=== PATIENT | male | born 1960 ===

== ENCOUNTER 2016-12-25 18:07 | Inpatient (IN) ==
[2016-12-25] MEDS ORDERED: ALBUTEROL/IPRATROPIUM 3 ML NEB RESP TX STA (18:26)
[2016-12-25] MEDS ORDERED: FUROSEMIDE 40 MG/4 ML VIAL IV STA (18:26)
[2016-12-25] MEDS ORDERED: PHENYLEPHRINE DRIP 40 MG/250 ML PREMIX IV ONE (18:30)
--- NOTE | 2016-12-25 18:31 | EKG Report ---
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
[2016-12-25 18:38] LABS: Basophils # 0.1 10*3/uL (0.0-0.2); Basophils % 0.2 % (0.0-0.8); Hematocrit 40.9 VOL% (42.0-52.0); Hemoglobin 13.4 GM/DL (14.0-18.0); Immature Granulocytes % 2.1 %; Immature Granulocytes Absolute 0.43 #; Lymphocytes # 0.9 10*3/uL (1.4-4.0); Lymphocytes % 4.2 % (21.2-54.2); Mean Corpuscular HGB Conc 32.8 GM/DL (32-36); Mean Corpuscular Hemoglobin 31 PG (27-34); Mean Corpuscular Volume 93.6 FL (87-102); Neutrophils # 18.2 10*3/uL (1.4-7.4); Neutrophils % 88.5 % (38.7-73.9); Platelet Count 128 T/CUMM (130-400); Red Blood Count 4.37 MC/CUMM (3.8-5.5); Red Cell Distribution Width 13.3 % (9.3-17.3); White Blood Count 20.6 T/CUMM (4-12)
--- NOTE | 2016-12-25 18:41 | Emergency Department Note ---
Steven Castano Brittany, am scribing for, and in the presence of, Adeel Mix MD 18:39. Dominguez Castano Charles R, MD, personally performed the services described in this documentation, ascribed by Sandra Harris in my presence, and it is both accurate and complete [id number] . Arrival - Arrival Chief Complaint: Weakness Stated Complaint: Weakness; hypotension ED Nursing Triage Note: Brought in by EMS c/o generalized weakness and hypotension-onset this morning. EMS reports patient's BP was 42/26 upon their arrival at the clinic. Denies pain or SOB. Currently on Dopamine infusion started en route. Mode of Arrival: Stretcher Limitations: No Limitations Source: Patient Time Seen by Provider: 12/25/16 18:20 - History of Present Illness HPI Narrative: This is a 56 y/o [place] male, who presents to the ED by EMS for further evaluation of generalized weakness and hypotension which started earlier this morning. Per EMS, pt's states pt was not acting himself either. Pt denies any CP or SOB. Pt was started on a Dopamine infusion en route. Pt's BP was 42/ 26 upon arrival at [facility]. Pt's denies a fever. Pt has no other complaints/ pain in the ED at this time. Pt has a PMHx of seizures and cellulitis. Pt denies a surgical Hx. Pt denies a family medical Hx. Pt denies the use of tobacco products and street drugs, but drinks alcohol on occasional. Onset (ago): hour(s) (Started this morning) Consistency: constant Severity: moderate Allergies/Adverse Reactions: Allergies Allergy/AdvReac Type Severity Reaction Status Date / Time No Known Allergies Allergy Verified 12/25/16 18:16 Review of System - Review of System 12 point system: reviewed and no additional remarkable complaints except as stated - Review of System Constitutional: Present: weakness (Generailzed ). Absent: fever Cardiovascular: Absent: chest pain, dyspnea on exertion Endocrine: Present: other (Hypotension) Medical,Surgical,& Family Hx - Medical History Neurology: History of: Seizures Other: History of: Skin Problems (cellulitis) - Social History Smoking Status: Never smoker Frequency of Alcohol Use: Occasionally Type of Drug Use: None Exam Vital Signs: Vital Signs Temperature 97.6 F 12/25/16 18:12 Pulse Rate 90 12/25/16 18:55 Respiratory Rate 20 12/25/16 18:55 Blood Pressure 93/44 12/25/16 18:47 O2 Sat by Pulse Oximetry 100 12/25/16 18:55 - General General appearance: alert, in no apparent distress, other (Bloating to the entire body) - Head Head exam: Present: atraumatic, normocephalic, normal inspection - Eye Eye exam: Present: normal appearance, PERRL, EOMI. Absent: nystagmus, miosis - ENT ENT exam: Present: normal exam, normal oropharynx, TM's normal bilaterally - Neck Neck exam: Present: normal inspection, full ROM, trachea midline. Absent: tenderness, meningismus, lymphadenopathy, thyromegaly - Chest Chest inspection: Present: normal inspection, symmetric chest wall rise. Absent : tenderness, rash, abscess - Respiratory Respiratory exam: Present: rales - Cardiovascular Cardiovascular exam: Present: normal rhythm, tachycardia, murmur (4 out of 6 systolic injection murmur) - Abdominal Exam Abdominal exam: Present: soft, normal bowel sounds. Absent: distention, tenderness, guarding, rebound, rigidity - Rectal Exam Rectal exam: Present: deferred - Extremities Exam Extremities exam: Present: normal inspection, full ROM, normal capillary refill. Absent: tenderness, pedal edema, joint swelling, calf tenderness - Back Exam Back exam: Present: normal inspection, full ROM. Absent: tenderness, muscle spasm, rashes - Neurological Exam Neurological exam: Present: alert, oriented X3, CN II-XII intact. Absent: motor sensory deficit - Psychiatric Psychiatric exam: Present: normal affect, normal mood. Absent: depressed, agitated, anxious, manic - Skin Skin exam: Present: warm, dry, intact, normal color. Absent: rash, cyanosis, diaphoresis ( ), erythema, pallor, mottled Course - Consultations Consultation #1: Hospitalist will admit patient Time: 19:24 Consultation #2: Dr. Sepulveda will come see patient emergency room Time: 19:24 Results - Labs CBC & BMP: 12/25/16 18:18 12/25/16 18:18 Lab Results: I have reviewed the patients labs Critical Care Time Critical Care Time: Yes Total Critical Care Time: 90 Disposition Clinical Impression: Hypotension, Leukocytosis, Thrombocytopenia, Cardiomegaly, Exertional dyspnea, Confusion, Metabolic acidosis, Subtherapeutic serum dilantin level, History of seizures, Hypomagnesemia, Acute renal failure, Anasarca associated with disorder of kidney, Cellulitis of right lower extremity Case discussed with: patient, patient's family Disposition: Still a Patient Condition: Critical Time of Disposition: 19:41
[2016-12-25] MEDS ORDERED: cefTRIAXone 1,000 MG in SODIUM CHLORIDE 0.9% 100 ML IV STA (18:47)
[2016-12-25 18:48] LABS: INR 1.2; PT Patient Result 12.7 SECS
[2016-12-25] MEDS: PHENYLEPHRINE DRIP 40 MG/250 ML PREMIX IV SCH ×2 (18:51→22:54)
[2016-12-25 18:53] LABS: ABG Base Excess -12.7 MMOL/L (-2.5-2.5); ABG HCO3 14.7 MMOL/L (20-26); ABG Oxygen Saturation 95.9 % (95-100); ABG PCO2 39.6 MM HG (35-48); ABG PO2 95.8 MM HG (80-95); ABG TCO2 13.8 MMOL/L (23-27)
[2016-12-25 18:56] LABS: Ammonia 44 UMOL/L (11-32)
[2016-12-25 18:58] LABS: Apearance,Urine CLOUDY (Clear); Bacteria,Urine Occasional /HPF (Few); Bilirubin,Urine Negative (Negative); Blood, Urine Moderate mg/dL (Negative); Glucose,Urine (UA) Negative (Negative); Ketones,Urine Negative (Negative); Mucus,Urine Occasional /LPF (Occasional); Nitrite,Urine Negative (Negative); Protein,Urine 30 MG/DL; RBC,Urine 6 /HPF (0-4); Squamous Epithelial Cell,Urine Occasional /HPF (0-10); Urine Color Yellow (Yellow); Urine Specific Gravity 1.009 (1.001-1.035); Urine Urobilinogen < 2.0 EU/DL (0.2-1.0); WBC,Urine 2 /HPF (0-6)
--- NOTE | 2016-12-25 19:00 | XRay Report ---
Portable chest. Indication: Altered mental status. Comparison: September 04, 2014. The heart is enlarged. There is uncoiling of the thoracic aorta. There is calcific plaque present within the right knob. The pulmonary vasculature is normal. There is elevation of the right hemidiaphragm. No consolidation, pneumothorax, or pleural effusion. Degenerative changes are noted within the spinal column. Impression: Cardiomegaly. Chronic elevation the right hemidiaphragm. PROCEDURE INTERPRETED AT [facility] DEPARTMENT OF RADIOLOGY Final Report Signed by: Dr. Manisha Reynolds
[2016-12-25 19:02] LABS: ABG PH 7.192 (7.35-7.45)
[2016-12-25] MEDS ORDERED: SODIUM BICARBONATE 50 MEQ/50 ML VIAL IV STA (19:03)
[2016-12-25 19:04] LABS: Barbiturates Screen,Urine Negative (Negative); Benzodiazepines Screen,Urine Negative (Negative); Cannabinoid Screen,Urine Negative (Negative); Opiate Screen,Urine Negative (Negative); Phencyclidine Screen,Urine Negative (Negative)
[2016-12-25 19:06] LABS: Band Neutrophils 19 % (0-10); Lymphocytes 3 % (20-55); Metamyelocytes 1 %; Myelocytes 2 %; Platelet Estimate Adequate; Segmented Neutrophils 69 % (50-85); Total Cells Counted 100
[2016-12-25 19:08] LABS: Alanine Aminotransferase 36 U/L (16-61); Albumin 3.3 G/DL (3.4-5.0); Alkaline Phosphatase 90 U/L (45-117); Aspartate Amino Transferase 78 U/L (0-37); Blood Urea Nitrogen 29 MG/DL (7-18); Calcium 8.3 MG/DL (8.5-10.1); Glucose 133 MG/DL (74-106); Magnesium 1.3 MG/DL (1.8-2.4); Osmolality,Calculated 282.7 MOS/KG (273-304); Potassium 3.7 MMOL/L (3.5-5.1); Sodium 138 MMOL/L (136-145)
[2016-12-25] MEDS ORDERED: SODIUM BICARBONATE 50 MEQ/50 ML SYRINGE IV ONE (19:08)
[2016-12-25] MEDS ORDERED: PHENYTOIN INJ 1,000 MG in SODIUM CHLORIDE 0.9% 100 ML IV STA (19:11)
[2016-12-25] MEDS ORDERED: cefTRIAXone 1,000 MG VIAL ONE (19:12)
[2016-12-25] MEDS ORDERED: MAGNESIUM SULF RIDER 2 GM in PREMIX 1 EACH IV STA (19:12)
[2016-12-25] MEDS ORDERED: SODIUM CHLORIDE 0.9% 100 ML IV ONE (19:12)
[2016-12-25 19:24] LABS: Prolactin 11.8 NG/ML
--- NOTE | 2016-12-25 19:29 | CT Report ---
CT of the head without contrast. Indication: Mental status changes. Comparison: August 27, 2014. There is calcific plaque present within the intracranial internal carotid arteries, and some vertebral calcification as well. There is encephalomalacia involving the left posterior frontal lobe, and ex vacuo dilatation of the left lateral ventricle. There are areas of low density along the medial frontal lobes bilaterally, left greater than right, consistent with ischemic change, likely from the IRCARDO distribution. Right basal ganglial lacunar infarct cannot be excluded. There is no mass effect or midline shift. There is no evidence of acute hemorrhage. The calvarium is intact. The included paranasal sinuses and the mastoid air cells are clear. Impression: 1. Stable area of encephalomalacia involving the left frontal lobe. This may be related to remote infarct, previous trauma, or previous hemorrhage. 2. Scattered areas of low density in both A1 distributions, likely related to previous ischemia. Suspected remote lacunar infarct in the right basal ganglia. No definite acute process seen. The CT exam was performed using one or more of the following dose reduction techniques: Automated exposure control, adjustment of the mA and/or kV according to patient size, or use of iterative reconstruction technique. PROCEDURE INTERPRETED AT [facility] DEPARTMENT OF RADIOLOGY Final Report Signed by: Dr. Manisha Reynolds
[2016-12-25] MEDS ORDERED: PIPERACILLIN/TAZOBACTAM 2,250 MG in SODIUM CHLORIDE 0.9% 100 ML IV STA (19:39)
[2016-12-25] MEDS ORDERED: LACTATED RINGERS 500 ML IV ONE (19:40)
[2016-12-25 19:44] LABS: Sedimentation Rate-Westergren 38 MM/HR (0-20)
[2016-12-25] MEDS ORDERED: MAGNESIUM SULF RIDER 50 ML IV ONE (19:48)
--- NOTE | 2016-12-25 19:59 | Hospitalist History & Physical ---
Assessment and Plan (1) Septic shock Status: Acute Assessment and plan: Right lower extremity cellulitis, lactic acid is pending hypotensive on Artur- Synephrine, 500 mL IV bolus given we will give another 2 L normal saline. Patient morbidly obese with a large heart uncomfortable giving 30 mL's per kilo , admitted to the ICU, will need central line, will give zosyn and daptomycin Current Visit: Yes (2) Cirrhosis Status: Acute Assessment and plan: Patient is an alcoholic, platelet count is 128, hemoglobin 13.4, ammonia elevated at 44 Current Visit: Yes (3) ANDRIA (obstructive sleep apnea) Status: Acute Assessment and plan: Unofficially diagnosed Dr. Campuzano to see tomorrow Current Visit: Yes (4) Elevated troponin Status: Acute Assessment and plan: serial troponins and EKG, denies chest pain, stat echo at bedside, Dr Sepulveda is coming to see in ER Current Visit: Yes (5) History of seizures Status: Acute Assessment and plan: dilantin load in Er, dilantin 100 mg IV tid, dilantin level in am Current Visit: Yes (6) Hypomagnesemia Status: Acute Assessment and plan: replacing 4 grams in ER, repeat mg in am Current Visit: Yes (7) Acute renal failure Status: Acute Assessment and plan: us renal and hydration, may be atn due to hypotension, serial bmp Current Visit: Yes (8) Cellulitis of right lower extremity Status: Acute Assessment and plan: daptomycin and zosyn. Current Visit: Yes History of Present Illness Chief complaint: fatigue History of present illness: Mr. Rolon is a 56 y/o [place] male, who presents to the ED by EMS for further evaluation of generalized weakness and hypotension which started earlier this morning. Per EMS, pt's states pt was confused and was severely fatigued. Pt denies any CP or SOB even though he has a troponin of [address] depression in lateral leads. Pt was started on a Dopamine infusion en route as his BP was 42/ 26 upon arrival at [facility]. Pt's denies a fever and he reports no neck stiffness. Patient has chronic lymphedema and severe swelling and erythema of his RLE. Patient is in septic shock. I asked Dr. Sepulveda to see him in the ER. Patient has history of stroke and seizures and is on dilantin at home. He drinks daily approx 3 beers a day. Allergies Allergy/AdvReac Type Severity Reaction Status Date / Time No Known Allergies Allergy Verified 12/25/16 18:16 Medical,Surgical,& Family Hx - Medical History Cardio: No history of: Hypertension Neurology: History of: Cerebrovascular Accident, Seizures Endocrine: No history of: Diabetes Mellitus (NIDDM) Respiratory: History of: Obstructive Sleep Apnea No history of: COPD Other: History of: Skin Problems (cellulitis) - Surgical History Abdominal Surgeries: Surgical HX of: Hernia Repair - Family History Family History: Reports;: Family Diabetes - Social History Smoking Status: Never smoker Frequency of Alcohol Use: Frequently (daily) Type of Drug Use: None Marital Status: Functional capacity: uses cane/walker - Constitutional Constitutional: Present: chills. Absent: fatigue, fever(s), frequent falls, headache(s) - EENT Eyes: Absent: blurry vision, diplopia Ears: Absent: decreased hearing, ear discharge Nose, mouth and throat: Absent: headache(s), sore throat - Cardiovascular Cardiovascular: Present: edema. Absent: chest pain at rest, dyspnea, dyspnea on exertion - Respiratory Respiratory: Present: snoring. Absent: dyspnea, dyspnea on exertion - Gastrointestinal Gastrointestinal: Absent: abdominal pain, constipation, diarrhea, nausea, vomiting - Genitourinary Genitourinary: Absent: difficulty urinating, dysuria - Neurological Neurological: Present: confusion, dizziness. Absent: headache(s), syncope - Psychiatric Psychiatric: Present: depression. Absent: anxiety - Endocrine Endocrine: Present: cold intolerance, fatigue - Hematologic/Lymphatic Hematologic/Lymphatic: Absent: easy bleeding, easy bruising Exam - Constitutional Vitals: Period Temp Pulse Resp BP Sys/Frazier Pulse Ox Last 24 Hr 97.6 F-97.6 F 83-123 16-20 59-118/29-48 94-100 General appearance: severe distress, morbidly obese - Head Head exam: Present: normal inspection, normocephalic - Eye Eye exam: Present: EOMI. Absent: scleral icterus Pupils: Present: GAYLE, normal accommodation - ENT ENT exam: Present: normal exam, normal external ear exam - Neck Neck exam: Present: thyromegaly. Absent: lymphadenopathy - Respiratory Respiratory exam: Present: decreased breath sounds, rhonchi. Absent: wheezes - Cardiovascular Cardiovascular exam: Present: systolic murmur, tachycardia - GI/Abdominal GI/Abdominal exam: Present: normal bowel sounds, soft, other (morbid obesity ). Absent: tenderness - Extremities Exam Extremities exam: Present: edema (right lower extremity) - Neurological Exam Neurological exam: Present: altered, motor sensory deficit (cannot cooperate with full neuro exam. ), reflexes normal - Psychiatric Psychiatric exam: Present: depressed, flat affect - Skin Skin exam: Present: erythema, other (weeping ) Results - Labs CBC & BMP: 12/25/16 18:18 12/25/16 18:18 Lab Results: I have reviewed the past 24 hour labs Labs: mg 1.3, ammonia 44, troponin greater than 6 - EKG EKG shows: sinus rhythm (Sinus tachycardia with ST depression in the lateral leads) - Diagnostic Findings Procedure: Chest x-ray: report reviewed by me (Large heart with chronic elevation of the right hemidiaphragm), CT: report reviewed by me (Head CT shows remote infarct in the right basal ganglia scattered areas of low density in the A1 distribution likely represent previous ischemia and areas of encephalomalacia in the left frontal lobe)
--- NOTE | 2016-12-25 20:22 | Ultrasound Report ---
Bilateral lower extremity venous Doppler with correia scale, Spectral Doppler and color-flow analysis performed and interpreted. Indication: Swelling. Scanning over both common femoral veins, superficial femoral veins, greater saphenous veins and popliteal veins demonstrates normal compressibility, color flow, and augmentation. Impression: No evidence of DVT seen in either lower extremity.. PROCEDURE INTERPRETED AT [facility] DEPARTMENT OF RADIOLOGY Final Report Signed by: Dr. Manisha Reynolds
[2016-12-25] MEDS ORDERED: ONDANSETRON 4 MG/2 ML VIAL IV PRN (21:02)
[2016-12-25] MEDS ORDERED: ALBUTEROL 2.5 MG/3 ML NEB RESP TX PRN (21:02)
[2016-12-25] MEDS ORDERED: MAGNESIUM SULF RIDER 2 GM in PREMIX 1 EACH IV ONE (21:02)
--- NOTE | 2016-12-25 21:28 | Cardiology Consult Note ---
Assessment and Plan (1) Cardiomegaly Status: Acute Assessment and plan: Chronicity unknown. Dr. Mix checked for any significant effusion, he did not see large pericardial effusion. We will obtain echocardiogram in the morning. On physical exam he does not appear to be in heart failure. Current Visit: Yes (2) Cellulitis of right lower extremity Status: Acute Assessment and plan: Hospitalist service is treating this. Current Visit: Yes (3) Confusion Status: Acute Current Visit: Yes (4) Elevated troponin Status: Acute Assessment and plan: Given his clinical presentation, this appears to be secondary to his hypotension and acidemia. It does not appear to be an acute coronary syndrome per se. We will evaluate him with echocardiogram tomorrow. We will treat him with an aspirin. Current Visit: Yes (5) Hypotension Status: Acute Assessment and plan: He may have possible sepsis. There may be an element of volume depletion ( urine seems concentrated) disease. Hospitalist services treating. I do not believe this is cardiogenic shock because he is not in heart failure. Lungs are clear on chest x-ray and exam, there is no jugular venous distention. Current Visit: Yes (6) Metabolic acidosis Status: Acute Current Visit: Yes (7) ANDRIA (obstructive sleep apnea) Status: Chronic Current Visit: Yes (8) Thrombocytopenia Status: Acute Current Visit: Yes History of Present Illness - Data of Consult Patient: new to practice Consult date: 12/25/16 Requesting Physician: Rima Buckley - Consult Narrative Reason for consult: cardiomegaly History of present illness: The patient is evaluated emergently in the ICU at the request of Dr. Buckley Mr. Rolon is a 56 year old male without a prior cardiac history, who was admitted to the hospital with hypertension. History is obtained from the patient and the patient's . He has no prior cardiac history. He has not been experiencing any recent cardiac symptoms other than right lower extremity edema related to a wound that he has been treated for. He has not been expressing any chest pain, shortness of breath, orthopnea, palpitations. The patient's reports that he was in his usual state of health until approximately one this morning he began experiencing chills and subjective fevers. She went to work, and he continued to feel unwell throughout the day. When he picked her up from work at 230, he did not look well, and wasn't acting normally. He acknowledges that he was seeing white, not seeing normally. He felt generally weak and tired. She took him to the local clinic where he was found to be hypertensive, and eventually he was transferred to her ICU. He has been hypotensive and acidemic. Currently he is without acute complaints. Other than that described above, he denies any other recent illnesses. He has no other acute complaints. CC: Phil Marley MD - Home Medications and Allergies Home Medications: Home Medications Medication Instructions Recorded Confirmed Type Donepezil [Aricept] 5 mg PO BEDTIME 12/25/16 12/25/16 History Ergocalciferol (Vitamin D2) 50,000 unit PO Q7D 12/25/16 12/25/16 History [Vitamin D2] Phenytoin ER Cap [Dilantin Cap] 200 mg PO TID 12/25/16 12/25/16 History Zinc Oxide [Zinc Oxide 40% Oint] 1 applic TOP TID 12/25/16 12/25/16 History Allergies/Adverse Reactions: Allergies Allergy/AdvReac Type Severity Reaction Status Date / Time No Known Allergies Allergy Verified 12/25/16 18:16 12 point system: reviewed and no additional remarkable complaints except as stated Medical,Surgical,& Family Hx - Medical History Cardio: No history of: Hypertension Neurology: History of: Cerebrovascular Accident, Seizures Endocrine: No history of: Diabetes Mellitus (NIDDM) Respiratory: History of: Obstructive Sleep Apnea No history of: COPD Other: History of: Skin Problems (cellulitis) - Surgical History Abdominal Surgeries: Surgical HX of: Hernia Repair - Family History Family History: Reports;: Family Diabetes - Social History Smoking Status: Never smoker Frequency of Alcohol Use: Occasionally (the patient tells me infrequently) Type of Drug Use: None Marital Status: Lives With:: Spouse Functional capacity: independent ambulation Physical Examination Vital Signs Temp Pulse Resp BP Pulse Ox 97.6 F 121 H 20 118/48 94 L 12/25/16 18:12 12/25/16 18:12 12/25/16 18:12 12/25/16 18:12 12/25/16 18:12 Other: General appearance: normal weight, no acute distress - Head Head exam: Present: normal inspection, normocephalic, atraumatic. Absent: hematoma, laceration - Eye Eye exam: Present: EOMI. Absent: conjunctival injection, nystagmus, periorbital swelling, scleral icterus, laceration to eyelids Pupils: Present: PERRL. Absent: constricted, dilated, fixed, irregular, unequal - ENT ENT exam: Present: normal exam, normal external ear exam - Neck Neck exam: Present: normal inspection. Absent: lymphadenopathy, meningismus, tenderness, thyromegaly - Respiratory Respiratory exam: Present: clear to auscultation bilaterally. Absent: accessory muscle use, chest wall tenderness - Cardiovascular Cardiovascular exam: Present: regular rate and rhythm. Absent: carotid bruit, gallop, JVD, rubs - GI/Abdominal GI/Abdominal exam: Present: normal bowel sounds, soft. Absent: distended, firm , guarding, hernia, mass, tenderness, rebound. - Extremities Exam Extremities exam: Present: The right lower extremity has 2+ edema. Bilateral posterior tibialis pulses are readily palpable. Absent: calf tenderness - Back Exam Back exam: Unable to examine due to patient on his back and hypotensive. - Neurological Exam Neurological exam: Present: alert, oriented X3, grossly intact without resting or intention tremor - Psychiatric Psychiatric exam: Present: normal affect, normal mood - Skin Skin exam: Present: normal color, warm, dry, intact. Absent: cyanosis, diaphoretic, rash, urticaria Result/EKG - Labs CBC & BMP: 12/25/16 18:18 12/25/16 18:18 Lab Results: I have reviewed the past 24 hour labs - Diagnostic Findings Procedure: Chest x-ray: report reviewed by me - EKG EKG results: interpreted by me, sinus rhythm (lateral ST depression)
[2016-12-25] MEDS ORDERED: SODIUM CHLORIDE 0.9% 2,000 ML IV ONE (21:30)
[2016-12-25] MEDS ORDERED: FAMOTIDINE 20 MG/2 ML VIAL IV SCH (22:00)
[2016-12-25 22:09] LABS: Free T4 (Free Thyroxine) 0.98 NG/DL (0.76-1.46); Thyroid Stimulating Hormone 1.79 uIU/ml (0.358-3.74)
[2016-12-25 22:10] LABS: Troponin I Only 3.14 NG/ML (0.00-0.045)
[2016-12-25] MEDS: LACTULOSE 20 GM/30 ML UDCUP PO SCH (22:13)
[2016-12-25] MEDS: NOREPINEPHRINE 8 MG in SODIUM CHLORIDE 0.9% 242 ML IV SCH (22:49)
[2016-12-25 22:58] LABS: Apearance,Urine CLOUDY (Clear); Bacteria,Urine Occasional /HPF (Few); Bilirubin,Urine Negative (Negative); Blood, Urine Large mg/dL (Negative); Glucose,Urine (UA) Negative (Negative); Ketones,Urine 5 mg/dL (Negative); Mucus,Urine Occasional /LPF (Occasional); Nitrite,Urine Negative (Negative); Protein,Urine 100 MG/DL; RBC,Urine 195 /HPF (0-4); Squamous Epithelial Cell,Urine Occasional /HPF (0-10); Urine Color Amber (Yellow); Urine Specific Gravity 1.015 (1.001-1.035); WBC,Urine 24 /HPF (0-6)
[2016-12-26] MEDS: SODIUM CHLORIDE 0.9% 1,000 ML IV SCH ×4 (00:03→16:05)
--- NOTE | 2016-12-26 01:36 | EKG Report ---
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
[2016-12-26] MEDS: PIPERACILLIN/TAZOBACTAM 3,375 MG in SODIUM CHLORIDE 0.9% 100 ML IV SCH ×3 (02:13→18:09)
[2016-12-26] MEDS: NOREPINEPHRINE 8 MG in SODIUM CHLORIDE 0.9% 242 ML IV SCH ×4 (02:50→14:11)
[2016-12-26 03:48] LABS: ABG Base Excess -10.2 MMOL/L (-2.5-2.5); ABG HCO3 16.4 MMOL/L (20-26); ABG Oxygen Saturation 96.2 % (95-100); ABG PCO2 48.6 MM HG (35-48); ABG PO2 92.4 MM HG (80-95); ABG TCO2 16.9 MMOL/L (23-27); Allen Test Positive
[2016-12-26 03:57] LABS: ABG PH 7.184 (7.35-7.45)
[2016-12-26] MEDS ORDERED: SODIUM BICARBONATE 50 MEQ/50 ML SYRINGE IV ONE (04:13)
[2016-12-26 05:14] LABS: Basophils % 0.1 % (0.0-0.8); Hematocrit 33.8 VOL% (42.0-52.0); Hemoglobin 11.2 GM/DL (14.0-18.0); Immature Granulocytes % 6.5 %; Immature Granulocytes Absolute 1.52 #; Lymphocytes # 0.5 10*3/uL (1.4-4.0); Mean Corpuscular HGB Conc 33.1 GM/DL (32-36); Mean Corpuscular Hemoglobin 31 PG (27-34); Mean Corpuscular Volume 93.6 FL (87-102); Monocytes # 1.4 10*3/uL (0.11-0.8); Monocytes % 6.1 % (1.7-12.7); Neutrophils # 19.9 10*3/uL (1.4-7.4); Neutrophils % 85.3 % (38.7-73.9); Platelet Count 106 T/CUMM (130-400); Red Blood Count 3.61 MC/CUMM (3.8-5.5); Red Cell Distribution Width 13.8 % (9.3-17.3); White Blood Count 23.3 T/CUMM (4-12)
[2016-12-26 05:42] LABS: Band Neutrophils 15 % (0-10); Hypochromasia Slight; Lymphocytes 1 % (20-55); Metamyelocytes 9 %; Microcytosis 1+; Myelocytes 1 %; Segmented Neutrophils 70 % (50-85); Total Cells Counted 100
[2016-12-26 05:43] LABS: Platelet Estimate Decreased
[2016-12-26 05:46] LABS: Albumin 2.7 G/DL (3.4-5.0); Bilirubin,Total 3.6 MG/DL (0.2-1.0); Calcium 7.3 MG/DL (8.5-10.1); Osmolality,Calculated 295.7 MOS/KG (273-304); Potassium 4.1 MMOL/L (3.5-5.1); Risk Ratio 1.83; Total Protein 6.5 G/DL (6.4-8.3)
[2016-12-26] MEDS: PHENYTOIN 100 MG/2 ML VIAL IV SCH ×3 (06:05→22:02)
--- NOTE | 2016-12-26 08:09 | Hospitalist Progress Note ---
Assessment and Plan (1) Septic shock Status: Acute Assessment and plan: Patient seems to have septic shock with source not clear. Although cellulitis lower leg is suspected but it seems more like a venous stasis. This area on left upper thigh as mentioned in exam I'm not sure if there is underlying abscess to need to consult surgery. Patient is on antibiotics was continued at [facility] will be ordered for tomorrow as patient is on daptomycin Current Visit: Yes (2) Acute renal failure Status: Acute Assessment and plan: Probably prerenal as patient was hypotensive. It is improving. We'll continue to monitor. Cardiology plan to do echocardiogram will start IV fluids cautiously Current Visit: Yes (3) Metabolic acidosis Status: Acute Assessment and plan: Has resolved Current Visit: Yes (4) Cellulitis of right lower extremity Status: Acute Assessment and plan: Cultures were obtained on admission pending. I am not sure if there is a cellulitis and lower legs but does mention about the area on left thigh. Surgery will be consulted Current Visit: Yes (5) Elevated troponin Status: Acute Assessment and plan: Seen by cardiology and the think patient has secondary Type II NSTEMI. Troponin level is down today cardiology following Current Visit: Yes (6) History of seizures Status: Acute Assessment and plan: On Dilantin. No seizures overnight reported Current Visit: Yes Hospitalist: Subjective Interval history: Mr. Rolon is a 56 year old male with history of diabetes mellitus or obstructive sleep apnea CVA and seizure disorder presented yesterday ER with generalized weakness and hypotension. He was confused and fatigued. He was noted to have elevated troponin and EKG changes. He had no chest pain or shortness of breath. He had some subjective fever and chills. There was no fever noted in emergency department or overnight here in the ICU. He received dopamine infusion on the way to the hospital but now on phenylephrine infusion. He had it echocardiogram done by the ER physician and no pericardial effusion noted. Cardiology has seen the patient and the patient has elevated troponin due to hypotension and sepsis. Patient had pulled IV so blood pressure didn't go this morning. IV has been restarted and patient is back on phenylephrine infusion Exam - Constitutional Vitals: Period Temp Pulse Resp BP Sys/Frazier Pulse Ox Last 24 Hr 96.7 F-98.9 F 76-107 12-34 51-143/27-75 96-100 General appearance: morbidly obese - Head Head exam: Present: normocephalic - Respiratory Respiratory exam: Present: clear to auscultation bilaterally. Absent: rales, rhonchi - Cardiovascular Cardiovascular exam: Present: regular rate and rhythm. Absent: tachycardia - GI/Abdominal GI/Abdominal exam: Present: normal bowel sounds, soft. Absent: tenderness - Extremities Exam Extremities exam: Present: edema (bilateral lower extremities edema with some venous stasis. There is a area of 4 swelling and redness right upper medial thigh but there is no induration noted and nontender) - Neurological Exam Neurological exam: Present: alert, oriented X3 Results - Labs CBC & BMP: 12/26/16 04:43 12/26/16 04:43 Lab Results: I have reviewed the past 24 hour labs
--- NOTE | 2016-12-26 08:59 | EKG Report ---
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
--- NOTE | 2016-12-26 09:10 | General Surgery Consult Note ---
Assessment and Plan (1) Cellulitis of right lower extremity Status: Acute Assessment and plan: This patient has cellulitis of his right lower extremity with swelling and there is no DVT on duplex ultrasound done in the ER. I do not feel any area that needs any surgical attention either on his right leg or his left inner thigh. There is no perirectal abscess. There is no indication for surgical intervention. Continue antibiotics and treatment for cellulitis. Call back with further questions. I will sign off for now. Current Visit: Yes History of Present Illness Chief complaint: Redness on left thigh History of present illness: Mr. Rolon is a 56 year old male who is transferred to [facility] from [facility] with hypotension and presumed septic shock. He was admitted to the ICU pictures and is being treated empirically for sepsis without any source identified by the medical team. The abdominal doctor for this. The patient's history is not useful because of his mental status. He has been admitted in the past with cellulitis of his legs and sepsis. He is very acidotic and his white blood cell count is 23,000. He is on levophed. Home Medications Medication Instructions Recorded Confirmed Type Donepezil [Aricept] 5 mg PO BEDTIME 12/25/16 12/25/16 History Ergocalciferol (Vitamin D2) 50,000 unit PO Q7D 12/25/16 12/25/16 History [Vitamin D2] Phenytoin ER Cap [Dilantin Cap] 200 mg PO TID 12/25/16 12/25/16 History Zinc Oxide [Zinc Oxide 40% Oint] 1 applic TOP TID 12/25/16 12/25/16 History Allergies Allergy/AdvReac Type Severity Reaction Status Date / Time No Known Allergies Allergy Verified 12/25/16 18:16 Medical,Surgical,& Family Hx - Medical History Cardio: No history of: Hypertension Neurology: History of: Cerebrovascular Accident, Seizures Endocrine: No history of: Diabetes Mellitus (NIDDM) Respiratory: History of: Obstructive Sleep Apnea No history of: COPD Other: History of: Skin Problems (cellulitis) - Surgical History Abdominal Surgeries: Surgical HX of: Hernia Repair - Family History Family History: Reports;: Family Diabetes - Social History Smoking Status: Never smoker Frequency of Alcohol Use: Occasionally (the patient tells me infrequently) Type of Drug Use: None - Constitutional Constitutional: Present: as per HPI - EENT Nose, mouth and throat: Present: as per HPI - Cardiovascular Cardiovascular: Present: as per HPI - Respiratory Respiratory: Present: as per HPI - Gastrointestinal Gastrointestinal: Present: as per HPI - Genitourinary Genitourinary: Present: as per HPI - Musculoskeletal Musculoskeletal: Present: as per HPI - Neurological Neurological: Present: as per HPI - Endocrine Endocrine: Present: as per HPI Hematologic/Lymphatic: Present: as per HPI Exam - Constitutional Vitals: Period Temp Pulse Resp BP Sys/Frazier Pulse Ox Last 24 Hr 96.7 F-98.9 F 76-107 12-34 51-143/27-75 96-100 General appearance: mild distress, morbidly obese - Head Head exam: Present: normal inspection, normocephalic - Eye Eye exam: Present: EOMI Pupils: Present: GAYLE - ENT ENT exam: Present: normal exam Mouth exam: Present: normal external inspection, normal voice - Neck Neck exam: Present: normal inspection, trachea midline - Respiratory Respiratory exam: Present: clear to auscultation bilaterally. Absent: accessory muscle use, chest wall tenderness - Cardiovascular Cardiovascular exam: Present: RRR. Absent: systolic murmur, tachycardia - GI/Abdominal GI/Abdominal exam: Present: normal bowel sounds, soft. Absent: distended, tenderness, rebound - Extremities Exam Extremities exam: Present: other (There is fairly severe cellulitis of the right leg which is edematous but there is no focal area of fluctuance or induration. There is no crepitus. There is an area in the left inner thigh that has some erythema insistent with cellulitis but there is no induration or fluctuance here either. A rectal exam was performed and there is no perirectal abscess.) - Back Exam Back exam: Present: normal inspection - Neurological Exam Neurological exam: Present: alert, oriented X3 Speech: Present: normal - Skin Skin exam: Present: normal color, warm Results - Labs CBC & BMP: 12/26/16 04:43 12/26/16 04:43
--- NOTE | 2016-12-26 09:16 | Ultrasound Report ---
US renal Bilateral Indication: Hydronephrosis. RENAL ULTRASOUND: Grayscale and color Doppler imaging the kidneys performed. Right kidney measures 111 x 56 x 61 mm. Left kidney measures 118 x 67 x 64 mm. No hydronephrosis, mass, cyst or calcification identified on either side. Color Doppler flow at both renal rick documented. Impression: Negative ultrasound the kidneys. PROCEDURE INTERPRETED AT [facility] DEPARTMENT OF RADIOLOGY Final Report Signed by: David Luevano M.D.
[2016-12-26] MEDS: ASPIRIN EC 325 MG TABLET PO SCH (10:00)
[2016-12-26] MEDS: LACTULOSE 20 GM/30 ML UDCUP PO SCH ×2 (10:00→16:04)
[2016-12-26] MEDS: FAMOTIDINE 20 MG/2 ML VIAL IV SCH ×2 (10:01→22:01)
[2016-12-26] MEDS ORDERED: HEPARIN LOCK FLUSH 500 UNIT/5 ML SYRINGE IV ONE (13:32)
[2016-12-26] MEDS: LORazepam 2 MG/1 ML VIAL IV PRN (14:47)
--- NOTE | 2016-12-26 14:56 | Post Interventional Procedure ---
Pre-op diagnosis: sepsis from unknown source Post-op diagnosis: same Procedure: Central venous catheter placement Contrast: none Flouroscopy: none Radiologist: Ron Desir Anesthesia: local Specimens: none sent Estimated blood loss: minimal (3 mL) Complications: none Condition: stable Description/Findings: right IJ central line placed and ready for use Assessment and Plan - Time spent with patient Time spent with patient: Less than 30 minutes
--- NOTE | 2016-12-26 15:00 | Ultrasound Report ---
US guide vascular access, IR cvc insert nt >5 Central Line placement using ultrasound guidance Ultrasound of the right neck Clinical Information: 56-year-old male with leukocytosis and limited venous access. Central line is requested for stable short term intravenous access. Physician[s]: Dr. Desir Procedure: The patient was advised of the benefits, risks, and alternatives of the procedure and informed consent was obtained. A time out was performed with verification of the patient's name, MRN, site of procedure, and type of procedure to be performed. The patient was positioned in the supine position on the angiographic table. The site was prepped and draped in the usual sterile fashion. Local anesthesia only was used for the procedure. The neck and anterior chest wall were anesthetized with lidocaine. The right internal jugular vein was accessed using a microintroducer needle via a lateral approach with ultrasound guidance. Ultrasound image capture of vascular access was obtained for the patient's permanent record. A 0.018" cope wire was advanced into the superior vena cava, the needle was removed and a microintroducer sheath was placed. An Amplatz wire was then passed into the inferior vena cava. An incision was made at the puncture site using a scalpel. The tract was serially dilated over the wire. A 7 [place]ian triple lumen 20 cm Arrow central venous catheter was placed with its tip at the cavoatrial junction. Catheter tip position was confirmed with postprocedural chest radiograph. The ports aspirate and flush freely. The catheter was sutured in place using 3-0 silk and covered with a sterile dressing. The patient tolerated the procedure well and was returned to the PRU in stable condition. EBL: < 5 mL. Complications: None. Total Fluoroscopy Time: 0 minutes. Total number of images obtained during the study: 1 Conclusion: Successful placement of a triple lumen central venous catheter via the right internal jugular vein. The catheter is ready for immediate use. PROCEDURE INTERPRETED AT [facility] DEPARTMENT OF RADIOLOGY Final Report Signed by: Ron Desir
--- NOTE | 2016-12-26 15:01 | XRay Report ---
Exam: XR chest post procedure Indication: Central line placement Comparison study: 12/25/2016 Findings: Critics silhouette is mildly enlarged, similar prior. Low lung volumes with basilar opacities likely representing atelectasis appear similar to prior. Small bilateral pleural effusions are also suggested. There is no pneumothorax. Right-sided central venous catheter is noted in place with the tip terminating near the cavoatrial junction. Impression: No pneumothorax following right IJ central venous catheter placement. No other significant change. PROCEDURE INTERPRETED AT [facility] DEPARTMENT OF RADIOLOGY Final Report Signed by: Ron Desir
[2016-12-26] MEDS: THIAMINE INJ 100 MG, FOLIC ACID INJ 1 MG, MULTIVITAMIN INJ 10 ML in SODIUM CHLORIDE 0.9... IV SCH (16:05)
--- NOTE | 2016-12-26 16:11 | Sleep Medicine Consult ---
Assessment and Plan (1) ANDRIA (obstructive sleep apnea) Status: Chronic Assessment and plan: It is certainly likely that this patient has underlying obstructive sleep apnea but I cannot confirm previous evaluation or diagnosis. He denies previous evaluation but I do not know how reliable his history is. He is too unstable at this point to do HST evaluation. If he develops respiratory insufficiency, related to his current illness, I would defer to pulmonary for management of acute respiratory failure. We will evaluate him for sleep apnea when stable medically. Current Visit: Yes History of Present Illness Chief complaint: Sleep apnea History of present illness: Mr. Rolon is a 56 year old male this patient was admitted with septic shock from cellulitis with severe metabolic acidosis and abnormal cardiac isoenzymes. He was noted to have cardiomegaly. He does have a history of snoring and daytime fatigue and sleepiness. He does awaken from sleep short of breath but denies ever having prior sleep evaluation. Currently he is in restraints and on pressor support. He is receiving supplemental oxygen and his normal O2 sats. ABGs today show mild CO2 retention with persistent significant metabolic acidosis. Home Medications Medication Instructions Recorded Confirmed Type Donepezil [Aricept] 5 mg PO BEDTIME 12/25/16 12/25/16 History Ergocalciferol (Vitamin D2) 50,000 unit PO Q7D 12/25/16 12/25/16 History [Vitamin D2] Phenytoin ER Cap [Dilantin Cap] 200 mg PO TID 12/25/16 12/25/16 History Zinc Oxide [Zinc Oxide 40% Oint] 1 applic TOP TID 12/25/16 12/25/16 History Allergies Allergy/AdvReac Type Severity Reaction Status Date / Time No Known Allergies Allergy Verified 12/25/16 18:16 Review of systems: Notable for sleepiness but difficult to obtain further history based on his current condition. Exam (Pulmonay) H&P - Constitutional Vitals: Period Temp Pulse Resp BP Sys/Frazier Pulse Ox Last 24 Hr 96.7 F-98.9 F 76-107 12-34 51-143/27-81 96-100 Exam: He is chronically ill-appearing. Pupils equal round reactive to light and accommodation. Extraocular movements intact. Oropharynx with a class III Mallampati exam. Neck is supple without adenopathy or thyromegaly. No supraclavicular adenopathy is noted. Chest with symmetrical breath sounds without focal wheeze, rhonchi, or rales. Cardiac exam reveals a regular rhythm without murmur or gallop. Abdomen soft nontender without palpable hepatosplenomegaly or mass. Extremities with chronic venous insufficiency changes and some evidence of cellulitis involving his right leg up to the thigh. He does have trace pitting edema. Neurologically, he seems somewhat confused but does answer most questions appropriately. Medical,Surgical,& Family Hx - Medical History Cardio: No history of: Hypertension Neurology: History of: Cerebrovascular Accident, Seizures Endocrine: No history of: Diabetes Mellitus (NIDDM) Respiratory: History of: Obstructive Sleep Apnea No history of: COPD Other: History of: Skin Problems (cellulitis) - Surgical History Abdominal Surgeries: Surgical HX of: Hernia Repair - Family History Family History: Reports;: Family Diabetes - Social History Smoking Status: Never smoker Frequency of Alcohol Use: Frequently Type of Drug Use: None Results - Labs CBC & BMP: 12/26/16 04:43 12/26/16 04:43 Lab Results: I have reviewed the past 24 hour labs
--- NOTE | 2016-12-26 17:13 | Cardiology Progress Note ---
Gabe Castano Vanessa, RN, am scribing for, and in the presence of, Chrissy Sepulveda MD 17:13. Assessment and Plan - Time spent with patient Time spent with patient: Greater than 30 minutes (1) Cardiomegaly Status: Acute Assessment and plan: Chronicity of this is unknown. Echocardiogram to be obtained this morning and we will review. Current Visit: Yes (2) Cellulitis of right lower extremity Status: Acute Assessment and plan: Defer primary management to hospital medicine. Current Visit: Yes (3) Confusion Status: Acute Current Visit: Yes (4) Elevated troponin Status: Acute Assessment and plan: Serial troponin checks have revealed downward trending troponin level. Troponin this morning 2.55. No S/S for ACS at this time. Current Visit: Yes (5) Hypotension Status: Acute Assessment and plan: This is improved from BP on admission. Current SBP is 84-120 mmHg. Vasopressors have been weaned and discontinued as tolerated. Currently receiving IV Levophed 20 mcg/min and IV hydration. Hypertension most likely related to possible sepsis. Current Visit: Yes (6) Metabolic acidosis Status: Acute Current Visit: Yes (7) Thrombocytopenia Status: Acute Current Visit: Yes (8) ANDRIA (obstructive sleep apnea) Status: Chronic Current Visit: Yes Cardiology - PN: Subj Interval history: Patient under close observation in ICU this morning. He is calm and not agitated. He is oriented to person and place, and requires reorientation to time. Denies pain, shortness of breath, or other complaint at this time. Has had some slight confusion overnight and has pulled out peripheral IVs. IV access being reinitiated at this time to resume vasopressor, Levophed. Current blood pressure is 84/37 with a MAP of 52. Sinus tachycardia per monitor with pulse rate no greater than 110. No overt ectopy or dysrhythmia seen. White blood cells with increased to 23,300 today, H&H 11.2 and 33.8. Thrombocytopenia noted, slightly worsened today. Sodium is 145, potassium 4.1, magnesium improved to 2.2. Creatinine with improvement to 1.9 from 3.3 on admission. Troponin levels have consecutively trended down. ABGs noted. Exam (Progress Note) - Constitutional Vitals: Period Temp Pulse Resp BP Sys/Frazier Pulse Ox Last 24 Hr 96.7 F-98.9 F 76-107 12-34 51-143/27-75 96-100 Exam: General appearance: Overweight, no acute distress - Head Head exam: Present: normal inspection, normocephalic, atraumatic. Absent: hematoma, laceration - Eye Eye exam: Present: EOMI. Absent: conjunctival injection, nystagmus, periorbital swelling, scleral icterus, laceration to eyelids Pupils: Present: PERRL. Absent: constricted, dilated, fixed, irregular, unequal - ENT ENT exam: Present: normal exam, normal external ear exam - Neck Neck exam: Present: normal inspection. Absent: lymphadenopathy, meningismus, tenderness, thyromegaly - Respiratory Respiratory exam: Present: clear to auscultation bilaterally. Absent: accessory muscle use, chest wall tenderness - Cardiovascular Cardiovascular exam: Present: regular rate and rhythm, tachycardia. Absent: carotid bruit, gallop, JVD, rubs - GI/Abdominal GI/Abdominal exam: Present: normal bowel sounds, soft, obese. Absent: distended , firm, guarding, hernia, mass, tenderness, rebound. - Extremities Exam Extremities exam: Present: The right lower extremity has 2+ edema. Bilateral posterior tibialis pulses are readily palpable. Absent: calf tenderness - Back Exam Back exam: Unable to examine due to patient on his back and hypotensive. - Neurological Exam Neurological exam: Present: alert, oriented X2, grossly intact without resting or intention tremor, slightly confused - Psychiatric Psychiatric exam: Present: normal affect, normal mood. Absent: Agitation - Skin Skin exam: Present: normal color, warm, dry, intact. Absent: cyanosis, diaphoretic, rash, urticaria Result/EKG - Labs CBC & BMP: 12/26/16 04:43 12/26/16 04:43 Lab Results: I have reviewed the past 24 hour labs Labs: Laboratory Results - last 24 hr 12/25/16 12/25/16 12/25/16 21:29 21:29 21:29 WBC RBC Hgb Hct MCV MCH MCHC RDW Plt Count MPV Neut % (Auto) Lymph % (Auto) Rankin % (Auto) Eos % (Auto) Baso % (Auto) Neut # (Auto) Lymph # (Auto) Rankin # (Auto) Eos # (Auto) Baso # (Auto) Total Counted Immature Gran % Nucleated RBC % Immature Gran # Segmented Neutrophils Band Neutrophils Lymphocytes Monocytes Metamyelocytes Myelocytes Nucleated RBCs # Platelet Estimate Hypochromasia Microcytosis ABG pH ABG pCO2 ABG pO2 ABG HCO3 ABG Total CO2 ABG O2 Saturation ABG Base Excess FiO2 Sodium Potassium Chloride Carbon Dioxide Anion Gap BUN Creatinine GFR Calculation BUN/Creatinine Ratio Glucose Hemoglobin A1c 5.8 Calculated Osmolality Lactic Acid 7.0 H Calcium Magnesium Total Bilirubin AST ALT Alkaline Phosphatase Ammonia 35 H Troponin I 3.140 H D Total Protein Albumin Globulin Albumin/Globulin Ratio Triglycerides Cholesterol LDL Cholesterol VLDL Cholesterol HDL Cholesterol Heart Disease Risk Ratio Free T4 0.98 TSH 3rd Generation 1.790 Random Cortisol 14.6 Urine Color Urine Appearance Urine pH Ur Specific [place] Urine Protein Urine Glucose (UA) Urine Ketones Urine Blood Urine Nitrate Urine Bilirubin Urine Urobilinogen Urine Leukocytes Urine RBC Urine WBC Ur Squamous Epith Cells Urine Bacteria Urine Mucus Ur Culture Indicated? Phenytoin 12/25/16 12/25/16 12/26/16 22:48 23:37 00:56 WBC RBC Hgb Hct MCV MCH MCHC RDW Plt Count MPV Neut % (Auto) Lymph % (Auto) Rankin % (Auto) Eos % (Auto) Baso % (Auto) Neut # (Auto) Lymph # (Auto) Rankin # (Auto) Eos # (Auto) Baso # (Auto) Total Counted Immature Gran % Nucleated RBC % Immature Gran # Segmented Neutrophils Band Neutrophils Lymphocytes Monocytes Metamyelocytes Myelocytes Nucleated RBCs # Platelet Estimate Hypochromasia Microcytosis ABG pH ABG pCO2 ABG pO2 ABG HCO3 ABG Total CO2 ABG O2 Saturation ABG Base Excess FiO2 Sodium Potassium Chloride Carbon Dioxide Anion Gap BUN Creatinine GFR Calculation BUN/Creatinine Ratio Glucose Hemoglobin A1c Calculated Osmolality Lactic Acid 5.4 H Calcium Magnesium Total Bilirubin AST ALT Alkaline Phosphatase Ammonia Troponin I 2.550 H Total Protein Albumin Globulin Albumin/Globulin Ratio Triglycerides Cholesterol LDL Cholesterol VLDL Cholesterol HDL Cholesterol Heart Disease Risk Ratio Free T4 TSH 3rd Generation Random Cortisol Urine Color Rani Urine Appearance Cloudy Urine pH 5.0 Ur Specific [place] 1.015 Urine Protein 100 Urine Glucose (UA) Negative Urine Ketones 5 Urine Blood Large Urine Nitrate Negative Urine Bilirubin Negative Urine Urobilinogen 2.0 H Urine Leukocytes Small H Urine RBC 195 Urine WBC 24 Ur Squamous Epith Cells Occasional Urine Bacteria Occasional Urine Mucus Occasional Ur Culture Indicated? Ordered separately Phenytoin 12/26/16 12/26/16 12/26/16 03:06 04:43 04:43 WBC 23.3 H RBC 3.61 L Hgb 11.2 L D Hct 33.8 L MCV 93.6 MCH 31 MCHC 33.1 RDW 13.8 Plt Count 106 L MPV 10.0 Neut % (Auto) 85.3 H Lymph % (Auto) 2.0 L Rankin % (Auto) 6.1 Eos % (Auto) 0.0 Baso % (Auto) 0.1 Neut # (Auto) 19.9 H Lymph # (Auto) 0.5 L Rankin # (Auto) 1.4 H Eos # (Auto) 0.0 Baso # (Auto) 0.0 Total Counted 100 Immature Gran % 6.5 Nucleated RBC % 0.0 Immature Gran # 1.52 Segmented Neutrophils 70 Band Neutrophils 15 H Lymphocytes 1 L Monocytes 4 Metamyelocytes 9 Myelocytes 1 Nucleated RBCs # 0.00 Platelet Estimate Decreased Hypochromasia Slight Microcytosis 1+ ABG pH 7.184 L* ABG pCO2 48.6 H ABG pO2 92.4 ABG HCO3 16.4 L ABG Total CO2 16.9 L ABG O2 Saturation 96.2 ABG Base Excess -10.2 L FiO2 28.00 Sodium 145 Potassium 4.1 Chloride 109 H Carbon Dioxide 24 Anion Gap 16.1 H BUN 34 H Creatinine 1.90 H GFR Calculation 50 BUN/Creatinine Ratio 17.00 Glucose 106 Hemoglobin A1c Calculated Osmolality 295.7 Lactic Acid Calcium 7.3 L Magnesium Total Bilirubin 3.60 H AST 117 H ALT 50 Alkaline Phosphatase 68 Ammonia Troponin I Total Protein 6.5 Albumin 2.7 L Globulin 3.8 H Albumin/Globulin Ratio 0.7 L Triglycerides 170 H Cholesterol 110 LDL Cholesterol 31.0 VLDL Cholesterol 34.0 HDL Cholesterol 60 Heart Disease Risk Ratio 1.83 Free T4 TSH 3rd Generation Random Cortisol Urine Color Urine Appearance Urine pH Ur Specific [place] Urine Protein Urine Glucose (UA) Urine Ketones Urine Blood Urine Nitrate Urine Bilirubin Urine Urobilinogen Urine Leukocytes Urine RBC Urine WBC Ur Squamous Epith Cells Urine Bacteria Urine Mucus Ur Culture Indicated? Phenytoin 12/26/16 12/26/16 12/26/16 04:43 04:43 04:43 WBC RBC Hgb Hct MCV MCH MCHC RDW Plt Count MPV Neut % (Auto) Lymph % (Auto) Rankin % (Auto) Eos % (Auto) Baso % (Auto) Neut # (Auto) Lymph # (Auto) Rankin # (Auto) Eos # (Auto) Baso # (Auto) Total Counted Immature Gran % Nucleated RBC % Immature Gran # Segmented Neutrophils Band Neutrophils Lymphocytes Monocytes Metamyelocytes Myelocytes Nucleated RBCs # Platelet Estimate Hypochromasia Microcytosis ABG pH ABG pCO2 ABG pO2 ABG HCO3 ABG Total CO2 ABG O2 Saturation ABG Base Excess FiO2 Sodium Potassium Chloride Carbon Dioxide Anion Gap BUN Creatinine GFR Calculation BUN/Creatinine Ratio Glucose Hemoglobin A1c Calculated Osmolality Lactic Acid Calcium Magnesium 2.2 Total Bilirubin AST ALT Alkaline Phosphatase Ammonia 70 H Troponin I Total Protein Albumin Globulin Albumin/Globulin Ratio Triglycerides Cholesterol LDL Cholesterol VLDL Cholesterol HDL Cholesterol Heart Disease Risk Ratio Free T4 TSH 3rd Generation Random Cortisol Urine Color Urine Appearance Urine pH Ur Specific [place] Urine Protein Urine Glucose (UA) Urine Ketones Urine Blood Urine Nitrate Urine Bilirubin Urine Urobilinogen Urine Leukocytes Urine RBC Urine WBC Ur Squamous Epith Cells Urine Bacteria Urine Mucus Ur Culture Indicated? Phenytoin 5.6 L - Diagnostic Findings Procedure: Chest x-ray: image reviewed by me, report reviewed by me - EKG EKG results: interpreted by me, no acute changes EKG shows: tachycardia (Pulse rate 90-110 bpm) Derick Castano Jennifer, MD, personally performed the services described in this documentation, ascribed by Arianne Bernal RN in my presence, and it is both accurate and complete [id number] .
[2016-12-26] MEDS: PHENYLEPHRINE DRIP 40 MG/250 ML PREMIX IV SCH (18:04)
[2016-12-26 19:56] LABS: ABG Base Excess -6.3 MMOL/L (-2.5-2.5); ABG HCO3 19.2 MMOL/L (20-26); ABG PCO2 50.4 MM HG (35-48); ABG PH 7.236 (7.35-7.45); ABG PO2 75.9 MM HG (80-95); ABG TCO2 19.7 MMOL/L (23-27); Allen Test Positive
[2016-12-27] MEDS: NOREPINEPHRINE 8 MG in SODIUM CHLORIDE 0.9% 242 ML IV SCH ×2 (00:22→09:51)
[2016-12-27] MEDS: SODIUM CHLORIDE 0.9% 1,000 ML IV SCH (00:34)
[2016-12-27] MEDS: PIPERACILLIN/TAZOBACTAM 3,375 MG in SODIUM CHLORIDE 0.9% 100 ML IV SCH ×3 (01:50→17:50)
[2016-12-27] MEDS: LACTULOSE 20 GM/30 ML UDCUP PO SCH (02:15)
[2016-12-27] MEDS: LACTULOSE 20 GM/30 ML UDCUP PER TUBE SCH ×3 (02:50→18:44)
[2016-12-27] MEDS ORDERED: LACTULOSE 160 GM/240 ML BOTTLE RECTAL SCH (03:00)
[2016-12-27 03:29] LABS: ABG Base Excess -6.2 MMOL/L (-2.5-2.5); ABG HCO3 19.3 MMOL/L (20-26); ABG Oxygen Saturation 95.6 % (95-100); ABG PCO2 58.7 MM HG (35-48); ABG PO2 85.8 MM HG (80-95); ABG TCO2 21.1 MMOL/L (23-27); Allen Test Positive
[2016-12-27 03:31] LABS: ABG PH 7.195 (7.35-7.45)
[2016-12-27 04:19] LABS: Basophils # 0.1 10*3/uL (0.0-0.2); Basophils % 0.3 % (0.0-0.8); Eosinophils % 0.1 % (0.00-10.9); Hematocrit 32.8 VOL% (42.0-52.0); Hemoglobin 10.5 GM/DL (14.0-18.0); Immature Granulocytes % 3.3 %; Immature Granulocytes Absolute 0.76 #; Lymphocytes # 0.8 10*3/uL (1.4-4.0); Lymphocytes % 3.4 % (21.2-54.2); Mean Corpuscular Hemoglobin 31 PG (27-34); Monocytes # 2.1 10*3/uL (0.11-0.8); Monocytes % 9.2 % (1.7-12.7); Neutrophils # 19.5 10*3/uL (1.4-7.4); Neutrophils % 83.7 % (38.7-73.9); Platelet Count 84 T/CUMM (130-400); Red Blood Count 3.38 MC/CUMM (3.8-5.5); Red Cell Distribution Width 14.6 % (9.3-17.3); White Blood Count 23.3 T/CUMM (4-12)
[2016-12-27 04:45] LABS: Band Neutrophils 30 % (0-10); Lymphocytes 2 % (20-55); Metamyelocytes 1 %; Segmented Neutrophils 64 % (50-85); Total Cells Counted 100
[2016-12-27 04:47] LABS: Platelet Estimate Decreased
[2016-12-27 05:11] LABS: Albumin 2.7 G/DL (3.4-5.0); Bilirubin,Total 5.1 MG/DL (0.2-1.0); Calcium 7.6 MG/DL (8.5-10.1); Osmolality,Calculated 296.7 MOS/KG (273-304); Potassium 4.2 MMOL/L (3.5-5.1); Total Protein 6.7 G/DL (6.4-8.3)
[2016-12-27 05:26] LABS: Lactic Acid 2.1 MMOL/L (0.4-2.0)
[2016-12-27] MEDS: PHENYTOIN 100 MG/2 ML VIAL IV SCH ×3 (06:35→21:32)
[2016-12-27 07:02] LABS: Calcium 7.7 MG/DL (8.5-10.1); Osmolality,Calculated 298.6 MOS/KG (273-304); Potassium 4.2 MMOL/L (3.5-5.1)
--- NOTE | 2016-12-27 07:40 | Hospitalist Progress Note ---
Assessment and Plan (1) Respiratory failure Status: Acute Assessment and plan: Patient noted to have respiratory failure with CO2 retention. There is some underlying metabolic acidosis to but patient is on normal saline this could have been contributing along with the underlying sepsis with a mild lactic acidosis but there is no anion gap on BiPAP possible underlying sleep apnea noticed some cramps on the basis on auscultation. I ordered a chest x-ray. He has cardiomegaly followed by the cardiology. Echocardiogram was planned by the cardiology I do not see the results yet. Patient will be followed by the cardiology. I will give dose of Lasix and cut on the fluid to include some bicarbonate Current Visit: Yes (2) Septic shock Status: Acute Assessment and plan: Stable still had a white count very high. Seen by surgery and feel there is no abscess likely source is cellulitis. Blood pressure is better than yesterday but still requiring pressors will be weaning down if possible Current Visit: Yes (3) Acute renal failure Status: Acute Assessment and plan: Probably prerenal as patient was hypotensive. Continue to improve Current Visit: Yes (4) Metabolic acidosis Status: Acute Assessment and plan: Noted some metabolic acidosis along with a respiratory acidosis. Will provide IV bicarb Current Visit: Yes (5) Cellulitis of right lower extremity Status: Acute Assessment and plan: On daptomycin and Zosyn CPKs little elevated but there was no baseline I will order repeat for tomorrow Current Visit: Yes (6) Elevated troponin Status: Acute Assessment and plan: Seen by cardiology and the think patient has secondary Type II NSTEMI. Current Visit: Yes (7) History of seizures Status: Acute Assessment and plan: On Dilantin. No seizures overnight reported Current Visit: Yes Hospitalist: Subjective Interval history: Mr. Rolon is a 56 year old male with history of diabetes mellitus,r obstructive sleep apnea CVA and seizure disorder presented yesterday ER with generalized weakness and hypotension. He was confused and fatigued. He was noted to have elevated troponin and EKG changes. He had no chest pain or shortness of breath. He had some subjective fever and chills. There was no fever noted in emergency department or overnight here in the ICU. He received dopamine infusion on the way to the hospital but now on phenylephrine infusion. He had it echocardiogram done by the ER physician and no pericardial effusion noted. Cardiology has seen the patient and the patient has elevated troponin due to hypotension and sepsis. Patient remained on pressors at present on Levophed 40 mics. Last night he was reported to be confused and altered ABG showed CO2 retention Dr. Campuzano seen the patient and started in BiPAP. Patient on BiPAP still not able to awake this morning on only moan on tactile stimulation. Afebrile urine output improved patient on maintenance IV fluid at 125 cc an hour. Exam - Constitutional Vitals: Period Temp Pulse Resp BP Sys/Frazier Pulse Ox Last 24 Hr 97.6 F-98.3 F 85-108 16-30 91-143/42-89 90-100 General appearance: morbidly obese, other (On BiPAP moan on tactile stimulation) - Respiratory Respiratory exam: Present: rales (Equal air entry bilaterally with rales at the bases). Absent: rhonchi - Cardiovascular Cardiovascular exam: Present: regular rate and rhythm. Absent: tachycardia - GI/Abdominal GI/Abdominal exam: Present: normal bowel sounds, soft. Absent: tenderness - Extremities Exam Extremities exam: Present: other (Redness bilateral lower extremities up to thigh does not seem to be very warm) Results - Labs CBC & BMP: 12/27/16 04:00 12/27/16 04:00 Lab Results: I have reviewed the past 24 hour labs
[2016-12-27] MEDS ORDERED: FUROSEMIDE 40 MG/4 ML VIAL IV ONE (08:00)
--- NOTE | 2016-12-27 08:21 | XRay Report ---
XR chest 1V portable Indication: Respiratory failure Comparison: Chest x-ray dated December 26, 2016 Technique: Single frontal view of the chest Findings: Continued cardiomegaly. Mildly increased bilateral perihilar opacification may reflect mildly increased pulmonary edema. Small bilateral pleural fluid suggested. Osseous and surrounding soft tissue structures appear grossly unchanged. IMPRESSION: As above. PROCEDURE INTERPRETED AT [facility]PARTMENT OF RADIOLOG[facility] Final Report Signed by: Dr Hector Dale
--- NOTE | 2016-12-27 08:25 | Pulmonology Consult Note ---
Assessment and Plan (1) History of seizures Status: Acute Assessment and plan: The patient has had a CVA and history of seizures and is on Dilantin. Current Visit: Yes (2) Acute renal failure Status: Acute Assessment and plan: Patient came in with some renal insufficiency but his creatinine is down to 1.2 now Current Visit: Yes (3) Cellulitis of right lower extremity Status: Acute Assessment and plan: Patient has edema and cellulitis of his legs Current Visit: Yes (4) Septic shock Status: Acute Assessment and plan: Patient originally presented with hypotension and some component of shock. He still has a significant acidosis. Current Visit: Yes (5) Cirrhosis Status: Acute Assessment and plan: The patient is getting more jaundiced and possibly has some hepatic encephalopathy. Current Visit: Yes (6) ANDRIA (obstructive sleep apnea) Status: Chronic Assessment and plan: The patient is on BiPAP now. Current Visit: Yes (7) Respiratory failure Status: Acute Assessment and plan: The patient's PCO2 is 58 and possibly could be a little overloaded. It is unclear if he has significant lung disease. He will continue with BiPAP for now. Current Visit: Yes History of Present Illness Chief complaint: Shortness of breath History of present illness: Mr. Rolon is a 56 year old male that came in several days ago with generalized weakness and hypotension and was felt to be septic. The patient has cellulitis of his right lower leg. He has been on pressors and antibiotics and fluids. This morning he apparently developed more shortness of breath and had to be placed on BiPAP. He has not been very responsive. He is felt to possibly have cirrhosis. He has had a history of having a CVA and seizures in the past. He apparently is not a diabetic and has not had renal insufficiency. He is jaundiced and has an elevated ammonia level. He is reasonably comfortable on BiPAP at present. Home Medications Medication Instructions Recorded Confirmed Type Donepezil [Aricept] 5 mg PO BEDTIME 12/25/16 12/25/16 History Ergocalciferol (Vitamin D2) 50,000 unit PO Q7D 12/25/16 12/25/16 History [Vitamin D2] Phenytoin ER Cap [Dilantin Cap] 200 mg PO TID 12/25/16 12/25/16 History Zinc Oxide [Zinc Oxide 40% Oint] 1 applic TOP TID 12/25/16 12/25/16 History Allergies Allergy/AdvReac Type Severity Reaction Status Date / Time No Known Allergies Allergy Verified 12/25/16 18:16 ROS unobtainable: due to mental status (He is not alert enough to give any history at present) Exam (Pulmonay) H&P - Constitutional Vitals: Period Temp Pulse Resp BP Sys/Frazier Pulse Ox Last 24 Hr 97.6 F-98.3 F 85-108 16-30 91-143/42-89 90-100 General appearance: mild distress, over weight, other (He is relatively comfortable on BiPAP) - Head Head exam: Present: normal inspection, normocephalic - Eye Eye exam: Present: EOMI, scleral icterus Pupils: Present: GAYLE - ENT ENT exam: Present: normal exam - Neck Neck exam: Present: normal inspection. Absent: lymphadenopathy, thyromegaly - Respiratory Respiratory exam: Present: decreased breath sounds, rales, rhonchi - Cardiovascular Cardiovascular exam: Present: regular rate and rhythm. Absent: gallop, systolic murmur - GI/Abdominal GI/Abdominal exam: Present: distended, hypoactive bowel sounds, soft. Absent: organomegaly, tenderness - Extremities Exam Extremities exam: Present: edema (There is brawny edema of the lower extremities ). Absent: calf tenderness - Neurological Exam Neurological exam: Present: altered (He is not responding very well at present) - Skin Skin exam: Present: warm, dry Medical,Surgical,& Family Hx - Medical History Cardio: No history of: Hypertension Neurology: History of: Cerebrovascular Accident, Seizures Endocrine: No history of: Diabetes Mellitus (NIDDM) Respiratory: History of: Obstructive Sleep Apnea No history of: COPD Other: History of: Skin Problems (cellulitis) - Surgical History Abdominal Surgeries: Surgical HX of: Hernia Repair - Family History Family History: Reports;: Family Diabetes - Social History Smoking Status: Never smoker Frequency of Alcohol Use: Frequently Type of Drug Use: None Results - Labs CBC & BMP: 12/27/16 04:00 12/27/16 04:00 - Diagnostic Findings Procedure: Chest x-ray: image reviewed by me, report reviewed by me (Chest x- ray shows cardiomegaly with possibly slight overload.)
[2016-12-27] MEDS: SODIUM BICARB INJ 100 MEQ in DEXTROSE 5% 1,000 ML IV SCH ×2 (08:34→23:11)
--- NOTE | 2016-12-27 08:35 | General Surgery Progress Note ---
Assessment and Plan (1) Cellulitis of right lower extremity Status: Acute Assessment and plan: The surgical team will see the patient as needed from here. Please call back with questions per Current Visit: Yes Subjective Patient reports: Present: afebrile. Absent: blood in stool Narrative: The patient is developing respiratory failure. Otherwise he is about the same. He is more acidotic and his WBC is about the same. Exam - Constitutional Vitals: Period Temp Pulse Resp BP Sys/Frazier Pulse Ox Last 24 Hr 97.6 F-98.3 F 85-108 16-30 91-143/42-89 90-100 General appearance: no acute distress, morbidly obese - Head Head exam: Present: normal inspection, normocephalic - Eye Eye exam: Present: EOMI Pupils: Present: GAYLE - ENT ENT exam: Present: normal exam Mouth exam: Present: normal external inspection - Neck Neck exam: Present: normal inspection, trachea midline - Respiratory Respiratory exam: Present: clear to auscultation bilaterally - GI/Abdominal GI/Abdominal exam: Present: normal bowel sounds. Absent: distended, tenderness - Extremities Exam Extremities exam: Present: other (Cellulitis is improved but still present on the right lower extremity. Left medial thigh redness is improved.) - Back Exam Back exam: Present: normal inspection - Neurological Exam Neurological exam: Present: alert, oriented X3 Speech: Present: normal - Skin Skin exam: Present: normal color, warm Results - Labs CBC & BMP: 12/27/16 04:00 12/27/16 04:00
[2016-12-27 09:08] LABS: Allen Test Positive; Pt O2 Delivery Device BIPAP
[2016-12-27 09:09] LABS: ABG Base Excess -6.4 MMOL/L (-2.5-2.5); ABG HCO3 19.2 MMOL/L (20-26); ABG Oxygen Saturation 97.7 % (95-100); ABG PCO2 62.7 MM HG (35-48); ABG TCO2 21.5 MMOL/L (23-27)
[2016-12-27 09:14] LABS: ABG PH 7.176 (7.35-7.45)
[2016-12-27] MEDS: FAMOTIDINE 20 MG/2 ML VIAL IV SCH ×2 (09:36→21:33)
[2016-12-27] MEDS: ASPIRIN EC 325 MG TABLET PO SCH (09:45)
--- NOTE | 2016-12-27 09:57 | ECHO Report ---
Micheal Rolon Exam Date: 12/26/2016 09:23 Referring Physician: Technologist: Chioma Wu Age: 56 Ht (in): 67 Wt (lb): 254 Gender: M Exam Location: [facility] Echo Indications: cardiomegaly, confusion RLE, elevated troponin, hypotension, ANDRIA, metabolic acidosis, thrombo cytopnia BP: 84 / 37 HR: 100 Rhythm: Tachycardia Technical Quality: Fair IMPRESSIONS Normal LV systolic function, ejection fraction 60-65%. Grade 1/4 diastolic dysfunction. Mild mitral regurgitation. Mild to moderate tricuspid regurgitation. Moderate to severe concentric left ventricular hypertrophy. Mild left atrial enlargement. MEASUREMENTS (Male / Female) Normal Values 2D ECHO LV Diastolic Diameter PLAX 4.9 cm 4.2 - 5.9 / 3.9 - 5.3 cm LV Systolic Diameter PLAX 2.1 cm LV Fractional Shortening PLAX 57.3 % IVS Diastolic Thickness 2.1 cm 0.6 - 1.0 / 0.6 - 0.9 cm LVPW Diastolic Thickness 1.5 cm 0.6 - 1.0 / 0.6 - 0.9 cm RV Internal Dim ED PLAX 2.7 cm Aortic Root Diameter 3.0 cm LA Systolic Diameter LX 4.8 cm 3.0 - 4.0 / 2.7 - 3.8 cm DOPPLER TR Peak Velocity 228.0 cm/s TR Peak Gradient 20.8 mmHg FINDINGS Left Ventricle Normal left ventricular cavity size. Moderate concentric left ventricular hypertrophy with diastolic dysfunction. Left ventricular ejection fraction is estimated at 60-65 %. Right Ventricle Normal right ventricular size. Right Atrium Normal right atrial size. Left Atrium Mildly enlarged. Mitral Valve Mild mitral valve sclerosis. Trace mitral valve regurgitation. Aortic Valve Mild aortic valve sclerosis without stenosis or regurgitation. Tricuspid Valve Morphologically normal tricuspid valve. [id number]-ct-ortvmzar tricuspid valve regurgitation. Tricuspid regurgitation velocities suggest a PAP of 20.8 mmHg + RAP. Pulmonic Valve Morphologically normal pulmonic valve. Pericardium No pericardial effusion. Aorta Normal size aortic root and proximal ascending aorta. Chrissy Sepulveda MD (Electronically Signed) Final Date: 27 December 2016 09:57
[2016-12-27] MEDS: ALBUTEROL/IPRATROPIUM 3 ML NEB RESP TX SCH ×2 (12:07→18:59)
--- NOTE | 2016-12-27 13:39 | Cardiology Progress Note ---
Gabe Castano Vanessa, RN, am scribing for, and in the presence of, Chrissy Sepulveda MD 13:37. Assessment and Plan - Time spent with patient Time spent with patient: Greater than 30 minutes (1) Cardiomegaly Problem details: Moderate to severe LVH, normal EF Status: Chronic Current Visit: Yes (2) Cellulitis of right lower extremity Status: Acute Assessment and plan: Defer primary management to hospital medicine. Current Visit: Yes (3) Confusion Status: Acute Current Visit: Yes (4) Elevated troponin Status: Acute Assessment and plan: Serial troponin checks have revealed downward trending troponin level. This occurred in the setting of his hypotension and profound acidemia and is likely secondary to these causes. He does not appear to be having an acute coronary syndrome. Systolic function is preserved. Current Visit: Yes (5) Hypotension Status: Acute Assessment and plan: Continues to improve since admission. SBP is 110-135 mmHg. Vasopressors have been weaned and discontinued as tolerated. Currently receiving IV Levophed 12 mcg/min and IV hydration. Hypotension most likely related to possible sepsis. Current Visit: Yes (6) Metabolic acidosis Status: Acute Assessment and plan: Defer to hospitalist management. Current Visit: Yes (7) Thrombocytopenia Status: Acute Current Visit: Yes (8) ANDRIA (obstructive sleep apnea) Status: Chronic Current Visit: Yes Cardiology - PN: Subj Interval history: Patient remains in ICU this morning under guarded observation. Overnight, BP has improved and vasopressors are being weaned as tolerated. SBP is 110-135. Levophed IV at 12 mcg/min. Increasing confusion and worsening of metabolic acidosis per ABG's yesterday evening. Patient was evaluated by Dr. Campuzano, and patient was placed on BiPap. This morning, he is somewhat less alert and does not offer as much verbal response. He does not seem to be in acute distress. Cellulitis of RLE evaluated by general surgery yesterday and no need for surgical intervention at this time. WBC remains at 23,000. Platelet count decreased to 84,000. Sodium is 146, potassium 4.2. Creatinine is improved from 1.9 to 1.2 today. Bilirubin today is 4.1. Ammonia improved from 70 to 48 today. Remains in sinus rhythm, tachycardia improved, HR is in 80's today. Exam (Progress Note) - Constitutional Vitals: Period Temp Pulse Resp BP Sys/Frazier Pulse Ox Last 24 Hr 97.6 F-98.3 F 85-108 16-30 91-143/42-89 90-100 Exam: General appearance: Overweight, on BIPAP, unresponsive - Head Head exam: Present: normal inspection, normocephalic, atraumatic. Absent: hematoma, laceration - Eye Eye exam: Absent: conjunctival injection, nystagmus, periorbital swelling, scleral icterus, laceration to eyelids Pupils: Present: PERRL. Absent: constricted, dilated, fixed, irregular, unequal - ENT ENT exam: Present: normal exam, normal external ear exam - Neck Neck exam: Present: normal inspection. Absent: lymphadenopathy, meningismus, tenderness, thyromegaly - Respiratory Respiratory exam: Present: clear to auscultation bilaterally. Absent: accessory muscle use, chest wall tenderness. Other (BiPap in use today) - Cardiovascular Cardiovascular exam: Present: regular rate and rhythm. Absent: carotid bruit, gallop, JVD, rubs - GI/Abdominal GI/Abdominal exam: Present: normal bowel sounds, soft, obese. Absent: distended , firm, guarding, hernia, mass, tenderness, rebound. - Extremities Exam Extremities exam: Present: The right lower extremity has 1+ edema. Bilateral posterior tibialis pulses are readily palpable. Absent: calf tenderness - Back Exam Back exam: Unable to examine due to patient on his back and unresponsive. - Neurological Exam Neurological exam: Present: unresponsive except to deep pain stimuli - Psychiatric Psychiatric exam: Unable to assess due to being unresponsive - Skin Skin exam: Present: normal color, warm, dry, intact. Absent: cyanosis, diaphoretic, rash, urticaria Result/EKG - Labs CBC & BMP: 12/27/16 04:00 12/27/16 04:00 Lab Results: I have reviewed the past 24 hour labs Labs: Laboratory Results - last 24 hr 12/26/16 12/27/16 12/27/16 19:40 03:03 04:00 WBC 23.3 H RBC 3.38 L Hgb 10.5 L Hct 32.8 L MCV 97.0 MCH 31 MCHC 32.0 RDW 14.6 Plt Count 84 L D MPV 10.0 Neut % (Auto) 83.7 H Lymph % (Auto) 3.4 L Winn % (Auto) 9.2 Eos % (Auto) 0.1 Baso % (Auto) 0.3 Neut # (Auto) 19.5 H Lymph # (Auto) 0.8 L Winn # (Auto) 2.1 H Eos # (Auto) 0.0 Baso # (Auto) 0.1 Total Counted 100 Immature Gran % 3.3 Nucleated RBC % 0.0 Immature Gran # 0.76 Segmented Neutrophils 64 Band Neutrophils 30 H Lymphocytes 2 L Monocytes 3 Metamyelocytes 1 Nucleated RBCs # 0.00 Platelet Estimate Decreased Morphology Comment ABG pH 7.236 L 7.195 L* ABG pCO2 50.4 H 58.7 H ABG pO2 75.9 L 85.8 ABG HCO3 19.2 L 19.3 L ABG Total CO2 19.7 L 21.1 L ABG O2 Saturation 95.0 95.6 ABG Base Excess -6.3 L -6.2 L FiO2 28.00 28.00 Sodium Potassium Chloride Carbon Dioxide Anion Gap BUN Creatinine GFR Calculation BUN/Creatinine Ratio Glucose Calculated Osmolality Lactic Acid Calcium Total Bilirubin AST ALT Alkaline Phosphatase Ammonia Total Creatine Kinase Total Protein Albumin Globulin Albumin/Globulin Ratio 12/27/16 12/27/16 12/27/16 04:00 04:00 05:00 WBC RBC Hgb Hct MCV MCH MCHC RDW Plt Count MPV Neut % (Auto) Lymph % (Auto) Winn % (Auto) Eos % (Auto) Baso % (Auto) Neut # (Auto) Lymph # (Auto) Winn # (Auto) Eos # (Auto) Baso # (Auto) Total Counted Immature Gran % Nucleated RBC % Immature Gran # Segmented Neutrophils Band Neutrophils Lymphocytes Monocytes Metamyelocytes Nucleated RBCs # Platelet Estimate Morphology Comment ABG pH ABG pCO2 ABG pO2 ABG HCO3 ABG Total CO2 ABG O2 Saturation ABG Base Excess FiO2 Sodium 145 146 H Potassium 4.2 4.2 Chloride 114 H 115 H Carbon Dioxide 24 23 Anion Gap 11.2 12.2 BUN 35 H 35 H Creatinine 1.20 1.20 GFR Calculation 88 88 BUN/Creatinine Ratio 29.00 H 29.00 H Glucose 109 H 108 H Calculated Osmolality 296.7 298.6 Lactic Acid 2.1 H Calcium 7.6 L 7.7 L Total Bilirubin 5.10 H AST 84 H ALT 42 Alkaline Phosphatase 89 Ammonia 48 H Total Creatine Kinase 375 H Total Protein 6.7 Albumin 2.7 L Globulin 4.0 H Albumin/Globulin Ratio 0.6 L - Diagnostic Findings Procedure: Chest x-ray: image reviewed by me, report reviewed by me - EKG EKG results: interpreted by me, no acute changes EKG shows: sinus rhythm (Tachycardia improved today, pulse rate is in the 80s currently.) I, Chrissy Sepulveda MD, personally performed the services described in this documentation, ascribed by Arianne Bernal RN in my presence, and it is both accurate and complete 339 .
--- NOTE | 2016-12-27 15:09 | Ultrasound Report ---
Exam: US liver Date:12/27/2016 1:44 PM Indication: Elevated total bilirubin elevated liver function test Comparison: Previous renal sonogram 12/26/2016 Findings: Liver: 18 cm. No focal abnormalities present. The hepatic and portal veins are unremarkable. Gallbladder: Normal size shape and configuration CBD: 4.3 mm Pancreas: Poorly visualized Kidneys Right kidney: 11.8 x 5.7 x 5.8 cm. No hydronephrosis perinephric fluid collections or focal mass Ascites: None Impression: 1. No focal abnormalities clearly delineated within the right upper quadrant. Ultrasound images were stored and captured PROCEDURE INTERPRETED AT [facility] DEPARTMENT OF RADIOLOGY Final Report Signed by: Dr. Caden Shell
[2016-12-27] MEDS: THIAMINE INJ 100 MG, FOLIC ACID INJ 1 MG, MULTIVITAMIN INJ 10 ML in SODIUM CHLORIDE 0.9... IV SCH (15:50)
[2016-12-27] MEDS: PHENYLEPHRINE DRIP 40 MG/250 ML PREMIX IV SCH (19:10)
[2016-12-27] MEDS: LORazepam 2 MG/1 ML VIAL IV PRN (19:16)
[2016-12-28] MEDS: LORazepam 2 MG/1 ML VIAL IV PRN (00:26)
[2016-12-28] MEDS: ALBUTEROL/IPRATROPIUM 3 ML NEB RESP TX SCH ×4 (00:41→19:12)
[2016-12-28 02:32] LABS: ABG Base Excess 1.1 MMOL/L (-2.5-2.5); ABG Oxygen Saturation 90.8 % (95-100); ABG PH 7.234 (7.35-7.45); ABG PO2 63.8 MM HG (80-95); ABG TCO2 32.3 MMOL/L (23-27); Allen Test Positive; Pt O2 Delivery Device BIPAP
[2016-12-28 02:34] LABS: ABG PCO2 72.7 MM HG (35-48)
[2016-12-28] MEDS: PIPERACILLIN/TAZOBACTAM 3,375 MG in SODIUM CHLORIDE 0.9% 100 ML IV SCH ×3 (03:07→17:57)
[2016-12-28] MEDS: LACTULOSE 20 GM/30 ML UDCUP PER TUBE SCH ×3 (03:08→18:34)
[2016-12-28 03:40] LABS: Basophils # 0.1 10*3/uL (0.0-0.2); Basophils % 0.3 % (0.0-0.8); Eosinophils # 0.1 10*3/uL (0.0-0.87); Eosinophils % 0.3 % (0.00-10.9); Hematocrit 33.1 VOL% (42.0-52.0); Hemoglobin 10.4 GM/DL (14.0-18.0); Immature Granulocytes % 0.5 %; Immature Granulocytes Absolute 0.11 #; Lymphocytes # 0.8 10*3/uL (1.4-4.0); Lymphocytes % 3.9 % (21.2-54.2); Mean Corpuscular HGB Conc 31.4 GM/DL (32-36); Mean Corpuscular Hemoglobin 31 PG (27-34); Mean Corpuscular Volume 97.9 FL (87-102); Mean Platelet Volume 10.1 FL (9.6-12.0); Monocytes # 1.5 10*3/uL (0.11-0.8); Monocytes % 7.3 % (1.7-12.7); Neutrophils # 18.1 10*3/uL (1.4-7.4); Neutrophils % 87.7 % (38.7-73.9); Platelet Count 74 T/CUMM (130-400); Red Blood Count 3.38 MC/CUMM (3.8-5.5); White Blood Count 20.6 T/CUMM (4-12)
[2016-12-28 03:47] LABS: Calcium 8.1 MG/DL (8.5-10.1); Magnesium 2.4 MG/DL (1.8-2.4); Osmolality,Calculated 298.6 MOS/KG (273-304); Potassium 3.4 MMOL/L (3.5-5.1)
[2016-12-28 04:02] LABS: Albumin 2.7 G/DL (3.4-5.0); Bilirubin,Total 4.3 MG/DL (0.2-1.0); Osmolality,Calculated 298.6 MOS/KG (273-304); Potassium 3.4 MMOL/L (3.5-5.1); Total Protein 7.6 G/DL (6.4-8.3)
[2016-12-28 04:26] LABS: Anisocytosis 1+; Band Neutrophils 25 % (0-10); Lymphocytes 2 % (20-55); Myelocytes 4 %; Segmented Neutrophils 69 % (50-85); Total Cells Counted 100
[2016-12-28 04:27] LABS: Platelet Estimate Decreased
[2016-12-28] MEDS: PHENYTOIN 100 MG/2 ML VIAL IV SCH ×3 (04:54→21:17)
--- NOTE | 2016-12-28 06:12 | Cardiology Progress Note ---
Assessment and Plan (1) Cardiomegaly Problem details: Moderate to severe LVH, normal EF Status: Chronic Assessment and plan: Current Visit: Yes (2) Cellulitis of right lower extremity Status: Acute Assessment and plan: Defer primary management to hospital medicine. Current Visit: Yes (3) Confusion Status: Acute Assessment and plan: Defer management of this to the primary service. Current Visit: Yes (4) Elevated troponin Status: Acute Assessment and plan: Serial troponin checks have revealed downward trending troponin level. This occurred in the setting of his hypotension and profound acidemia and is likely secondary to these causes. He does not appear to be having an acute coronary syndrome. Systolic function is preserved. Current Visit: Yes (5) Hypotension Status: Acute Assessment and plan: Continues to improve since admission. SBP is 110-135 mmHg. Vasopressors have been weaned and discontinued as tolerated. Currently receiving IV Levophed 12 mcg/min and IV hydration. Hypotension most likely related to possible sepsis. Current Visit: Yes (6) Metabolic acidosis Status: Acute Assessment and plan: Defer to hospitalist management. Current Visit: Yes (7) Thrombocytopenia Status: Acute Current Visit: Yes (8) ANDRIA (obstructive sleep apnea) Status: Chronic Current Visit: Yes Cardiology - PN: Subj Interval history: Overall evening was uneventful. He continues to have compromised mental status. He has been on BiPAP. Hemodynamics of normalized and he is off of pressors. He is less acidemic. However clinically, his neurologic status has not improved. Exam (Progress Note) - Constitutional Vitals: Period Temp Pulse Resp BP Sys/Frazier Pulse Ox Last 24 Hr 97.0 F-98.8 F 25-95 13-39 103-150/49-97 90-100 Exam: General appearance: Overweight, on BIPAP, unresponsive - Head Head exam: Present: normal inspection, normocephalic, atraumatic. Absent: hematoma, laceration - Eye Eye exam: Absent: conjunctival injection, nystagmus, periorbital swelling, scleral icterus, laceration to eyelids Pupils: Present: PERRL. Absent: constricted, dilated, fixed, irregular, unequal - ENT ENT exam: Present: normal exam, normal external ear exam - Neck Neck exam: Present: normal inspection. Absent: lymphadenopathy, meningismus, tenderness, thyromegaly - Respiratory Respiratory exam: Present: clear to auscultation bilaterally. Absent: accessory muscle use, chest wall tenderness. Other (BiPap in use today) - Cardiovascular Cardiovascular exam: Present: regular rate and rhythm. Absent: carotid bruit, gallop, JVD, rubs - GI/Abdominal GI/Abdominal exam: Present: normal bowel sounds, soft, obese. Absent: distended , firm, guarding, hernia, mass, tenderness, rebound. - Extremities Exam Extremities exam: Present: The right lower extremity has trace edema. Bilateral posterior tibialis pulses are readily palpable. Absent: calf tenderness - Back Exam Back exam: Unable to examine due to patient on his back and unresponsive. - Neurological Exam Neurological exam: Present: unresponsive except to deep pain stimuli - Psychiatric Psychiatric exam: Unable to assess due to being unresponsive - Skin Skin exam: Present: normal color, warm, dry, intact. Absent: cyanosis, diaphoretic, rash, urticaria Result/EKG - Labs CBC & BMP: 12/28/16 03:26 12/28/16 03:26 Lab Results: I have reviewed the past 24 hour labs Labs: Laboratory Results - last 24 hr 12/27/16 12/27/16 12/28/16 04:00 08:55 02:24 WBC RBC Hgb Hct MCV MCH MCHC RDW Plt Count MPV Neut % (Auto) Lymph % (Auto) Coffee % (Auto) Eos % (Auto) Baso % (Auto) Neut # (Auto) Lymph # (Auto) Coffee # (Auto) Eos # (Auto) Baso # (Auto) Total Counted Immature Gran % Nucleated RBC % Immature Gran # Segmented Neutrophils Band Neutrophils Lymphocytes Myelocytes Nucleated RBCs # Platelet Estimate Anisocytosis ABG pH 7.176 L* 7.234 L ABG pCO2 62.7 H 72.7 H* ABG pO2 109.0 H 63.8 L ABG HCO3 19.2 L 30.0 H ABG Total CO2 21.5 L 32.3 H ABG O2 Saturation 97.7 90.8 L ABG Base Excess -6.4 L 1.1 FiO2 32.00 32.00 Sodium 146 H Potassium 4.2 Chloride 115 H Carbon Dioxide 23 Anion Gap 12.2 BUN 35 H Creatinine 1.20 GFR Calculation 88 BUN/Creatinine Ratio 29.00 H Glucose 108 H Calculated Osmolality 298.6 Calcium 7.7 L Magnesium Total Bilirubin AST ALT Alkaline Phosphatase Total Creatine Kinase 375 H Total Protein Albumin Globulin Albumin/Globulin Ratio 12/28/16 12/28/16 12/28/16 03:26 03:26 03:26 WBC 20.6 H RBC 3.38 L Hgb 10.4 L Hct 33.1 L MCV 97.9 MCH 31 MCHC 31.4 L RDW 15.0 Plt Count 74 L MPV 10.1 Neut % (Auto) 87.7 H Lymph % (Auto) 3.9 L Coffee % (Auto) 7.3 Eos % (Auto) 0.3 Baso % (Auto) 0.3 Neut # (Auto) 18.1 H Lymph # (Auto) 0.8 L Coffee # (Auto) 1.5 H Eos # (Auto) 0.1 Baso # (Auto) 0.1 Total Counted 100 Immature Gran % 0.5 Nucleated RBC % 0.0 Immature Gran # 0.11 Segmented Neutrophils 69 Band Neutrophils 25 H Lymphocytes 2 L Myelocytes 4 Nucleated RBCs # 0.00 Platelet Estimate Decreased Anisocytosis 1+ ABG pH ABG pCO2 ABG pO2 ABG HCO3 ABG Total CO2 ABG O2 Saturation ABG Base Excess FiO2 Sodium 146 H Potassium 3.4 L Chloride 113 H Carbon Dioxide 30 Anion Gap 6.4 BUN 28 H Creatinine 1.00 GFR Calculation 110 BUN/Creatinine Ratio 28.00 H Glucose 145 H Calculated Osmolality 298.6 Calcium 8.0 L Magnesium Total Bilirubin 4.30 H AST 76 H ALT 41 Alkaline Phosphatase 114 Total Creatine Kinase 461 H D Total Protein 7.6 Albumin 2.7 L Globulin 4.9 H Albumin/Globulin Ratio 0.5 L 12/28/16 03:26 WBC RBC Hgb Hct MCV MCH MCHC RDW Plt Count MPV Neut % (Auto) Lymph % (Auto) Coffee % (Auto) Eos % (Auto) Baso % (Auto) Neut # (Auto) Lymph # (Auto) Coffee # (Auto) Eos # (Auto) Baso # (Auto) Total Counted Immature Gran % Nucleated RBC % Immature Gran # Segmented Neutrophils Band Neutrophils Lymphocytes Myelocytes Nucleated RBCs # Platelet Estimate Anisocytosis ABG pH ABG pCO2 ABG pO2 ABG HCO3 ABG Total CO2 ABG O2 Saturation ABG Base Excess FiO2 Sodium 146 H Potassium 3.4 L Chloride 113 H Carbon Dioxide 30 Anion Gap 6.4 BUN 28 H Creatinine 1.00 GFR Calculation 110 BUN/Creatinine Ratio 28.00 H Glucose 145 H Calculated Osmolality 298.6 Calcium 8.1 L Magnesium 2.4 Total Bilirubin AST ALT Alkaline Phosphatase Total Creatine Kinase Total Protein Albumin Globulin Albumin/Globulin Ratio
[2016-12-28] MEDS ORDERED: MIDAZOLAM 10 MG/2 ML VIAL ONE (06:19)
--- NOTE | 2016-12-28 06:38 | Hospitalist Progress Note ---
Assessment and Plan - Time spent with patient Time spent with patient: Less than 30 minutes (1) Septic shock Status: Acute Assessment and plan: Patient was admitted with septic shock secondary to right lower extremity cellulitis. He is improved clinically from the infectious standpoint as his vasopressors have been weaned and is currently being maintained on maintenance IV fluids and IV antibiotics. We will continue current course of treatment. Current Visit: Yes (2) Cellulitis of right lower extremity Status: Acute Assessment and plan: Cultures have been negative thus far. We will continue current IV antibiotic therapy. Current Visit: Yes (3) Respiratory failure Status: Acute Assessment and plan: Patient has acute hypercapnic respiratory failure and is currently being intubated by Dr. Ravi Lanza. Will defer vent management to the pulmonary service. Current Visit: Yes (4) Acute renal failure Status: Acute Assessment and plan: Renal function continues to improve the creatinine of 1.0 today. Attempt avoid any further nephrotoxic insults or agents. Current Visit: Yes (5) History of seizures Status: Chronic Assessment and plan: No seizure activity detected. Continue current management. Current Visit: Yes Hospitalist: Subjective Interval history: Patient is 56-year-old male who was admitted with sepsis secondary to right lower extremity cellulitis. His pressures have been weaned off and he has been improving hemodynamically however his mental status continues to decrease. He is also had CO 2 retention secondary to respiratory failure and is currently being intubated by Dr. Ravi Lanza. Exam - Constitutional Vitals: Period Temp Pulse Resp BP Sys/Frazier Pulse Ox Last 24 Hr 97.0 F-98.8 F 25-95 13-39 103-150/49-97 90-100 General appearance: other (Currently sedated in no acute distress being intubated) - Head Head exam: Present: normocephalic, atraumatic - Eye Eye exam: Present: EOMI Pupils: Present: GAYLE - Respiratory Respiratory exam: Present: rales - Cardiovascular Cardiovascular exam: Present: regular rate and rhythm - GI/Abdominal GI/Abdominal exam: Present: normal bowel sounds, soft. Absent: tenderness, rebound - Extremities Exam Extremities exam: Present: edema, other (Bilateral lower extremity erythema with minimal, no fluctuance detected). Absent: calf tenderness - Neurological Exam Neurological exam: Present: other (Currently sedated being intubated and moving all extremities) Results - Labs CBC & BMP: 12/28/16 03:26 12/28/16 03:26 Lab Results: I have reviewed the past 24 hour labs
[2016-12-28] MEDS ORDERED: ETOMIDATE 20 MG/10 ML VIAL IV ONE ×2 (06:54→07:07)
[2016-12-28] MEDS ORDERED: PROPOFOL 1,000 MG/100 ML BOTTLE IV ONE (06:55)
[2016-12-28] MEDS ORDERED: MIDAZOLAM 2 MG/2 ML VIAL IV ONE (07:06)
--- NOTE | 2016-12-28 07:07 | Event Note ---
I was called from the emergency room to room 108 in ICU for emergent airway management. Patient required intubation to secure airway. After placing the patient in proper positioning a fiberoptic videoscope was used to place a 7.5 mm ET tube. Patient had positive color change on CO2 indicator. His regular physician was at the bedside and will review his postintubation chest x-ray. Patient was premedicated with 20 mg of etomidate.
--- NOTE | 2016-12-28 07:12 | Pulmonology Progress Note ---
Pulmonary - PN: Subj Interval history: Patient is a 56-year-old that came in with septic shock and hypotension. He is felt to have a component of cirrhosis. He has cellulitis of his leg. He has a past history of having a CVA and seizures. He has been poorly responsive and having worsening respiratory insufficiency and CO2 retention. He has been on BiPAP all night and still not responding very well. He will be electively intubated because of his obtundation. His PO2 this morning was 63 with a PCO2 of 72. His blood cultures are still negative. Exam (Progress Note) - Constitutional Vitals: Period Temp Pulse Resp BP Sys/Frazier Pulse Ox Last 24 Hr 97.0 F-98.8 F 25-95 12-39 103-150/49-97 90-100 Exam: General appearance: over weight, other (He is basically unresponsive on BiPAP.) - Head Head exam: Present: normal inspection, normocephalic - Eye Eye exam: Present: EOMI, scleral icterus Pupils: Present: GAYLE - ENT ENT exam: Present: normal exam - Neck Neck exam: Present: He has a very short large neck - Respiratory Respiratory exam: Present: decreased breath sounds, rales, rhonchi - Cardiovascular Cardiovascular exam: Present: regular rate and rhythm. Absent: gallop, systolic murmur - GI/Abdominal GI/Abdominal exam: Present: distended, hypoactive bowel sounds, soft. Absent: organomegaly, tenderness - Extremities Exam Extremities exam: Present: edema (There is brawny edema of the lower extremities ). Absent: calf tenderness - Neurological Exam Neurological exam: Present: altered (He is still very poorly responsive.) - Skin Skin exam: Present: warm, dry Results - Labs CBC & BMP: 12/28/16 03:26 12/28/16 03:26 Labs: His PO2 63 with a PCO2 of 72 and a pH of 7.2 Assessment and Plan (1) History of seizures Status: Chronic Assessment and plan: The patient has had a CVA and history of seizures and is on Dilantin. Current Visit: Yes (2) Acute renal failure Status: Acute Assessment and plan: Patient came in with some renal insufficiency but his creatinine is down to 1.0 now Current Visit: Yes (3) Cellulitis of right lower extremity Status: Acute Assessment and plan: Patient has edema and cellulitis of his legs Current Visit: Yes (4) Septic shock Status: Acute Assessment and plan: Patient originally presented with hypotension and some component of shock. He still has a significant acidosis. He has both a metabolic and respiratory acidosis. His blood pressure has been more stable. Current Visit: Yes (5) Cirrhosis Status: Acute Assessment and plan: The patient is getting more jaundiced and possibly has some hepatic encephalopathy. Current Visit: Yes (6) ANDRIA (obstructive sleep apnea) Status: Chronic Assessment and plan: The patient is on BiPAP now. Current Visit: Yes (7) Respiratory failure Status: Acute Assessment and plan: The patient's PCO2 is is over 60 now and he is more lethargic. He will be intubated to protect his airway and continue support. Current Visit: Yes
[2016-12-28] MEDS: PROPOFOL 1,000 MG/100 ML BOTTLE IV SCH ×2 (07:19→12:37)
--- NOTE | 2016-12-28 07:46 | XRay Report ---
Exam: XR chest 1V portable Date: 12/28/2016 6:57 AM Indication: Intubation respiratory failure Comparison: 12/27/2016 Technical: AP portable Findings: A right-sided IJ catheter is present distances appear vena cava. Endotracheal tube is located just proximal to the josiah. Cardiomegaly is present. Patchy infiltrate present in the perihilar regions and right and left infrahilar region basilar areas. Tiny effusions present on the right. Mild gastric distention. External cardiac leads are present. Removal of nasogastric tube. Impression: 1. Endotracheal tube placed just proximal to the josiah. 2. Stable position a right IJ catheter 3. Apparent interval removal of the nasogastric tube 4. Bilateral patchy infiltrates in the perihilar regions and bases with low volume effusions 5. Mild gastric distention PROCEDURE INTERPRETED AT [facility] DEPARTMENT OF RADIOLOGY Final Report Signed by: Dr. Caden Shell
[2016-12-28 09:20] LABS: ABG Base Excess 2.2 MMOL/L (-2.5-2.5); ABG HCO3 26.4 MMOL/L (20-26); ABG Oxygen Saturation 99.9 % (95-100); ABG PCO2 43.4 MM HG (35-48); ABG PH 7.405 (7.35-7.45); ABG TCO2 24.7 MMOL/L (23-27); Allen Test Positive; Pt O2 Delivery Device Ventilator
[2016-12-28] MEDS: FAMOTIDINE 20 MG/2 ML VIAL IV SCH ×2 (11:03→23:31)
[2016-12-28] MEDS: ASPIRIN EC 325 MG TABLET PO SCH (11:14)
[2016-12-28] MEDS ORDERED: SODIUM CHLORIDE 0.9% 1,000 ML IV ONE ×3 (11:20→17:19)
[2016-12-28] MEDS: NOREPINEPHRINE 8 MG in SODIUM CHLORIDE 0.9% 242 ML IV SCH ×3 (12:39→21:23)
[2016-12-28] MEDS: SODIUM BICARB INJ 100 MEQ in DEXTROSE 5% 1,000 ML IV SCH ×3 (12:43→21:41)
[2016-12-28 13:08] LABS: Hematocrit 30.1 VOL% (42.0-52.0); Hemoglobin 9.7 GM/DL (14.0-18.0)
[2016-12-28] MEDS: THIAMINE INJ 100 MG, FOLIC ACID INJ 1 MG, MULTIVITAMIN INJ 10 ML in SODIUM CHLORIDE 0.9... IV SCH (15:35)
[2016-12-28] MEDS: MULTIVITAMIN INJ 10 ML in DEXTROSE 5% 1,000 ML IV SCH (19:21)
[2016-12-29] MEDS: ALBUTEROL/IPRATROPIUM 3 ML NEB RESP TX SCH ×4 (00:58→19:20)
[2016-12-29 03:13] LABS: ABG Base Excess 4.3 MMOL/L (-2.5-2.5); ABG HCO3 31.3 MMOL/L (20-26); ABG Oxygen Saturation 96.1 % (95-100); ABG PCO2 59.1 MM HG (35-48); ABG PH 7.342 (7.35-7.45); ABG PO2 85.3 MM HG (80-95); ABG TCO2 33.1 MMOL/L (23-27); Allen Test Positive; Pt O2 Delivery Device Ventilator
[2016-12-29] MEDS: LACTULOSE 20 GM/30 ML UDCUP PER TUBE SCH ×3 (04:06→18:39)
[2016-12-29] MEDS: PIPERACILLIN/TAZOBACTAM 3,375 MG in SODIUM CHLORIDE 0.9% 100 ML IV SCH (04:08)
[2016-12-29 04:56] LABS: Basophils % 0.2 % (0.0-0.8); Eosinophils # 0.1 10*3/uL (0.0-0.87); Eosinophils % 1.1 % (0.00-10.9); Hematocrit 30.1 VOL% (42.0-52.0); Hemoglobin 9.7 GM/DL (14.0-18.0); Immature Granulocytes % 2.1 %; Immature Granulocytes Absolute 0.19 #; Lymphocytes # 1.4 10*3/uL (1.4-4.0); Mean Corpuscular HGB Conc 32.2 GM/DL (32-36); Mean Corpuscular Hemoglobin 31 PG (27-34); Mean Corpuscular Volume 96.5 FL (87-102); Mean Platelet Volume 9.6 FL (9.6-12.0); Monocytes # 1.5 10*3/uL (0.11-0.8); Monocytes % 16.3 % (1.7-12.7); NRBC # 0.05 10*3/uL; Neutrophils # 6.1 10*3/uL (1.4-7.4); Neutrophils % 65.3 % (38.7-73.9); Red Blood Count 3.12 MC/CUMM (3.8-5.5); Red Cell Distribution Width 14.8 % (9.3-17.3); White Blood Count 9.3 T/CUMM (4-12)
[2016-12-29 05:11] LABS: Platelet Count 58 T/CUMM (130-400)
[2016-12-29 05:36] LABS: Calcium 7.3 MG/DL (8.5-10.1); Osmolality,Calculated 297.4 MOS/KG (273-304); Potassium 2.8 MMOL/L (3.5-5.1)
[2016-12-29] MEDS: PHENYTOIN 100 MG/2 ML VIAL IV SCH ×3 (05:47→21:40)
[2016-12-29] MEDS: SODIUM BICARB INJ 100 MEQ in DEXTROSE 5% 1,000 ML IV SCH (05:49)
[2016-12-29] MEDS: NOREPINEPHRINE 8 MG in SODIUM CHLORIDE 0.9% 242 ML IV SCH ×2 (05:56→15:55)
[2016-12-29 06:25] LABS: Band Neutrophils 10 % (0-10); Eosinophils 2 % (0-10); Lymphocytes 14 % (20-55); Metamyelocytes 1 %; Myelocytes 1 %; Segmented Neutrophils 64 % (50-85); Total Cells Counted 100
[2016-12-29 06:26] LABS: Platelet Estimate Decreased
--- NOTE | 2016-12-29 06:51 | Pulmonology Progress Note ---
Pulmonary - PN: Subj Interval history: Patient is a 56-year-old that came in with septic shock and hypotension. He is felt to have a component of cirrhosis. He has cellulitis of his leg. He has a past history of having a CVA and seizures. He has been poorly responsive and having worsening respiratory insufficiency and CO2 retention. He was placed on the ventilator yesterday and has fairly stiff noncompliant lungs. His blood pressure has been on the low side at times. He still requires low-dose Levophed. His urine output has been fair. He is required sedation while on the ventilator Exam (Progress Note) - Constitutional Vitals: Period Temp Pulse Resp BP Sys/Frazier Pulse Ox Last 24 Hr 97.6 F-99.6 F 57-89 10-32 78-177/43-83 98-100 Exam: General appearance: over weight, other (He is sedated and comfortable on the ventilator.) - Head Head exam: Present: normal inspection, normocephalic - Eye Eye exam: Present: EOMI, scleral icterus Pupils: Present: GAYLE - ENT ENT exam: Present: The ET tube is in good position. He does have some soft tissue swelling. - Neck Neck exam: Present: He has a very short large neck - Respiratory Respiratory exam: Present: He has fair breath sounds bilaterally with some mild rhonchi. - Cardiovascular Cardiovascular exam: Present: regular rate and rhythm. Absent: gallop, systolic murmur - GI/Abdominal GI/Abdominal exam: Present: distended, hypoactive bowel sounds, soft. Absent: organomegaly, tenderness - Extremities Exam Extremities exam: Present: edema (There is brawny edema of the lower extremities ). Absent: calf tenderness - Neurological Exam Neurological exam: Present: altered (He is arousable and require sedation.) - Skin Skin exam: Present: warm, dry Results - Labs CBC & BMP: 12/29/16 04:35 12/29/16 04:35 Labs: PO2 is 85 with a PCO2 of 59 and a pH of 7.34 - Diagnostic Findings Procedure: Chest x-ray: image reviewed by me, report reviewed by me (Chest x- ray has bilateral infiltrates.) Assessment and Plan (1) History of seizures Status: Chronic Assessment and plan: The patient has had a CVA and history of seizures and is on Dilantin. Current Visit: Yes (2) Acute renal failure Status: Acute Assessment and plan: Patient came in with some renal insufficiency but his creatinine is down to 1.0 now. Current Visit: Yes (3) Cellulitis of right lower extremity Status: Acute Assessment and plan: Patient has edema and cellulitis of his legs Current Visit: Yes (4) Septic shock Status: Acute Assessment and plan: Patient originally presented with hypotension and some component of shock. His blood pressure is a little better but he still on some Levophed. His acidosis has improved. Current Visit: Yes (5) Cirrhosis Status: Acute Assessment and plan: The patient is getting more jaundiced and possibly has some hepatic encephalopathy. Current Visit: Yes (6) ANDRIA (obstructive sleep apnea) Status: Chronic Assessment and plan: The patient is on the ventilator at present. Current Visit: Yes (7) Respiratory failure Status: Acute Assessment and plan: The patient had respiratory failure and is now on the ventilator. He still has fairly extensive infiltrates. Current Visit: Yes
[2016-12-29] MEDS ORDERED: MAGNESIUM SULF RIDER 2 GM in PREMIX 1 EACH IV PRN (07:05)
[2016-12-29] MEDS ORDERED: MAGNESIUM SULF RIDER 4 GM in PREMIX 1 EACH IV PRN (07:05)
--- NOTE | 2016-12-29 07:08 | Hospitalist Progress Note ---
Assessment and Plan - Time spent with patient Time spent with patient: Less than 30 minutes (1) Septic shock Status: Acute Assessment and plan: Patient was admitted with septic shock secondary to right lower extremity cellulitis. He is improved clinically from the infectious standpoint as his vasopressors have been weaned and is currently being maintained on maintenance IV fluids and IV antibiotics. We will continue current course of treatment. 12/29/16: Patient was intubated yesterday and did require reinitiation of vasopressor therapy. Pulmonary continues to follow. We will continue IV fluids , IV antibiotics, nutritional support. Current Visit: Yes (2) Cellulitis of right lower extremity Status: Acute Assessment and plan: Cultures have been negative thus far. We will continue current IV antibiotic therapy. Current Visit: Yes (3) Respiratory failure Status: Acute Assessment and plan: Patient has acute hypercapnic respiratory failure and is currently being intubated by Dr. Ravi Lanza. Will defer vent management to the pulmonary service. 12/29/16: Patient continues to have respiratory failure requiring ventilatory support and sedation which is being managed by pulmonary. Current Visit: Yes (4) Acute renal failure Status: Acute Assessment and plan: Renal function has essentially returned to normal. Attempt avoid any further nephrotoxic insults or agents. Current Visit: Yes (5) History of seizures Status: Chronic Assessment and plan: 12/29/16: No seizure activity detected. Continue current management. Will check Dilantin level in a.m. Current Visit: Yes (6) Hypokalemia Status: Acute Assessment and plan: Patient has been placed on potassium replacement protocol. Follow-up electrolytes in a.m. Current Visit: Yes (7) Thrombocytopenia Status: Acute Assessment and plan: Patient is thrombocytopenic with no evidence of active bleeding at this time. We will continue to follow. This is likely secondary to underlying sepsis and possible medication effect. Will review and make changes as necessary. Current Visit: Yes Hospitalist: Subjective Interval history: Mr. Rolon is a 56-year-old male who remains on the ventilator, sedated secondary to septic shock secondary to right lower extremity cellulitis. He continues to require vasopressor support blood pressures have improved and his urine output is adequate at this time. There is no evidence of active bleeding. Exam - Constitutional Vitals: Period Temp Pulse Resp BP Sys/Frazier Pulse Ox Last 24 Hr 97.6 F-99.6 F 57-84 10-24 78-177/43-83 98-100 General appearance: no acute distress, other (Sedated on the ventilator) - Head Head exam: Present: normocephalic, atraumatic, other (ET tube in place) - Eye Eye exam: Present: EOMI Pupils: Present: GAYLE - Neck Neck exam: Present: normal inspection - Respiratory Respiratory exam: Present: clear to auscultation bilaterally. Absent: rales, rhonchi, wheezes - Cardiovascular Cardiovascular exam: Present: regular rate and rhythm. Absent: gallop, JVD, systolic murmur - GI/Abdominal GI/Abdominal exam: Present: normal bowel sounds, soft. Absent: distended, tenderness, rebound - Extremities Exam Extremities exam: Present: normal capillary refill, other (Erythema and warmth greatest on the right lower extremity, SCD in place left lower extremity) - Neurological Exam Neurological exam: Present: other (Currently sedated on the vent, does withdraw to noxious stimuli) - Psychiatric Psychiatric exam: Present: other (Sedated on the ventilator) - Skin Skin exam: Present: warm, dry Results - Labs CBC & BMP: 12/29/16 04:35 12/29/16 04:35 Lab Results: I have reviewed the past 24 hour labs - Diagnostic Findings Procedure: Chest x-ray: image reviewed by me
[2016-12-29] MEDS ORDERED: POTASSIUM CHLORIDE RIDER 100 ML IV ONE (07:49)
[2016-12-29] MEDS: POTASSIUM CHLORIDE RIDER 20 MEQ in PREMIX 1 EACH IV PRN ×2 (07:59→10:01)
--- NOTE | 2016-12-29 08:40 | XRay Report ---
Exam: XR chest 1V portable Date: 12/29/2016 4:00 AM Indication: Follow-up ventilator respiratory failure Comparison: 12/28/2016 Technical: AP portable Findings: Endotracheal tube at the level just above the josiah nasogastric tube is in place. A right-sided IJ catheter is present with the distal tip superior vena cava. Patchy alveolar interstitial infiltrates are present bilaterally with low volume effusions. ASVD is present. Lateral marginal osteophytes are present. No pneumothorax present Impression: 1. Stable appearance of the life support tubing 2. Cardiomegaly and persistent diffuse alveolar interstitial infiltrates and low volume effusions PROCEDURE INTERPRETED AT [facility] DEPARTMENT OF RADIOLOGY Final Report Signed by: Dr. Caden Shell
[2016-12-29] MEDS: POTASSIUM CHLORIDE INJ 40 MEQ in SODIUM CHLORIDE 0.45% 1,000 ML IV SCH ×2 (09:24→17:27)
[2016-12-29] MEDS: AZTREONAM 2,000 MG in SODIUM CHLORIDE 0.9% 100 ML IV SCH ×2 (09:26→16:55)
[2016-12-29] MEDS: PROPOFOL 1,000 MG/100 ML BOTTLE IV SCH ×2 (10:15→18:36)
[2016-12-29] MEDS: THIAMINE 200 MG/2 ML VIAL IV SCH (10:35)
[2016-12-29] MEDS: FAMOTIDINE 20 MG/2 ML VIAL IV SCH ×2 (10:40→21:45)
[2016-12-29] MEDS: ASPIRIN EC 325 MG TABLET PO SCH (10:48)
[2016-12-29] MEDS: POTASSIUM CHLORIDE RIDER 10 MEQ in PREMIX 1 EACH IV PRN (12:01)
--- NOTE | 2016-12-29 12:13 | Cardiology Progress Note ---
Assessment and Plan (1) Cardiomegaly Problem details: Moderate to severe LVH, normal EF Status: Chronic Assessment and plan: Current Visit: Yes (2) Cellulitis of right lower extremity Status: Acute Assessment and plan: Defer primary management to hospital medicine. Current Visit: Yes (3) Elevated troponin Status: Acute Assessment and plan: Serial troponin checks have revealed downward trending troponin level. This occurred in the setting of his hypotension and profound acidemia and is likely secondary to these causes. He does not appear to be having an acute coronary syndrome. Systolic function is preserved. Current Visit: Yes (4) Confusion Status: Acute Assessment and plan: Defer management of this to the primary service. Current Visit: Yes (5) Hypotension Status: Acute Assessment and plan: Hypotension most likely related to possible sepsis. Current Visit: Yes (6) Metabolic acidosis Status: Acute Assessment and plan: Defer to hospitalist management. The patient now also has a respiratory component. Current Visit: Yes (7) Thrombocytopenia Status: Acute Assessment and plan: Likely medication induced-hospitalist service is managing. Current Visit: Yes (8) ANDRIA (obstructive sleep apnea) Status: Chronic Current Visit: Yes Cardiology - PN: Subj Interval history: This patient has no cardiac history, and was admitted to the hospital with hypotension and a sepsis-like picture. He had acute renal injury. Cardiac biomarkers were elevated, suspected to be secondary to his hypotension. He has also had a profound metabolic acidosis. His mental status has declined during this admission despite treatment of his sepsis, and some improvement of his acidemia. He has also developed a thrombocytopenia. Overall evening was uneventful. He continues to require pressors, and ventilatory support. His neurologic status has not recovered. Exam (Progress Note) - Constitutional Vitals: Period Temp Pulse Resp BP Sys/Frazire Pulse Ox Last 24 Hr 97.6 F-99.6 F 57-81 10-18 78-177/46-83 98-100 Exam: General appearance: Obese, no acute distress, intubated, not spontaneously arousable during the exam. - Head Head exam: Present: normocephalic, atraumatic,. Absent: hematoma, laceration - Eye Eye exam: Absent: conjunctival injection, nystagmus, periorbital swelling, scleral icterus, laceration to eyelids Pupils: Present: OLAMIDE. Absent: constricted, dilated, fixed, irregular, unequal - ENT ENT exam: Present: normal exam, normal external ear exam - Neck Neck exam: Present: normal inspection. Absent: lymphadenopathy, meningismus, tenderness, thyromegaly - Respiratory Respiratory exam: Present: clear to auscultation bilaterally anteriorly, there is normal rise with ventilated breaths. Absent: accessory muscle use, chest wall tenderness - Cardiovascular Cardiovascular exam: Present: regular rate and rhythm. Absent: carotid bruit, gallop, JVD, rubs - GI/Abdominal GI/Abdominal exam: Present: normal bowel sounds. Absent: distended, firm, guarding, hernia, mass, tenderness, rebound, soft - Extremities Exam Extremities exam: Present: Trace to 1+ right lower extremity edema, normal capillary refill. Absent: calf tenderness - Back Exam Back exam: Unable to assess due to patient being on the ventilator - Neurological Exam Neurological exam: Unable to fully assess due to patient being on the ventilator. She does appear to move all 4 extremities. - Psychiatric Psychiatric exam: Unable to assess due to patient being on the ventilator. - Skin Skin exam: Present: normal color, warm, dry, intact. Absent: cyanosis, diaphoretic, rash, urticaria Result/EKG - Labs CBC & BMP: 12/29/16 04:35 12/29/16 04:35 Lab Results: I have reviewed the past 24 hour labs Labs: Laboratory Results - last 24 hr 12/28/16 12/28/16 12/29/16 12:52 12:59 02:58 WBC RBC Hgb 9.7 L Hct 30.1 L MCV MCH MCHC RDW Plt Count MPV Neut % (Auto) Lymph % (Auto) [place] % (Auto) Eos % (Auto) Baso % (Auto) Neut # (Auto) Lymph # (Auto) [place] # (Auto) Eos # (Auto) Baso # (Auto) Total Counted Immature Gran % Nucleated RBC % Immature Gran # Segmented Neutrophils Band Neutrophils Lymphocytes Monocytes Eosinophils Metamyelocytes Myelocytes Nucleated RBCs # Platelet Estimate Pappenheimer Bodies ABG pH 7.342 L ABG pCO2 59.1 H ABG pO2 85.3 ABG HCO3 31.3 H ABG Total CO2 33.1 H ABG O2 Saturation 96.1 ABG Base Excess 4.3 H FiO2 50.00 Sodium Potassium Chloride Carbon Dioxide Anion Gap BUN Creatinine GFR Calculation BUN/Creatinine Ratio Glucose POC Glucose 135 H Calculated Osmolality Calcium 12/29/16 12/29/16 04:35 04:35 WBC 9.3 D RBC 3.12 L Hgb 9.7 L Hct 30.1 L MCV 96.5 MCH 31 MCHC 32.2 RDW 14.8 Plt Count 58 L D MPV 9.6 Neut % (Auto) 65.3 Lymph % (Auto) 15.0 L [place] % (Auto) 16.3 H Eos % (Auto) 1.1 Baso % (Auto) 0.2 Neut # (Auto) 6.1 Lymph # (Auto) 1.4 [place] # (Auto) 1.5 H Eos # (Auto) 0.1 Baso # (Auto) 0.0 Total Counted 100 Immature Gran % 2.1 Nucleated RBC % 0.5 Immature Gran # 0.19 Segmented Neutrophils 64 Band Neutrophils 10 Lymphocytes 14 L Monocytes 8 Eosinophils 2 Metamyelocytes 1 Myelocytes 1 Nucleated RBCs # 0.05 Platelet Estimate Decreased 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
[2016-12-29] MEDS: MULTIVITAMIN INJ 10 ML in DEXTROSE 5% 1,000 ML IV SCH (18:25)
[2016-12-30] MEDS: PROPOFOL 1,000 MG/100 ML BOTTLE IV SCH ×3 (00:59→18:38)
[2016-12-30] MEDS: ALBUTEROL/IPRATROPIUM 3 ML NEB RESP TX SCH ×4 (01:20→18:47)
[2016-12-30] MEDS: AZTREONAM 2,000 MG in SODIUM CHLORIDE 0.9% 100 ML IV SCH ×3 (01:40→17:24)
[2016-12-30] MEDS: POTASSIUM CHLORIDE INJ 40 MEQ in SODIUM CHLORIDE 0.45% 1,000 ML IV SCH (01:40)
[2016-12-30] MEDS: LACTULOSE 20 GM/30 ML UDCUP PER TUBE SCH ×3 (02:39→18:37)
[2016-12-30 03:19] LABS: ABG HCO3 25.3 MMOL/L (20-26); ABG Oxygen Saturation 94.5 % (95-100); ABG PCO2 38.7 MM HG (35-48); ABG PH 7.424 (7.35-7.45); ABG PO2 66.6 MM HG (80-95); ABG TCO2 22.9 MMOL/L (23-27); Allen Test Positive; Pt O2 Delivery Device Ventilator
[2016-12-30 04:05] LABS: Basophils % 0.3 % (0.0-0.8); Eosinophils # 0.3 10*3/uL (0.0-0.87); Eosinophils % 2.5 % (0.00-10.9); Hematocrit 31.3 VOL% (42.0-52.0); Hemoglobin 10.3 GM/DL (14.0-18.0); Immature Granulocytes % 5.6 %; Immature Granulocytes Absolute 0.62 #; Lymphocytes % 9.5 % (21.2-54.2); Mean Corpuscular HGB Conc 32.9 GM/DL (32-36); Mean Corpuscular Hemoglobin 31 PG (27-34); Mean Corpuscular Volume 93.7 FL (87-102); Mean Platelet Volume 10.6 FL (9.6-12.0); Monocytes # 1.5 10*3/uL (0.11-0.8); Monocytes % 13.9 % (1.7-12.7); NRBC # 0.05 10*3/uL; Neutrophils # 7.5 10*3/uL (1.4-7.4); Neutrophils % 68.2 % (38.7-73.9); Platelet Count 70 T/CUMM (130-400); Red Blood Count 3.34 MC/CUMM (3.8-5.5); Red Cell Distribution Width 14.9 % (9.3-17.3)
[2016-12-30 04:58] LABS: Calcium 7.4 MG/DL (8.5-10.1); Magnesium 1.9 MG/DL (1.8-2.4); Osmolality,Calculated 288.1 MOS/KG (273-304); Potassium 3.6 MMOL/L (3.5-5.1)
[2016-12-30 05:08] LABS: Band Neutrophils 5 % (0-10); Eosinophils 2 % (0-10); Lymphocytes 7 % (20-55); Metamyelocytes 2 %; Segmented Neutrophils 71 % (50-85); Total Cells Counted 100
[2016-12-30 05:09] LABS: Hypochromasia Slight; Platelet Estimate Decreased
[2016-12-30] MEDS: PHENYTOIN 100 MG/2 ML VIAL IV SCH ×3 (05:48→21:35)
[2016-12-30] MEDS: NOREPINEPHRINE 8 MG in SODIUM CHLORIDE 0.9% 242 ML IV SCH ×2 (05:48→21:34)
[2016-12-30] MEDS: POTASSIUM CHLORIDE RIDER 20 MEQ in PREMIX 1 EACH IV PRN (05:52)
--- NOTE | 2016-12-30 07:23 | Cardiology Progress Note ---
Assessment and Plan (1) Cardiomegaly Problem details: Moderate to severe LVH, normal EF Status: Chronic Assessment and plan: Moderate to severe LVH, normal EF Current Visit: Yes (2) Elevated troponin Status: Acute Assessment and plan: Serial troponin checks have revealed downward trending troponin level. This occurred in the setting of his hypotension and profound acidemia and is likely secondary to these causes. He does not appear to be having an acute coronary syndrome. Systolic function is preserved. Current Visit: Yes (3) Cellulitis of right lower extremity Status: Acute Assessment and plan: Defer primary management to hospital medicine. Current Visit: Yes (4) Confusion Status: Acute Assessment and plan: Unable to assess patient's neuro status due to mechanical ventilation. Defer management of this to the primary service. Current Visit: Yes (5) Hypotension Status: Acute Assessment and plan: Hypotension most likely related to possible sepsis. Continue current plan of care with vasopressors. Current Visit: Yes (6) Metabolic acidosis Status: Acute Assessment and plan: Defer to hospitalist management. The patient now also has a respiratory component. Current Visit: Yes (7) Thrombocytopenia Status: Acute Assessment and plan: Likely medication induced-hospitalist service is managing. This is improved slightly overnight. Current Visit: Yes (8) ANDRIA (obstructive sleep apnea) Status: Chronic Current Visit: Yes Cardiology - PN: Subj Interval history: This patient has no cardiac history, and was admitted to the hospital with hypotension and a sepsis-like picture. He had acute renal injury. Cardiac biomarkers were elevated, suspected to be secondary to his hypotension. He has also had a profound metabolic acidosis. His mental status has declined during this admission despite treatment of his sepsis, and some improvement of his acidemia. He has also developed a thrombocytopenia. He required mechanical ventilation December 28. Patient was seen and examined in the ICU. He remains sedated and ventilated and currently requiring vasopressors. Vital signs are stable with systolic blood pressure ranging between 105-120. He is currently normal sinus rhythm without any overt arrhythmias or ectopy noted overnight. Labs have been reviewed. Electrolytes are stable. Platelet count has trended up overnight from 58-70. Continue to wean patient from ventilator as tolerates. Exam (Progress Note) - Constitutional Vitals: Period Temp Pulse Resp BP Sys/Frazier Pulse Ox Last 24 Hr 99.4 F-101.4 F 69-96 12-35 87-171/40-85 93-100 Exam: General appearance: Obese, no acute distress, intubated, not spontaneously arousable during the exam. - Head Head exam: Present: normocephalic, atraumatic,. Absent: hematoma, laceration - Eye Eye exam: Absent: conjunctival injection, nystagmus, periorbital swelling, scleral icterus, laceration to eyelids Pupils: Present: OLAMIDE. Absent: constricted, dilated, fixed, irregular, unequal - ENT ENT exam: Present: normal exam, normal external ear exam - Neck Neck exam: Present: normal inspection. Absent: lymphadenopathy, meningismus, tenderness, thyromegaly - Respiratory Respiratory exam: Present: clear to auscultation bilaterally anteriorly, there is normal rise with ventilated breaths. Absent: accessory muscle use, chest wall tenderness - Cardiovascular Cardiovascular exam: Present: regular rate and rhythm. Absent: carotid bruit, gallop, JVD, rubs - GI/Abdominal GI/Abdominal exam: Present: normal bowel sounds. Absent: distended, firm, guarding, hernia, mass, tenderness, rebound, soft - Extremities Exam Extremities exam: Present: Trace to 1+ right lower extremity edema, normal capillary refill. Absent: calf tenderness - Back Exam Back exam: Unable to assess due to patient being on the ventilator - Neurological Exam Neurological exam: Unable to fully assess due to patient being on the ventilator. She does appear to move all 4 extremities. - Psychiatric Psychiatric exam: Unable to assess due to patient being on the ventilator. - Skin Skin exam: Present: normal color, warm, dry, intact. Absent: cyanosis, diaphoretic, rash, urticaria Result/EKG - Labs CBC & BMP: 12/30/16 03:59 12/30/16 03:59 Lab Results: I have reviewed the past 24 hour labs Labs: Laboratory Results - last 24 hr 12/30/16 12/30/16 12/30/16 03:10 03:59 03:59 WBC 11.0 RBC 3.34 L Hgb 10.3 L Hct 31.3 L MCV 93.7 MCH 31 MCHC 32.9 RDW 14.9 Plt Count 70 L D MPV 10.6 Neut % (Auto) 68.2 Lymph % (Auto) 9.5 L [place] % (Auto) 13.9 H Eos % (Auto) 2.5 Baso % (Auto) 0.3 Neut # (Auto) 7.5 H Lymph # (Auto) 1.0 L [place] # (Auto) 1.5 H Eos # (Auto) 0.3 Baso # (Auto) 0.0 Total Counted 100 Immature Gran % 5.6 Nucleated RBC % 0.5 Immature Gran # 0.62 Segmented Neutrophils 71 Band Neutrophils 5 Lymphocytes 7 L Monocytes 13 Eosinophils 2 Metamyelocytes 2 Nucleated RBCs # 0.05 Platelet Estimate Decreased Hypochromasia Slight ABG pH 7.424 ABG pCO2 38.7 ABG pO2 66.6 L ABG HCO3 25.3 ABG Total CO2 22.9 L ABG O2 Saturation 94.5 L ABG Base Excess 1.0 FiO2 50.00 Sodium 142 Potassium 3.6 Chloride 109 H Carbon Dioxide 26 Anion Gap 10.6 BUN 25 H Creatinine 1.00 GFR Calculation 115 BUN/Creatinine Ratio 25.00 H Glucose 137 H Calculated Osmolality 288.1 Calcium 7.4 L Magnesium 1.9 Phenytoin 12/30/16 03:59 WBC RBC Hgb Hct MCV MCH MCHC RDW Plt Count MPV Neut % (Auto) Lymph % (Auto) [place] % (Auto) Eos % (Auto) Baso % (Auto) Neut # (Auto) Lymph # (Auto) [place] # (Auto) Eos # (Auto) Baso # (Auto) Total Counted Immature Gran % Nucleated RBC % Immature Gran # Segmented Neutrophils Band Neutrophils Lymphocytes Monocytes Eosinophils Metamyelocytes Nucleated RBCs # Platelet Estimate Hypochromasia ABG pH ABG pCO2 ABG pO2 ABG HCO3 ABG Total CO2 ABG O2 Saturation ABG Base Excess FiO2 Sodium Potassium Chloride Carbon Dioxide Anion Gap BUN Creatinine GFR Calculation BUN/Creatinine Ratio Glucose Calculated Osmolality Calcium Magnesium Phenytoin 9.1 L
--- NOTE | 2016-12-30 07:23 | Cardiology Progress Note ---
Assessment and Plan (1) Septic shock Status: Acute Assessment and plan: 56y araceli HERNANDEZ presented with septic shock, due to lower extremity cellulitis. Cardiac biomarkers suggestive of myocardial injury, without ischemic EKG changes. Initially, had prolonged QTC, resolved with improved metabolic status. No malignant arrhythmia so far. Obstructive sleep apnea, morbid obesity, alcohol abuse, seizures, CRISTOPHER resolved, thrombocytopenia, anemia. -Cardiac injury. Doubt ACS. LEF preserved. He had severe metabolic derangement and hypotension. Hemodynamics improved. He will need ischemic evaluation, once recovers from acute issues. -Continue aspirin. When hemodynamically stable, will start beta-corby. I would hold off statin due to his comorbidities. -Recheck ECG. Continue to monitor and replete electrolytes, avoid QTC prolonging agents. Current Visit: Yes (2) Hypotension Status: Acute Current Visit: Yes (3) Confusion Status: Acute Current Visit: Yes (4) History of seizures Status: Chronic Current Visit: Yes (5) Cirrhosis Status: Acute Current Visit: Yes (6) ANDRIA (obstructive sleep apnea) Status: Chronic Current Visit: Yes (7) Elevated troponin Status: Acute Current Visit: Yes (8) Respiratory failure Status: Acute Current Visit: Yes Cardiology - PN: Subj Interval history: He was intubated for respiratory insufficiency. Mental status remains poor. Blood pressure stable, on minimal dose of Levophed. WBC decreased. Exam (Progress Note) - Constitutional Vitals: Period Temp Pulse Resp BP Sys/Frazier Pulse Ox Last 24 Hr 99.4 F-101.4 F 69-96 12-35 87-171/40-85 93-100 General appearance: no acute distress, morbidly obese - Head Head exam: Present: normal inspection - Eye Eye exam: Absent: periorbital swelling - ENT ENT exam: Present: normal external ear exam - Neck Neck exam: Present: other (Very thick neck) - Respiratory Respiratory exam: Present: decreased breath sounds - Cardiovascular Cardiovascular exam: Present: regular rate and rhythm - GI/Abdominal GI/Abdominal exam: Present: hypoactive bowel sounds - Extremities Exam Extremities exam: Present: edema (3+) - Neurological Exam Neurological exam: Present: altered, other (Unresponsive) - Skin Skin exam: Present: normal color, warm. Absent: cyanosis Result/EKG - Labs CBC & BMP: 12/30/16 03:59 12/30/16 03:59 Lab Results: I have reviewed the past 24 hour labs Labs: Laboratory Results - last 24 hr 12/30/16 12/30/16 12/30/16 03:10 03:59 03:59 WBC 11.0 RBC 3.34 L Hgb 10.3 L Hct 31.3 L MCV 93.7 MCH 31 MCHC 32.9 RDW 14.9 Plt Count 70 L D MPV 10.6 Neut % (Auto) 68.2 Lymph % (Auto) 9.5 L [place] % (Auto) 13.9 H Eos % (Auto) 2.5 Baso % (Auto) 0.3 Neut # (Auto) 7.5 H Lymph # (Auto) 1.0 L [place] # (Auto) 1.5 H Eos # (Auto) 0.3 Baso # (Auto) 0.0 Total Counted 100 Immature Gran % 5.6 Nucleated RBC % 0.5 Immature Gran # 0.62 Segmented Neutrophils 71 Band Neutrophils 5 Lymphocytes 7 L Monocytes 13 Eosinophils 2 Metamyelocytes 2 Nucleated RBCs # 0.05 Platelet Estimate Decreased Hypochromasia Slight ABG pH 7.424 ABG pCO2 38.7 ABG pO2 66.6 L ABG HCO3 25.3 ABG Total CO2 22.9 L ABG O2 Saturation 94.5 L ABG Base Excess 1.0 FiO2 50.00 Sodium 142 Potassium 3.6 Chloride 109 H Carbon Dioxide 26 Anion Gap 10.6 BUN 25 H Creatinine 1.00 GFR Calculation 115 BUN/Creatinine Ratio 25.00 H Glucose 137 H Calculated Osmolality 288.1 Calcium 7.4 L Magnesium 1.9 Phenytoin 12/30/16 03:59 WBC RBC Hgb Hct MCV MCH MCHC RDW Plt Count MPV Neut % (Auto) Lymph % (Auto) [place] % (Auto) Eos % (Auto) Baso % (Auto) Neut # (Auto) Lymph # (Auto) [place] # (Auto) Eos # (Auto) Baso # (Auto) Total Counted Immature Gran % Nucleated RBC % Immature Gran # Segmented Neutrophils Band Neutrophils Lymphocytes Monocytes Eosinophils Metamyelocytes Nucleated RBCs # Platelet Estimate Hypochromasia ABG pH ABG pCO2 ABG pO2 ABG HCO3 ABG Total CO2 ABG O2 Saturation ABG Base Excess FiO2 Sodium Potassium Chloride Carbon Dioxide Anion Gap BUN Creatinine GFR Calculation BUN/Creatinine Ratio Glucose Calculated Osmolality Calcium Magnesium Phenytoin 9.1 L
--- NOTE | 2016-12-30 07:39 | XRay Report ---
Referring Physician: Isidro Lanza MD Exam: XR chest 1V portable Date: December 30, 2016 at 3:04 AM Reason: Shortness of breath Comparison: Chest one view portable December 29, 2016 Findings: An endotracheal tube is again in place with its distal tip just above the josiah. A right-sided central venous catheter and feeding tube are also again in place. The heart is stable in size. There are patchy opacities throughout both lungs. This could represent pulmonary edema and/or pneumonia. No pneumothorax is identified, but there may be minimal bilateral pleural fluid. The osseous structures appear stable. Impression: There is slight increased opacification of the left lung. The study is otherwise similar to before. PROCEDURE INTERPRETED AT [facility] DEPARTMENT OF RADIOLOGY Final Report Signed by: Dr. Beti Blair
--- NOTE | 2016-12-30 07:53 | Pulmonology Progress Note ---
Pulmonary - PN: Subj Interval history: Patient is a 56-year-old that came in with septic shock and hypotension. He is felt to have a component of cirrhosis. He has cellulitis of his leg. He has a past history of having a CVA and seizures. He has been poorly responsive and having worsening respiratory insufficiency and CO2 retention. He is not on any pressors anymore but he has been getting a lot of fluids. His chest x-ray looks much worse. His weight is reportedly up 16 kg. Will try to diurese a little Exam (Progress Note) - Constitutional Vitals: Period Temp Pulse Resp BP Sys/Frazier Pulse Ox Last 24 Hr 99.4 F-101.4 F 69-96 12-35 87-171/40-85 93-100 Exam: General appearance: over weight, other (He is sedated and comfortable on the ventilator. He does look edematous.) - Head Head exam: Present: normal inspection, normocephalic - Eye Eye exam: Present: EOMI, scleral icterus Pupils: Present: GAYLE - ENT ENT exam: Present: The ET tube is in good position. He does have some soft tissue swelling. - Neck Neck exam: Present: He has a very short large neck - Respiratory Respiratory exam: Present: He has fair breath sounds bilaterally and he does have coarse breath sounds with some rhonchi present. - Cardiovascular Cardiovascular exam: Present: regular rate and rhythm. Absent: gallop, systolic murmur - GI/Abdominal GI/Abdominal exam: Present: distended, normal bowel sounds, soft. He has a BMS system in place. Absent: organomegaly, tenderness - Extremities Exam Extremities exam: Present: edema (There is brawny edema of the lower extremities ). Absent: calf tenderness - Neurological Exam Neurological exam: Present: altered (He is arousable and require sedation.) - Skin Skin exam: Present: warm, dry Results - Labs CBC & BMP: 12/30/16 03:59 12/30/16 03:59 Labs: PO2 66 with a PCO2 38 and a pH of 7.42 - Diagnostic Findings Procedure: Chest x-ray: image reviewed by me, report reviewed by me (Chest x- ray showed bilateral infiltrates) Assessment and Plan (1) History of seizures Status: Chronic Assessment and plan: The patient has had a CVA and history of seizures and is on Dilantin. Current Visit: Yes (2) Acute renal failure Status: Resolved Assessment and plan: Patient came in with some renal insufficiency but his creatinine is down to 1.0 now. He has good urine output now. Current Visit: Yes (3) Cellulitis of right lower extremity Status: Acute Assessment and plan: Patient has edema and cellulitis of his legs Current Visit: Yes (4) Septic shock Status: Acute Assessment and plan: Patient originally presented with hypotension and some component of shock. He is off pressors now and his blood pressure is better. Current Visit: Yes (5) Cirrhosis Status: Acute Assessment and plan: The patient is getting more jaundiced and possibly has some hepatic encephalopathy. Ammonia level is down. Current Visit: Yes (6) ANDRIA (obstructive sleep apnea) Status: Chronic Assessment and plan: The patient is on the ventilator at present. Current Visit: Yes (7) Respiratory failure Status: Acute Assessment and plan: The patient had respiratory failure and is now on the ventilator. His chest x- ray shows diffuse infiltrates probably some volume overload. His oxygenation is not the greatest. We will continue ventilatory support. Current Visit: Yes
[2016-12-30] MEDS ORDERED: FUROSEMIDE 40 MG/4 ML VIAL IV ONE ×2 (07:58→16:49)
--- NOTE | 2016-12-30 08:20 | Hospitalist Progress Note ---
Assessment and Plan (1) Respiratory failure Status: Acute Assessment and plan: The patient is admitted to the hospital with respiratory failure. The patient' s pulmonary edema worsened due to fluid resuscitation he is now requiring mechanical ventilation. The patient's infection is improving with treatment including IV antibiotics. We are going to attempt some diuresis today in order to improve gas exchange and pulmonary edema. We will replete potassium and recheck electrolytes in the morning. Current Visit: Yes Qualifiers: Chronicity: acute on chronic Respiratory failure complication: hypoxia and hypercapnia Qualified Code(s): J96.21 - Acute and chronic respiratory failure with hypoxia; J96.22 - Acute and chronic respiratory failure with hypercapnia (2) Hypotension Status: Acute Current Visit: Yes (3) History of seizures Status: Chronic Current Visit: Yes (4) Anasarca associated with disorder of kidney Status: Acute Current Visit: Yes (5) Cellulitis of right lower extremity Status: Acute Current Visit: Yes (6) Septic shock Status: Acute Current Visit: Yes Hospitalist: Subjective Interval history: Mr. Rolon is a 56-year-old male who remains on the ventilator, sedated secondary to septic shock secondary to right lower extremity cellulitis. He continues to require vasopressor support blood pressures have improved and his urine output is adequate at this time. There is no evidence of active bleeding. The patient has developed hypovolemia with pulmonary edema due to fluid resuscitation. We are going to start tube feedings today and reduce IV fluid rate. The patient remains on pressor. Exam - Constitutional Vitals: Period Temp Pulse Resp BP Sys/Frazier Pulse Ox Last 24 Hr 99.4 F-100.8 F 69-96 12-35 87-171/40-85 93-100 Exam: Constitutional System: No distress. No tremulousness. The patient is orally intubated and mechanically ventilated. He is sedated with Diprivan Head: Normocephalic, atraumatic. Ears, Nose and Throat System: No evidence of Otitis or Mastoiditis. No epistaxis or discharge Eyes System: Pupils equal, round, and reactive. Extraocular muscles intact. Neck: Supple, without adenopathy, 2+ jugular venous distention. No thyromegaly , neck mass, or prior surgery apparent. Respiratory System: Chest rales in dependent areas to auscultation. Cardiovascular System: Heart with regular rate and rhythm. No murmur. GI System: Abdomen obese, soft, nontender. Hypo-active bowel sounds present. Musculoskeletal System: limbs with no pedal edema. Full distal pulses. Neurological System: Exam not possible due to sedation Results - Labs CBC & BMP: 12/30/16 03:59 12/30/16 03:59 Lab Results: I have reviewed the past 24 hour labs
[2016-12-30] MEDS: FAMOTIDINE 20 MG/2 ML VIAL IV SCH ×2 (09:45→21:42)
[2016-12-30] MEDS: THIAMINE 200 MG/2 ML VIAL IV SCH (09:48)
[2016-12-30] MEDS: POTASSIUM CHLORIDE 20 MEQ/15 ML UDCUP PER TUBE SCH ×3 (09:49→21:33)
[2016-12-30] MEDS: ASPIRIN EC 325 MG TABLET PO SCH (09:49)
--- NOTE | 2016-12-30 09:59 | EKG Report ---
Stationary ECG Study [facility] Test Date: 12/30/2016 9:59:33 AM Pat Name: DANNI DOWELL Department: Room: 108 Gender: M Headrig Sawyer: [place] : 1960 Requested by: Epifanio Campos Order Number: [id number] Reading MD: GARRET WEEMS Intervals [place] Rate: 83 P: 25 RI: 147 QRS: 38 QRSD: 105 T: 31 QT: 373 QTc: 413 Interpretive Statements SINUS RHYTHM at 83 BPM POSSIBLE LATERAL MYOCARDIAL INFARCTION, PROBABLY OLD NST Electronically Signed On 12-31-16 13:16:59 CDT by GARRET WEEMS [email or web address]
[2016-12-30] MEDS ORDERED: GLUCAGON 1 MG VIAL IM PRN (12:22)
[2016-12-30] MEDS ORDERED: DEXTROSE 50% 25 GM/50 ML VIAL IV PRN (12:22)
[2016-12-30] MEDS: LORazepam 2 MG/1 ML VIAL IV PRN ×2 (13:38→18:39)
[2016-12-30] MEDS: DESITIN 4OZ/NYSTATIN 15 GRAM MIXTURE PASTE TOP SCH ×2 (17:24→21:34)
[2016-12-30] MEDS: MULTIVITAMIN INJ 10 ML in DEXTROSE 5% 1,000 ML IV SCH (18:37)
[2016-12-30] MEDS: INSULIN REGULAR 100 UNIT/ML SUBCUT SCH (19:16)
[2016-12-31] MEDS: INSULIN REGULAR 100 UNIT/ML SUBCUT SCH ×4 (00:28→18:54)
[2016-12-31] MEDS: AZTREONAM 2,000 MG in SODIUM CHLORIDE 0.9% 100 ML IV SCH ×3 (00:33→17:57)
[2016-12-31] MEDS: ALBUTEROL/IPRATROPIUM 3 ML NEB RESP TX SCH ×4 (01:22→19:27)
[2016-12-31 03:42] LABS: ABG Base Excess -0.4 MMOL/L (-2.5-2.5); ABG HCO3 26.5 MMOL/L (20-26); ABG Oxygen Saturation 93.5 % (95-100); ABG PCO2 53.8 MM HG (35-48); ABG PO2 70.3 MM HG (80-95); ABG TCO2 28.1 MMOL/L (23-27); Allen Test Positive; Pt O2 Delivery Device Ventilator
[2016-12-31 04:19] LABS: Basophils # 0.1 10*3/uL (0.0-0.2); Basophils % 0.3 % (0.0-0.8); Eosinophils # 0.5 10*3/uL (0.0-0.87); Eosinophils % 3.2 % (0.00-10.9); Hematocrit 32.9 VOL% (42.0-52.0); Hemoglobin 10.3 GM/DL (14.0-18.0); Immature Granulocytes Absolute 0.46 #; Lymphocytes # 1.1 10*3/uL (1.4-4.0); Lymphocytes % 6.9 % (21.2-54.2); Mean Corpuscular HGB Conc 31.3 GM/DL (32-36); Mean Corpuscular Hemoglobin 31 PG (27-34); Mean Corpuscular Volume 97.3 FL (87-102); Mean Platelet Volume 10.6 FL (9.6-12.0); Monocytes # 1.2 10*3/uL (0.11-0.8); NRBC # 0.03 10*3/uL; Neutrophils # 12.2 10*3/uL (1.4-7.4); Neutrophils % 78.6 % (38.7-73.9); Platelet Count 79 T/CUMM (130-400); Red Blood Count 3.38 MC/CUMM (3.8-5.5); Red Cell Distribution Width 15.3 % (9.3-17.3); White Blood Count 15.5 T/CUMM (4-12)
[2016-12-31 05:00] LABS: Calcium 7.6 MG/DL (8.5-10.1); Magnesium 1.7 MG/DL (1.8-2.4); Potassium 3.9 MMOL/L (3.5-5.1)
[2016-12-31 05:05] LABS: Prealbumin < 3.0 MG/DL (20-40)
[2016-12-31] MEDS: PROPOFOL 1,000 MG/100 ML BOTTLE IV SCH ×2 (05:10→10:45)
[2016-12-31 05:13] LABS: Band Neutrophils 4 % (0-10); Eosinophils 4 % (0-10); Hypochromasia 1+; Lymphocytes 9 % (20-55); Platelet Estimate Decreased; Segmented Neutrophils 77 % (50-85); Total Cells Counted 100
[2016-12-31] MEDS: PHENYTOIN 100 MG/2 ML VIAL IV SCH ×3 (05:31→21:46)
[2016-12-31] MEDS: LACTULOSE 20 GM/30 ML UDCUP PER TUBE SCH ×3 (05:31→21:46)
--- NOTE | 2016-12-31 07:30 | XRay Report ---
Referring Physician: Steve Allan Exam: XR chest 1V portable Date: December 31, 2016 at 3:20 AM Reason: Respiratory failure Comparison: Chest one view portable December 30, 2016 Findings: An endotracheal tube is again in place. Its distal tip projects 2 cm above the josiah. A right-sided central venous catheter and feeding tube are again in place. The heart is largely obscured but likely stable in size. There are prominent patchy opacities within both lungs. This could represent pulmonary edema and/or pneumonia. No pneumothorax is identified, but there may be mild bilateral pleural fluid. The osseous structures appear stable. Impression: 1. The distal tip of the endotracheal tube now projects 2 cm above the josiah. 2. There are again prominent opacities within both lungs which have overall slightly increased. PROCEDURE INTERPRETED AT [facility] DEPARTMENT OF RADIOLOGY Final Report Signed by: Dr. Beti Blair
--- NOTE | 2016-12-31 07:46 | Hospitalist Progress Note ---
Assessment and Plan (1) Respiratory failure Status: Acute Assessment and plan: The patient is admitted to the hospital with respiratory failure. The patient' s pulmonary edema worsened due to fluid resuscitation he is now requiring mechanical ventilation. The patient's infection is improving with treatment including IV antibiotics of aztreonam and daptomycin. We are going to a continue diuresis today with scheduled Lasix twice daily in order to improve gas exchange and pulmonary edema. We will continue enteral nutrition. The patient may be appropriate for long-term acute care due to ARDS. Current Visit: Yes Qualifiers: Chronicity: acute on chronic Respiratory failure complication: hypoxia and hypercapnia Qualified Code(s): J96.21 - Acute and chronic respiratory failure with hypoxia; J96.22 - Acute and chronic respiratory failure with hypercapnia (2) Hypotension Status: Acute Current Visit: Yes (3) History of seizures Status: Chronic Current Visit: Yes (4) Anasarca associated with disorder of kidney Status: Acute Current Visit: Yes (5) Cellulitis of right lower extremity Status: Acute Current Visit: Yes (6) Septic shock Status: Acute Current Visit: Yes Hospitalist: Subjective Interval history: The patient was admitted to the hospital with sepsis syndrome whose primary source is likely the bilateral cellulitis of lower extremities. The patient has developed progressive respiratory distress including hypoxia predominant respiratory failure requiring mechanical ventilation. Chest x-ray is consistent with systemic inflammatory response syndrome and high peak pressures are consistent with adult respiratory distress. The patient had no new events overnight. Hemodynamics are improved and urine output is stable. The patient had improved urine output after Lasix was started yesterday. The patient required initial fluid resuscitation of multiple liters of saline and this is now being diuresed as hemodynamics have improved with treatment of the infection. The patient continues on IV antibiotics with aztreonam and daptomycin. Exam - Constitutional Vitals: Period Temp Pulse Resp BP Sys/Frazier Pulse Ox Last 24 Hr 97.2 F-100.2 F 62-103 16-27 77-151/40-80 91-99 Exam: Constitutional System: No distress. No tremulousness. The patient is orally intubated and mechanically ventilated. He is sedated with Diprivan Head: Normocephalic, atraumatic. Ears, Nose and Throat System: No evidence of Otitis or Mastoiditis. No epistaxis or discharge Eyes System: Pupils equal, round, and reactive. Extraocular muscles intact. Neck: Supple, without adenopathy, 2+ jugular venous distention. No thyromegaly , neck mass, or prior surgery apparent. Respiratory System: Chest rales in dependent areas to auscultation. Cardiovascular System: Heart with regular rate and rhythm. No murmur. GI System: Abdomen obese, soft, nontender. Hypo-active bowel sounds present. Musculoskeletal System: limbs with 3+ pedal edema and cellulitis. Full distal pulses. Neurological System: Exam not possible due to sedation Results - Labs CBC & BMP: 12/31/16 03:55 12/31/16 03:55 Lab Results: I have reviewed the past 24 hour labs - Diagnostic Findings Procedure: Chest x-ray: image reviewed by me (The patient's chest x-ray shows fluffy infiltrates bilaterally consistent with ARDS)
--- NOTE | 2016-12-31 08:27 | Pulmonology Progress Note ---
Pulmonary - PN: Subj Interval history: Patient is a 56-year-old that came in with septic shock and hypotension. He is felt to have a component of cirrhosis. He has cellulitis of his leg. He has a past history of having a CVA and seizures. He has been poorly responsive and having worsening respiratory insufficiency and CO2 retention. He is still somewhat hypoxemic on the ventilator and his x-ray looks worse. He did diurese fairly well yesterday. He is off pressors now. We will continue ventilatory support for now Exam (Progress Note) - Constitutional Vitals: Period Temp Pulse Resp BP Sys/Frazier Pulse Ox Last 24 Hr 97.2 F-100.2 F 72-103 16-27 77-151/40-80 89-99 Exam: General appearance: over weight, other (He is sedated and comfortable on the ventilator. He does look edematous. His oxygenation is still borderline.) - Head Head exam: Present: normal inspection, normocephalic - Eye Eye exam: Present: EOMI, scleral icterus Pupils: Present: GAYLE - ENT ENT exam: Present: The ET tube is in good position. He does have some soft tissue swelling. - Neck Neck exam: Present: He has a very short large neck - Respiratory Respiratory exam: Present: He has good breath sounds bilaterally although he does have rhonchi and rales present. - Cardiovascular Cardiovascular exam: Present: regular rate and rhythm. Absent: gallop, systolic murmur - GI/Abdominal GI/Abdominal exam: Present: distended, normal bowel sounds, soft. He has a BMS system in place. Absent: organomegaly, tenderness - Extremities Exam Extremities exam: Present: edema (There is brawny edema of the lower extremities ). Absent: calf tenderness - Neurological Exam Neurological exam: Present: altered (He is arousable and require sedation.) - Skin Skin exam: Present: warm, dry Results - Labs CBC & BMP: 12/31/16 03:55 12/31/16 03:55 Labs: His PO2 is 70 with a PCO2 of 53 and a pH of 7.31 - Diagnostic Findings Procedure: Chest x-ray: image reviewed by me, report reviewed by me (Chest x- ray shows extensive bilateral infiltrates.) Assessment and Plan (1) History of seizures Status: Chronic Assessment and plan: The patient has had a CVA and history of seizures and is on Dilantin. Current Visit: Yes (2) Acute renal failure Status: Resolved Assessment and plan: Patient came in with some renal insufficiency but his creatinine has been better and is 1.1 today. Current Visit: Yes (3) Cellulitis of right lower extremity Status: Acute Assessment and plan: Patient has edema and cellulitis of his legs Current Visit: Yes (4) Septic shock Status: Acute Assessment and plan: Patient originally presented with hypotension and some component of shock. He is off pressors now and his blood pressure is better. Current Visit: Yes (5) Cirrhosis Status: Acute Assessment and plan: The patient is getting more jaundiced and possibly has some hepatic encephalopathy. Ammonia level is down. Current Visit: Yes (6) ANDRIA (obstructive sleep apnea) Status: Chronic Assessment and plan: The patient is on the ventilator at present. Current Visit: Yes (7) Respiratory failure Status: Acute Assessment and plan: The patient had respiratory failure and is now on the ventilator. His chest x- ray shows diffuse infiltrates with probably some volume overload. He did diurese fairly well. He still is requiring significant PEEP. We will continue with ventilatory support. Current Visit: Yes Qualifiers: Chronicity: acute on chronic Respiratory failure complication: hypoxia and hypercapnia Qualified Code(s): J96.21 - Acute and chronic respiratory failure with hypoxia; J96.22 - Acute and chronic respiratory failure with hypercapnia
--- NOTE | 2016-12-31 08:28 | Cardiology Progress Note ---
Assessment and Plan (1) Septic shock Status: Acute Assessment and plan: 56y araceli HERNANDEZ presented with septic shock, due to lower extremity cellulitis. Cardiac biomarkers suggestive of myocardial injury, without ischemic EKG changes. Initially, had prolonged QTC, resolved with improved metabolic status. No malignant arrhythmia so far. Obstructive sleep apnea, morbid obesity, alcohol abuse, seizures, CRISTOPHER resolved, thrombocytopenia, anemia. -Cardiac injury. Doubt ACS. LVEF was preserved. He had severe metabolic derangement and hypotension. Hemodynamics improved. He will need ischemic evaluation, once recovers from acute issues. -Continue aspirin.Still on low dose Levophed. When hemodynamically stable, will start beta-corby. I would hold off statin due to his comorbidities. -Continue to monitor and replete electrolytes, avoid QTC prolonging agents. Current Visit: Yes (2) Hypotension Status: Acute Current Visit: Yes (3) Confusion Status: Acute Current Visit: Yes (4) History of seizures Status: Chronic Current Visit: Yes (5) Cirrhosis Status: Acute Current Visit: Yes (6) ANDRIA (obstructive sleep apnea) Status: Chronic Current Visit: Yes (7) Elevated troponin Status: Acute Current Visit: Yes (8) Respiratory failure Status: Acute Current Visit: Yes Qualifiers: Qualified Code(s): J96.21 - Acute and chronic respiratory failure with hypoxia; J96.22 - Acute and chronic respiratory failure with hypercapnia Cardiology - PN: Subj Interval history: He was more hypoxic, oxygen was increased with ventilator. Blood pressure, heart rate stable. No sustained arrhythmia. EKG without major repolarization changes. Exam (Progress Note) - Constitutional Vitals: Period Temp Pulse Resp BP Sys/Frazier Pulse Ox Last 24 Hr 97.2 F-100.2 F 72-103 16-27 77-151/40-80 89-99 General appearance: morbidly obese - Head Head exam: Present: normal inspection - Eye Eye exam: Absent: periorbital swelling - ENT ENT exam: Present: other (thick neck) - Respiratory Respiratory exam: Present: decreased breath sounds - Cardiovascular Cardiovascular exam: Present: regular rate and rhythm - GI/Abdominal GI/Abdominal exam: Present: hypoactive bowel sounds - Extremities Exam Extremities exam: Present: edema (1+) - Back Exam Back exam: Present: normal inspection - Neurological Exam Neurological exam: Present: other (unresponsive) - Skin Skin exam: Present: normal color, warm Result/EKG - Labs CBC & BMP: 12/31/16 03:55 12/31/16 03:55 Lab Results: I have reviewed the past 24 hour labs Labs: Laboratory Results - last 24 hr 12/30/16 12/30/16 12/31/16 17:40 23:27 03:26 WBC RBC Hgb Hct MCV MCH MCHC RDW Plt Count MPV Neut % (Auto) Lymph % (Auto) [place] % (Auto) Eos % (Auto) Baso % (Auto) Neut # (Auto) Lymph # (Auto) [place] # (Auto) Eos # (Auto) Baso # (Auto) Total Counted Immature Gran % Nucleated RBC % Immature Gran # Segmented Neutrophils Band Neutrophils Lymphocytes Monocytes Eosinophils Nucleated RBCs # Platelet Estimate Hypochromasia Morphology Comment ABG pH 7.310 L ABG pCO2 53.8 H ABG pO2 70.3 L ABG HCO3 26.5 H ABG Total CO2 28.1 H ABG O2 Saturation 93.5 L ABG Base Excess -0.4 FiO2 60.00 Sodium Potassium Chloride Carbon Dioxide Anion Gap BUN Creatinine GFR Calculation BUN/Creatinine Ratio Glucose POC Glucose 116 H 182 H Calculated Osmolality Calcium Phosphorus Magnesium Ammonia Prealbumin 12/31/16 12/31/16 12/31/16 03:55 03:55 03:55 WBC 15.5 H D RBC 3.38 L Hgb 10.3 L Hct 32.9 L MCV 97.3 MCH 31 MCHC 31.3 L RDW 15.3 Plt Count 79 L MPV 10.6 Neut % (Auto) 78.6 H Lymph % (Auto) 6.9 L [place] % (Auto) 8.0 Eos % (Auto) 3.2 Baso % (Auto) 0.3 Neut # (Auto) 12.2 H Lymph # (Auto) 1.1 L [place] # (Auto) 1.2 H Eos # (Auto) 0.5 Baso # (Auto) 0.1 Total Counted 100 Immature Gran % 3.0 Nucleated RBC % 0.2 Immature Gran # 0.46 Segmented Neutrophils 77 Band Neutrophils 4 Lymphocytes 9 L Monocytes 6 Eosinophils 4 Nucleated RBCs # 0.03 Platelet Estimate Decreased Hypochromasia 1+ Morphology Comment ABG pH ABG pCO2 ABG pO2 ABG HCO3 ABG Total CO2 ABG O2 Saturation ABG Base Excess FiO2 Sodium 143 Potassium 3.9 Chloride 111 H Carbon Dioxide 27 Anion Gap 8.9 BUN 28 H Creatinine 1.10 GFR Calculation 103 BUN/Creatinine Ratio 25.00 H Glucose 156 H POC Glucose Calculated Osmolality 293.0 Calcium 7.6 L Phosphorus 3.0 Magnesium 1.7 L Ammonia 19 Prealbumin < 3.0 L 12/31/16 05:35 WBC RBC Hgb Hct MCV MCH MCHC RDW Plt Count MPV Neut % (Auto) Lymph % (Auto) [place] % (Auto) Eos % (Auto) Baso % (Auto) Neut # (Auto) Lymph # (Auto) [place] # (Auto) Eos # (Auto) Baso # (Auto) Total Counted Immature Gran % Nucleated RBC % Immature Gran # Segmented Neutrophils Band Neutrophils Lymphocytes Monocytes Eosinophils Nucleated RBCs # Platelet Estimate Hypochromasia Morphology Comment ABG pH ABG pCO2 ABG pO2 ABG HCO3 ABG Total CO2 ABG O2 Saturation ABG Base Excess FiO2 Sodium Potassium Chloride Carbon Dioxide Anion Gap BUN Creatinine GFR Calculation BUN/Creatinine Ratio Glucose POC Glucose 165 H Calculated Osmolality Calcium Phosphorus Magnesium Ammonia Prealbumin
[2016-12-31] MEDS: THIAMINE 200 MG/2 ML VIAL IV SCH (08:56)
[2016-12-31] MEDS: FUROSEMIDE 40 MG/4 ML VIAL IV SCH ×2 (08:56→15:09)
[2016-12-31] MEDS: DESITIN 4OZ/NYSTATIN 15 GRAM MIXTURE PASTE TOP SCH ×2 (08:58→21:57)
[2016-12-31] MEDS: ASPIRIN EC 325 MG TABLET PO SCH (08:58)
[2016-12-31] MEDS: DIAZEPAM 10 MG/2 ML SYRINGE IV SCH ×3 (08:59→22:03)
[2016-12-31] MEDS: FAMOTIDINE 20 MG/2 ML VIAL IV SCH ×2 (09:08→22:38)
--- NOTE | 2016-12-31 10:44 | EKG Report ---
Please refer to the EKG image. Final interpretation is pending.
[2016-12-31] MEDS: MULTIVITAMIN INJ 10 ML in DEXTROSE 5% 1,000 ML IV SCH (17:56)
[2016-12-31] MEDS: NOREPINEPHRINE 8 MG in SODIUM CHLORIDE 0.9% 242 ML IV SCH (21:57)
[2017-01-01] MEDS: ALBUTEROL/IPRATROPIUM 3 ML NEB RESP TX SCH ×4 (01:00→18:23)
[2017-01-01] MEDS: INSULIN REGULAR 100 UNIT/ML SUBCUT SCH ×4 (02:08→18:50)
[2017-01-01] MEDS: AZTREONAM 2,000 MG in SODIUM CHLORIDE 0.9% 100 ML IV SCH ×3 (02:44→15:31)
[2017-01-01] MEDS: DIAZEPAM 10 MG/2 ML SYRINGE IV SCH ×5 (03:45→22:23)
[2017-01-01 03:46] LABS: ABG Base Excess 0.4 MMOL/L (-2.5-2.5); ABG HCO3 24.8 MMOL/L (20-26); ABG Oxygen Saturation 99.2 % (95-100); ABG PCO2 36.8 MM HG (35-48); ABG PH 7.431 (7.35-7.45); ABG TCO2 22.2 MMOL/L (23-27); Allen Test Positive; Pt O2 Delivery Device Ventilator
[2017-01-01 05:24] LABS: Basophils % 0.2 % (0.0-0.8); Eosinophils # 0.4 10*3/uL (0.0-0.87); Eosinophils % 3.6 % (0.00-10.9); Hematocrit 29.9 VOL% (42.0-52.0); Hemoglobin 9.4 GM/DL (14.0-18.0); Immature Granulocytes Absolute 0.25 #; Lymphocytes # 1.1 10*3/uL (1.4-4.0); Lymphocytes % 8.7 % (21.2-54.2); Mean Corpuscular HGB Conc 31.4 GM/DL (32-36); Mean Corpuscular Hemoglobin 30 PG (27-34); Mean Corpuscular Volume 95.5 FL (87-102); Mean Platelet Volume 10.7 FL (9.6-12.0); Monocytes # 0.7 10*3/uL (0.11-0.8); NRBC # 0.03 10*3/uL; Neutrophils # 9.8 10*3/uL (1.4-7.4); Neutrophils % 79.5 % (38.7-73.9); Platelet Count 82 T/CUMM (130-400); Red Blood Count 3.13 MC/CUMM (3.8-5.5); Red Cell Distribution Width 15.5 % (9.3-17.3); White Blood Count 12.3 T/CUMM (4-12)
[2017-01-01 05:41] LABS: Hypochromasia 1+; Ovalocytes Slight; Platelet Estimate Decreased
[2017-01-01] MEDS: PHENYTOIN 100 MG/2 ML VIAL IV SCH ×3 (06:01→21:27)
[2017-01-01 06:04] LABS: Lactic Acid 1.4 MMOL/L (0.4-2.0)
[2017-01-01 06:22] LABS: Albumin 1.6 G/DL (3.4-5.0); Bilirubin,Total 6.9 MG/DL (0.2-1.0); Calcium 7.3 MG/DL (8.5-10.1); Osmolality,Calculated 297.8 MOS/KG (273-304); Potassium 3.3 MMOL/L (3.5-5.1); Total Protein 5.7 G/DL (6.4-8.3)
[2017-01-01] MEDS: POTASSIUM CHLORIDE RIDER 20 MEQ in PREMIX 1 EACH IV PRN (07:07)
[2017-01-01 07:43] LABS: INR 1.2; PT Patient Result 13.2 SECS
--- NOTE | 2017-01-01 07:48 | Pulmonology Progress Note ---
Pulmonary - PN: Subj Interval history: Patient is a 56-year-old that came in with septic shock and hypotension. He is felt to have a component of cirrhosis. He has cellulitis of his leg. He has a past history of having a CVA and seizures. He has been poorly responsive and having worsening respiratory insufficiency and CO2 retention. He has developed extensive bilateral infiltrates. He has been sedated on the ventilator. While on sedation he has required low-dose Levophed. His oxygenation is a little better today. He has had good urine output. His weight is down a few kilograms. His chest x-ray does look a little better today. His main airway pressures are around 26. He remains fairly comfortable on the ventilator. Exam (Progress Note) - Constitutional Vitals: Period Temp Pulse Resp BP Sys/Frazier Pulse Ox Last 24 Hr 97.3 F-99.6 F 59-86 7-24 76-132/35-62 90-100 Exam: General appearance: over weight, other (He is sedated and comfortable on the ventilator. He looks a little less edematous today.) - Head Head exam: Present: normal inspection, normocephalic - Eye Eye exam: Present: EOMI, scleral icterus Pupils: Present: GAYLE - ENT ENT exam: Present: The ET tube is in good position. He does have some soft tissue swelling. - Neck Neck exam: Present: He has a very short large neck - Respiratory Respiratory exam: Present: He has good breath sounds bilaterally although he does have rhonchi and rales present. - Cardiovascular Cardiovascular exam: Present: regular rate and rhythm. Absent: gallop, systolic murmur - GI/Abdominal GI/Abdominal exam: Present: distended, normal bowel sounds, soft. He has a BMS system in place. He has not been tolerating tube feedings very well. Absent: organomegaly, tenderness - Extremities Exam Extremities exam: Present: edema (There is brawny edema of the lower extremities ). Absent: calf tenderness - Neurological Exam Neurological exam: Present: altered (He is arousable and require sedation.) - Skin Skin exam: Present: warm, dry Results - Labs CBC & BMP: 01/01/17 05:15 01/01/17 05:15 Labs: His PO2 is 133 with a PCO2 of 36 and a pH of 7.43 - Diagnostic Findings Procedure: Chest x-ray: image reviewed by me, report reviewed by me (Chest x- ray shows improving bilateral infiltrates.) Assessment and Plan (1) History of seizures Status: Chronic Assessment and plan: The patient has had a CVA and history of seizures and is on Dilantin. Current Visit: Yes (2) Acute renal failure Status: Resolved Assessment and plan: Patient came in with some renal insufficiency but his creatinine has been better. Today his creatinine is 1.2. Current Visit: Yes (3) Cellulitis of right lower extremity Status: Acute Assessment and plan: Patient has edema and cellulitis of his legs. His legs are wrapped and stable. Current Visit: Yes (4) Septic shock Status: Acute Assessment and plan: Patient originally presented with hypotension and some component of shock. He has been fairly stable but still requires low-dose pressors since he is requiring some sedation. Current Visit: Yes (5) Cirrhosis Status: Acute Assessment and plan: The patient is getting more jaundiced and possibly has some hepatic encephalopathy. Ammonia level is down. He does have a bilirubin of 6.9. Current Visit: Yes (6) ANDRIA (obstructive sleep apnea) Status: Chronic Assessment and plan: The patient is on the ventilator at present. Current Visit: Yes (7) Respiratory failure Status: Acute Assessment and plan: The patient had respiratory failure and is now on the ventilator. His oxygenation is a little better today. His chest x-ray looks a little bit better also. We will continue ventilatory support for now. Current Visit: Yes Qualifiers: Chronicity: acute on chronic Respiratory failure complication: hypoxia and hypercapnia Qualified Code(s): J96.21 - Acute and chronic respiratory failure with hypoxia; J96.22 - Acute and chronic respiratory failure with hypercapnia
--- NOTE | 2017-01-01 08:23 | Hospitalist Progress Note ---
Assessment and Plan (1) Respiratory failure Status: Acute Assessment and plan: The patient is admitted to the hospital with respiratory failure. The patient' s pulmonary edema worsened due to fluid resuscitation he is now requiring mechanical ventilation. The patient's infection is improving with treatment including IV antibiotics of aztreonam and daptomycin. We are going to a continue diuresis today with scheduled Lasix twice daily in order to improve gas exchange and pulmonary edema. We will continue enteral nutrition. The patient is appropriate for long-term acute care due to ARDS. I am going to increase scheduled Valium dose in order to reduce Diprivan so that Levophed can be weaned off. Current Visit: Yes Qualifiers: Chronicity: acute on chronic Respiratory failure complication: hypoxia and hypercapnia Qualified Code(s): J96.21 - Acute and chronic respiratory failure with hypoxia; J96.22 - Acute and chronic respiratory failure with hypercapnia (2) Hypotension Status: Acute Current Visit: Yes (3) History of seizures Status: Chronic Current Visit: Yes (4) Anasarca associated with disorder of kidney Status: Acute Current Visit: Yes (5) Cellulitis of right lower extremity Status: Acute Current Visit: Yes (6) Septic shock Status: Acute Current Visit: Yes Hospitalist: Subjective Interval history: Mr. Rolon was stable overnight. The patient has required increased sedation with Diprivan in order to reduce biting on the ET tube. This has caused blood pressure to be lower and Levophed was restarted overnight. The patient has high residuals on NG tube feedings which are presently on hold. Oxygenation is the same as yesterday and chest x-ray marginally improved. Exam - Constitutional Vitals: Period Temp Pulse Resp BP Sys/Frazier Pulse Ox Last 24 Hr 97.3 F-98.7 F 59-86 7-24 76-132/35-61 90-100 Exam: Constitutional System: No distress. No tremulousness. The patient is orally intubated and mechanically ventilated. He is sedated with Diprivan Head: Normocephalic, atraumatic. Ears, Nose and Throat System: No evidence of Otitis or Mastoiditis. No epistaxis or discharge Eyes System: Pupils equal, round, and reactive. Extraocular muscles intact. Neck: Supple, without adenopathy, 2+ jugular venous distention. No thyromegaly , neck mass, or prior surgery apparent. Respiratory System: Chest rales in dependent areas to auscultation. Cardiovascular System: Heart with regular rate and rhythm. No murmur. GI System: Abdomen obese, soft, nontender. Hypo-active bowel sounds present. Musculoskeletal System: limbs with 2+ pedal edema and cellulitis. Full distal pulses. Neurological System: Exam not possible due to sedation Results - Labs CBC & BMP: 01/01/17 05:15 01/01/17 05:15 Lab Results: I have reviewed the past 24 hour labs
--- NOTE | 2017-01-01 08:35 | XRay Report ---
XR chest 1V portable Indication: Ventilator Comparison: Chest x-ray dated December 31, 2016 Technique: Single frontal view of the chest Findings: Endotracheal tube tip remains at the clavicular level. Mild interval improved diffuse bilateral pulmonary opacification. Osseous and surrounding soft tissue structures appear grossly unchanged. Right-sided central venous catheter appears grossly unchanged in positioning. IMPRESSION: Mildly improved diffuse bilateral consolidation. PROCEDURE INTERPRETED AT [facility] DEPARTMENT OF RADIOLOGY Final Report Signed by: Dr Hector Dale
[2017-01-01] MEDS: LACTULOSE 20 GM/30 ML UDCUP PER TUBE SCH ×2 (08:40→21:27)
[2017-01-01] MEDS: FUROSEMIDE 40 MG/4 ML VIAL IV SCH ×2 (08:41→15:28)
[2017-01-01] MEDS: THIAMINE 200 MG/2 ML VIAL IV SCH (08:41)
[2017-01-01] MEDS: ASPIRIN EC 325 MG TABLET PO SCH (08:41)
[2017-01-01] MEDS: DESITIN 4OZ/NYSTATIN 15 GRAM MIXTURE PASTE TOP SCH ×2 (08:42→21:28)
[2017-01-01] MEDS: PROPOFOL 1,000 MG/100 ML BOTTLE IV SCH ×2 (09:12→22:24)
[2017-01-01] MEDS: FAMOTIDINE 20 MG/2 ML VIAL IV SCH ×2 (09:33→21:27)
[2017-01-01] MEDS: METOCLOPRAMIDE 10 MG/2 ML VIAL IV SCH ×2 (12:49→18:49)
--- NOTE | 2017-01-01 14:43 | Cardiology Progress Note ---
Gabe Castano Vanessa, RN, am scribing for, and in the presence of, Epifanio Campos MD 14 :43. Assessment and Plan - Time spent with patient Time spent with patient: Greater than 30 minutes (1) Septic shock Status: Acute Assessment and plan: 56y araceli HERNANDEZ presented with septic shock, due to lower extremity cellulitis. Cardiac biomarkers suggestive of myocardial injury, without ischemic EKG changes. Initially, had prolonged QTC, resolved with improved metabolic status. Comorbities- obstructive sleep apnea, morbid obesity, alcohol abuse, seizures, CRISTOPHER resolved, thrombocytopenia, anemia. -Cardiac injury. Doubt ACS. LVEF was preserved, 65%. He had severe metabolic derangement and hypotension. Hemodynamics improved. He will need ischemic evaluation, once recovers from acute issues. -No recurrence of malignant arrhythmia. -Continue aspirin. When hemodynamically stable, will start beta-corby. Hold off statin due to his comorbidities. -Continue to monitor and replete electrolytes, avoid QTC prolonging agents. Current Visit: Yes (2) History of seizures Status: Chronic Current Visit: Yes (3) Hypotension Status: Acute Current Visit: Yes (4) Cellulitis of right lower extremity Status: Acute Current Visit: Yes (5) Confusion Status: Acute Current Visit: Yes (6) Elevated troponin Status: Acute Current Visit: Yes (7) Thrombocytopenia Status: Acute Current Visit: Yes (8) ANDRIA (obstructive sleep apnea) Status: Chronic Current Visit: Yes (9) Cirrhosis Status: Acute Current Visit: Yes (10) Hypokalemia Status: Acute Current Visit: Yes (11) Respiratory failure Status: Acute Current Visit: Yes Qualifiers: Chronicity: acute on chronic Respiratory failure complication: hypoxia and hypercapnia Qualified Code(s): J96.21 - Acute and chronic respiratory failure with hypoxia; J96.22 - Acute and chronic respiratory failure with hypercapnia Cardiology - PN: Subj Interval history: BP stable overnight with low dose vasopressor. HR stable, regular rhythm. No overt ectopy or arrhythmia per tele review. Appears to be comfortable on ventilator. WBC continues to improve. K+ is 3.3 today. Exam (Progress Note) - Constitutional Vitals: Period Temp Pulse Resp BP Sys/Frazier Pulse Ox Last 24 Hr 97.3 F-98.7 F 59-86 7-24 76-132/35-61 90-100 General appearance: morbidly obese - Head Head exam: Present: normal inspection - Eye Eye exam: Absent: periorbital swelling - ENT ENT exam: Present: normal external ear exam, other (thick neck) - Neck Neck exam: Absent: tenderness - Respiratory Respiratory exam: Present: clear to auscultation bilaterally - Cardiovascular Cardiovascular exam: Present: regular rate and rhythm - GI/Abdominal GI/Abdominal exam: Present: hypoactive bowel sounds. Absent: tenderness - Extremities Exam Extremities exam: Present: normal inspection, normal capillary refill, edema (2+ ) - Neurological Exam Neurological exam: Present: altered - Skin Skin exam: Present: normal color, warm Result/EKG - Labs CBC & BMP: 01/01/17 05:15 01/01/17 05:15 Lab Results: I have reviewed the past 24 hour labs Labs: Laboratory Results - last 24 hr 12/31/16 12/31/16 12/31/16 11:18 18:11 23:47 WBC RBC Hgb Hct MCV MCH MCHC RDW Plt Count MPV Neut % (Auto) Lymph % (Auto) Faulk % (Auto) Eos % (Auto) Baso % (Auto) Neut # (Auto) Lymph # (Auto) Faulk # (Auto) Eos # (Auto) Baso # (Auto) Immature Gran % Nucleated RBC % Immature Gran # Nucleated RBCs # Platelet Estimate Hypochromasia Ovalocytes Morphology Comment INR PT Patient/Control Mix ABG pH ABG pCO2 ABG pO2 ABG HCO3 ABG Total CO2 ABG O2 Saturation ABG Base Excess FiO2 Sodium Potassium Chloride Carbon Dioxide Anion Gap BUN Creatinine GFR Calculation BUN/Creatinine Ratio Glucose POC Glucose 125 H 144 H 155 H Calculated Osmolality Lactic Acid Calcium Magnesium Total Bilirubin AST ALT Alkaline Phosphatase Ammonia Total Protein Albumin Globulin Albumin/Globulin Ratio 01/01/17 01/01/17 01/01/17 03:32 05:15 05:15 WBC 12.3 H RBC 3.13 L Hgb 9.4 L Hct 29.9 L MCV 95.5 MCH 30 MCHC 31.4 L RDW 15.5 Plt Count 82 L MPV 10.7 Neut % (Auto) 79.5 H Lymph % (Auto) 8.7 L Faulk % (Auto) 6.0 Eos % (Auto) 3.6 Baso % (Auto) 0.2 Neut # (Auto) 9.8 H Lymph # (Auto) 1.1 L Faulk # (Auto) 0.7 Eos # (Auto) 0.4 Baso # (Auto) 0.0 Immature Gran % 2.0 Nucleated RBC % 0.2 Immature Gran # 0.25 Nucleated RBCs # 0.03 Platelet Estimate Decreased Hypochromasia 1+ Ovalocytes Slight Morphology Comment INR PT Patient/Control Mix ABG pH 7.431 ABG pCO2 36.8 ABG pO2 133.0 H ABG HCO3 24.8 ABG Total CO2 22.2 L ABG O2 Saturation 99.2 ABG Base Excess 0.4 FiO2 60.00 Sodium 144 Potassium 3.3 L Chloride 110 H Carbon Dioxide 25 Anion Gap 12.3 BUN 44 H Creatinine 1.20 GFR Calculation 92 BUN/Creatinine Ratio 36.00 H Glucose 125 H POC Glucose Calculated Osmolality 297.8 Lactic Acid 1.4 Calcium 7.3 L Magnesium 2.0 Total Bilirubin 6.90 H AST 101 H ALT 30 Alkaline Phosphatase 136 H Ammonia 12 Total Protein 5.7 L Albumin 1.6 L Globulin 4.1 H Albumin/Globulin Ratio 0.3 L 01/01/17 01/01/17 05:28 07:14 WBC RBC Hgb Hct MCV MCH MCHC RDW Plt Count MPV Neut % (Auto) Lymph % (Auto) Faulk % (Auto) Eos % (Auto) Baso % (Auto) Neut # (Auto) Lymph # (Auto) Faulk # (Auto) Eos # (Auto) Baso # (Auto) Immature Gran % Nucleated RBC % Immature Gran # Nucleated RBCs # Platelet Estimate Hypochromasia Ovalocytes Morphology Comment INR 1.2 PT Patient/Control Mix 13.2 ABG pH ABG pCO2 ABG pO2 ABG HCO3 ABG Total CO2 ABG O2 Saturation ABG Base Excess FiO2 Sodium Potassium Chloride Carbon Dioxide Anion Gap BUN Creatinine GFR Calculation BUN/Creatinine Ratio Glucose POC Glucose 153 H Calculated Osmolality Lactic Acid Calcium Magnesium Total Bilirubin AST ALT Alkaline Phosphatase Ammonia Total Protein Albumin Globulin Albumin/Globulin Ratio - Diagnostic Findings Procedure: Chest x-ray: image reviewed by me, report reviewed by me - EKG EKG results: interpreted by me EKG shows: sinus rhythm Andres Castano Attila, MD, personally performed the services described in this documentation, ascribed by Arianne Bernal RN in my presence, and it is both accurate and complete 443 .
[2017-01-01] MEDS: MULTIVITAMIN INJ 10 ML in DEXTROSE 5% 1,000 ML IV SCH (18:27)
[2017-01-01] MEDS: NOREPINEPHRINE 8 MG in SODIUM CHLORIDE 0.9% 242 ML IV SCH (21:29)
[2017-01-02] MEDS: ALBUTEROL/IPRATROPIUM 3 ML NEB RESP TX SCH ×4 (00:45→19:42)
[2017-01-02] MEDS: AZTREONAM 2,000 MG in SODIUM CHLORIDE 0.9% 100 ML IV SCH ×3 (00:58→15:52)
[2017-01-02] MEDS: METOCLOPRAMIDE 10 MG/2 ML VIAL IV SCH ×4 (00:58→17:56)
[2017-01-02] MEDS: INSULIN REGULAR 100 UNIT/ML SUBCUT SCH ×4 (00:59→17:57)
[2017-01-02] MEDS: DIAZEPAM 10 MG/2 ML SYRINGE IV SCH ×4 (02:07→20:16)
[2017-01-02 03:30] LABS: ABG Base Excess -0.3 MMOL/L (-2.5-2.5); ABG HCO3 24.3 MMOL/L (20-26); ABG Oxygen Saturation 98.6 % (95-100); ABG PCO2 39.4 MM HG (35-48); ABG PH 7.408 (7.35-7.45); ABG PO2 146.7 MM HG (80-95); ABG TCO2 25.5 MMOL/L (23-27); Allen Test Positive; Pt O2 Delivery Device Ventilator
[2017-01-02] MEDS ORDERED: VECURONIUM 10 MG VIAL IV ONE ×2 (03:37→03:40)
[2017-01-02 04:16] LABS: Basophils % 0.1 % (0.0-0.8); Eosinophils # 0.5 10*3/uL (0.0-0.87); Eosinophils % 6.5 % (0.00-10.9); Hematocrit 28.5 VOL% (42.0-52.0); Hemoglobin 9.2 GM/DL (14.0-18.0); Immature Granulocytes % 1.9 %; Immature Granulocytes Absolute 0.15 #; Lymphocytes % 12.6 % (21.2-54.2); Mean Corpuscular HGB Conc 32.3 GM/DL (32-36); Mean Corpuscular Hemoglobin 31 PG (27-34); Mean Platelet Volume 10.8 FL (9.6-12.0); Monocytes # 0.6 10*3/uL (0.11-0.8); Monocytes % 7.4 % (1.7-12.7); Neutrophils # 5.5 10*3/uL (1.4-7.4); Neutrophils % 71.5 % (38.7-73.9); Platelet Count 103 T/CUMM (130-400); Red Cell Distribution Width 15.4 % (9.3-17.3); White Blood Count 7.7 T/CUMM (4-12)
[2017-01-02 04:56] LABS: Albumin 1.6 G/DL (3.4-5.0); Bilirubin,Total 6.9 MG/DL (0.2-1.0); Calcium 7.4 MG/DL (8.5-10.1); Magnesium 2.1 MG/DL (1.8-2.4); Osmolality,Calculated 305.6 MOS/KG (273-304); Phosphorous 4.2 MG/DL (2.5-4.9); Total Protein 5.8 G/DL (6.4-8.3)
[2017-01-02] MEDS: PROPOFOL 1,000 MG/100 ML BOTTLE IV SCH ×4 (05:01→23:20)
[2017-01-02] MEDS: POTASSIUM CHLORIDE RIDER 20 MEQ in PREMIX 1 EACH IV PRN ×2 (05:33→06:01)
[2017-01-02] MEDS: PHENYTOIN 100 MG/2 ML VIAL IV SCH ×3 (05:34→20:17)
--- NOTE | 2017-01-02 06:10 | Pulmonology Progress Note ---
Pulmonary - PN: Subj Interval history: Patient is a 56-year-old that came in with septic shock and hypotension. He is felt to have a component of cirrhosis. He has cellulitis of his leg. He has a past history of having a CVA and seizures. He has been poorly responsive and having worsening respiratory insufficiency and CO2 retention. He has developed extensive bilateral infiltrates. He has been sedated on the ventilator. While on sedation he has required low-dose Levophed. His oxygenation has improved although he still has bilateral infiltrates. He does have a lot of thick bloody secretions coming from his ET tube. He has a BMS and lots of loose stools. His urine output has been good. Exam (Progress Note) - Constitutional Vitals: Period Temp Pulse Resp BP Sys/Frazier Pulse Ox Last 24 Hr 97.5 F-100.3 F 54-107 21-26 78-189/37-111 92-100 Exam: General appearance: over weight, other (He is sedated and comfortable on the ventilator. He looks a little less edematous today. His oxygenation is better) - Head Head exam: Present: normal inspection, normocephalic - Eye Eye exam: Present: EOMI, scleral icterus Pupils: Present: GAYLE - ENT ENT exam: Present: The ET tube is in good position. He has less facial swelling now. - Neck Neck exam: Present: He has a very short large neck - Respiratory Respiratory exam: Present: He has good breath sounds bilaterally although he does have rhonchi and rales present. - Cardiovascular Cardiovascular exam: Present: regular rate and rhythm. Absent: gallop, systolic murmur - GI/Abdominal GI/Abdominal exam: Present: distended, normal bowel sounds, soft. He has a BMS system in place. He has not been tolerating tube feedings very well. Absent: organomegaly, tenderness - Extremities Exam Extremities exam: Present: edema (There is brawny edema of the lower extremities ). Absent: calf tenderness - Neurological Exam Neurological exam: Present: altered (He is arousable and requires sedation.) - Skin Skin exam: Present: warm, dry Results - Labs CBC & BMP: 01/02/17 04:02 01/02/17 04:00 Labs: PO2 is 146 with a PCO2 of 39 and a pH of 7.4 - Diagnostic Findings Procedure: Chest x-ray: image reviewed by me, report reviewed by me (Chest x- ray does show improving bilateral infiltrates.) Assessment and Plan (1) History of seizures Status: Chronic Assessment and plan: The patient has had a CVA and history of seizures and is on Dilantin. Current Visit: Yes (2) Acute renal failure Status: Resolved Assessment and plan: Patient came in with some renal insufficiency but his creatinine has been better. Today his creatinine is 1.3. Current Visit: Yes (3) Cellulitis of right lower extremity Status: Acute Assessment and plan: Patient has edema and cellulitis of his legs. His legs are wrapped and stable. Current Visit: Yes (4) Septic shock Status: Resolved Assessment and plan: Patient originally presented with hypotension and some component of shock. He has been fairly stable but still requires low-dose pressors since he is requiring some sedation. Overall his hemodynamics are stable. Current Visit: Yes (5) Cirrhosis Status: Acute Assessment and plan: The patient is getting more jaundiced and possibly has some hepatic encephalopathy. Ammonia level is down. He does have a bilirubin of 6.9. Current Visit: Yes (6) ANDRIA (obstructive sleep apnea) Status: Chronic Assessment and plan: The patient is on the ventilator at present. Current Visit: Yes (7) Respiratory failure Status: Acute Assessment and plan: The patient had respiratory failure and is now on the ventilator. His oxygenation is a little better today. His chest x-ray looks a little bit better also. He does have a lot of secretions and will proceed with a therapeutic bronchoscopy today. Overall he is fairly stable and may go to [facility]. Current Visit: Yes Qualifiers: Chronicity: acute on chronic Respiratory failure complication: hypoxia and hypercapnia Qualified Code(s): J96.21 - Acute and chronic respiratory failure with hypoxia; J96.22 - Acute and chronic respiratory failure with hypercapnia
[2017-01-02] MEDS: POTASSIUM CHLORIDE RIDER 10 MEQ in PREMIX 1 EACH IV PRN (06:36)
--- NOTE | 2017-01-02 07:29 | XRay Report ---
Referring Physician: Steve Allan Exam: XR chest 1V portable Date: January 02, 2017 at 3:01 AM Reason: Respiratory failure on ventilator Comparison: Chest one view portable January 01, 2017 Findings: An endotracheal tube, feeding tube and right-sided central venous catheter are again in place. The heart is partially obscured but likely stable in size. There are patchy opacities within both lungs, most prominent at the lower lung zones. This could represent pulmonary edema and/or pneumonia. No pneumothorax is identified, but there is mild bilateral pleural fluid. The osseous structures appear stable. Impression: There are persistent patchy opacities throughout both lungs. There is slight improved aeration of the right lower lung zone, but there is slight increased opacification of the left lower lung zone. PROCEDURE INTERPRETED AT [facility] DEPARTMENT OF RADIOLOGY Final Report Signed by: Dr. Beti Blair
--- NOTE | 2017-01-02 08:01 | Discharge Summary ---
Hospital Course - Hospital Course Hospital Course: Mr. Rolon was admitted to the hospital with sepsis syndrome. The patient was hypotensive. The patient received fluid resuscitation, pulmonary consultation, cardiology consultation. He was treated with IV antibiotics including daptomycin and aztreonam. The source of septicemia was apparently bilateral cellulitis of the lower extremities worse on the right than on the left. The cellulitis was improving on the third hospital day when the patient began developing adult respiratory distress syndrome. The patient had white fluffy infiltrates bilaterally. The patient's fluids were reduced and he had incremental improvement of the infiltrate after diuresis. The patient remains with moderate elevation of peak pressures and moderate white fluffy infiltrates bilaterally consistent with a large. The patient has become azotemic on Lasix intravenously twice daily. I am going to reduce the Lasix to control and once daily. The patient had bronchoscopy on the last date of admission to the hospital and cultures will be pending. Antibiotics should be adjusted according to culture results. Recovery of respiratory function is expected in 7 -10 days. The patient has been jaundiced and likely has cirrhotic liver disease. Has a history of stroke in the past. On the date of discharge, the patient is tolerating tube feedings and bowel function appears appropriate. I am going to transition ancillary medications to enteral route. Heart has regular rate and rhythm and echocardiogram has revealed preserved LV function. [id number] discharge time today was 38 minutes. - Time spent with patient Time with patient DS: Greater than 30 minutes Diagnosis - Discharge Diagnosis (1) Respiratory failure Status: Acute (2) Hypotension Status: Resolved (3) History of seizures Status: Chronic (4) Anasarca associated with disorder of kidney Status: Acute (5) Cellulitis of right lower extremity Status: Resolved (6) Septic shock Status: Resolved Discharge Plan - Discharge Data Disposition: Disch/Xfer to [facility] Condition at Discharge: Stable Discharge Diet: other (Tube feedings via nasogastric tube) - Discharge Medications New Albuterol Neb [Proventil Neb] 2.5 mg RESP TX RT Q1H PRN #0 PRN Reason: Shortness Of Breath/Wheezing Aspirin EC Tab 325 mg PO DAILY tablet Aztreonam [Azactam] 2,000 mg IV Q8H vial Dextrose 50% [D50] 25 gm IV PRN PRN #0 vial PRN Reason: Hypoglycemia with IV access Diazepam Inj [Valium Inj] 10 mg IV Q6H syringe Furosemide Tab [Lasix Tab] 40 mg PER TUBE DAILY tablet Glucagon 1 mg IM PRN PRN #0 vial PRN Reason: Hypoglycemia w/o IV access Insulin Regular [HumuLIN R] See Protocol SUBCUT Q6HR unit LORazepam INJ [Ativan Inj] 1 mg IV Q4H PRN #0 vial PRN Reason: Delirium Tremens Lactulose Liquid [Chronulac] 20 gm PER TUBE BID Magnesium Sulf Tate [Magnesium Sulfate Inj] 2 gm IV .PER PROTOCOL PRN #0 PRN Reason: Per Protocol Metoclopramide Inj [Reglan Inj] 5 mg IV Q6HR vial Norepinephrine [Levophed] 8 mg IV TITRATE vial Ondansetron Inj [Zofran Inj] 4 mg IV Q4H PRN #0 vial PRN Reason: Nausea Potassium Chloride Liquid 20 meq PER TUBE Q4H Potassium Chloride Tate 10 meq IV .PER PROTOCOL PRN #0 PRN Reason: Per Protocol Potassium Chloride Tate 20 meq IV .PER PROTOCOL PRN #0 PRN Reason: Per Protocol Ranitidine Liquid [Zantac Syrup] 150 mg NG BID bottle Albuterol/Ipratropium Neb [Duoneb] 3 ml RESP TX RT Q6H DAPTOmycin [Cubicin] 500 mg IV Q24H vial Heparin Lock Flush 50 units IV PRN PRN #0 syringe PRN Reason: central line lock Magnesium Sulf Tate [Magnesium Sulfate Inj] 4 gm IV .PER PROTOCOL PRN #0 PRN Reason: Per Protocol Phenytoin Inj [Dilantin Inj] 150 mg IV Q8H vial Thiamine Inj [Vitamin B1 Inj] 100 mg IV DAILY vial Discontinued Ergocalciferol (Vitamin D2) [Vitamin D2] 50,000 unit PO Q7D Phenytoin ER Cap [Dilantin Cap] 200 mg PO TID Zinc Oxide [Zinc Oxide 40% Oint] 1 applic TOP TID Donepezil [Aricept] 5 mg PO BEDTIME - Follow Up or Referral - Forms/Instructions Exam - Constitutional Vitals: Period Temp Pulse Resp BP Sys/Frazier Pulse Ox Last 24 Hr 97.5 F-100.3 F 54-107 21-26 82-189/37-111 92-100 Discharge Results Labs on day of discharge: Labs from last 24 hours 01/02/17 01/02/17 01/02/17 06:22 04:02 04:00 WBC 7.7 D RBC 3.00 L Hgb 9.2 L Hct 28.5 L MCV 95.0 MCH 31 MCHC 32.3 RDW 15.4 Plt Count 103 L D MPV 10.8 Neut % (Auto) 71.5 Lymph % (Auto) 12.6 L Preble % (Auto) 7.4 Eos % (Auto) 6.5 Baso % (Auto) 0.1 Neut # (Auto) 5.5 Lymph # (Auto) 1.0 L Preble # (Auto) 0.6 Eos # (Auto) 0.5 Baso # (Auto) 0.0 Immature Gran % 1.9 Nucleated RBC % 0.0 Immature Gran # 0.15 Nucleated RBCs # 0.00 ABG pH ABG pCO2 ABG pO2 ABG HCO3 ABG Total CO2 ABG O2 Saturation ABG Base Excess FiO2 Sodium 146 H Potassium 3.0 L Chloride 112 H Carbon Dioxide 24 Anion Gap 13.0 BUN 54 H D Creatinine 1.30 GFR Calculation 83 BUN/Creatinine Ratio 41.00 H Glucose 122 H POC Glucose 140 H Calculated Osmolality 305.6 H Calcium 7.4 L Phosphorus 4.2 Magnesium 2.1 Total Bilirubin 6.90 H AST 90 H ALT 31 Alkaline Phosphatase 122 H Total Protein 5.8 L Albumin 1.6 L Globulin 4.2 H Albumin/Globulin Ratio 0.3 L 01/02/17 01/01/17 01/01/17 03:00 23:55 18:32 WBC RBC Hgb Hct MCV MCH MCHC RDW Plt Count MPV Neut % (Auto) Lymph % (Auto) Preble % (Auto) Eos % (Auto) Baso % (Auto) Neut # (Auto) Lymph # (Auto) Preble # (Auto) Eos # (Auto) Baso # (Auto) Immature Gran % Nucleated RBC % Immature Gran # Nucleated RBCs # ABG pH 7.408 ABG pCO2 39.4 ABG pO2 146.7 H ABG HCO3 24.3 ABG Total CO2 25.5 ABG O2 Saturation 98.6 ABG Base Excess -0.3 FiO2 40.00 Sodium Potassium Chloride Carbon Dioxide Anion Gap BUN Creatinine GFR Calculation BUN/Creatinine Ratio Glucose POC Glucose 114 H 124 H Calculated Osmolality Calcium Phosphorus Magnesium Total Bilirubin AST ALT Alkaline Phosphatase Total Protein Albumin Globulin Albumin/Globulin Ratio 01/01/17 12:06 WBC RBC Hgb Hct MCV MCH MCHC RDW Plt Count MPV Neut % (Auto) Lymph % (Auto) Preble % (Auto) Eos % (Auto) Baso % (Auto) Neut # (Auto) Lymph # (Auto) Preble # (Auto) Eos # (Auto) Baso # (Auto) Immature Gran % Nucleated RBC % Immature Gran # Nucleated RBCs # ABG pH ABG pCO2 ABG pO2 ABG HCO3 ABG Total CO2 ABG O2 Saturation ABG Base Excess FiO2 Sodium Potassium Chloride Carbon Dioxide Anion Gap BUN Creatinine GFR Calculation BUN/Creatinine Ratio Glucose POC Glucose 98 Calculated Osmolality Calcium Phosphorus Magnesium Total Bilirubin AST ALT Alkaline Phosphatase Total Protein Albumin Globulin Albumin/Globulin Ratio DS: Provider Date of admission: 12/25/16 19:42 Primary care physician: Pita Munoz MD Attending physician on admission: Phil Marley MD Consults: 12/25/16 20:14 Consult to Sleep Center [CONS] Routine Reason for Sleep Center: Sleep Center Physician Consult Comment: severe maame 12/25/16 21:02 Consult to Case Mgmt/Social Srvs [CONS] Routine Reason for Case Mgmt/Social Srvs: Rehab Consult to Pharmacy [CONS] Routine Reason for Pharmacy Consult: Dose/Manage Antibiotics Consult to Physician [CONS] Routine Comment: elevated troponin Consulting Provider: Marce Sepulveda When should Consulting Provider be notified: Now Person Notified: Dr. Sepulveda Date Notified: 12/25/16 Time Notified: 21:30 12/25/16 21:20 Consult to Pharmacy [CONS] Routine Reason for Pharmacy Consult: Adjust Meds Renal Funct 12/26/16 08:24 Consult to Physician [CONS] Routine Comment: suspecetd abcess left thigh Consulting Provider: Jonny Fuentes Consulting Provider Notified: Yes Consult to Specialist Group: Surgery When should Consulting Provider be notified: Now Person Notified: MARCE Date Notified: 12/26/16 Time Notified: 08:35 12/26/16 08:40 Consult to Wound Care - [place] [CONS] Routine Reason for Wound Care: Wound Care Management Consult Comment: Right calf wound, surgeon to assess left thigh ?abscess 12/27/16 07:35 Consult to Physician [CONS] Routine Comment: respiratory failure Consulting Provider: Isidro Lanza Consulting Provider Notified: Yes Consult to Specialist Group: Pulmonology When should Consulting Provider be notified: Now Person Notified: MAUREEN Date Notified: 12/27/16 Time Notified: 08:40 12/30/16 19:17 Consult to Dietitian [CONS] Routine Reason for Dietitian: TF-Initiate/Manage 12/31/16 07:50 Consult to Case Mgmt/Social Srvs [CONS] Routine Reason for Case Mgmt/Social Srvs: LTAC Discharging clinician: Steve Allan MD
--- NOTE | 2017-01-02 08:08 | Operative Note ---
Date of procedure: 01/02/17 Pre-op diagnosis: Respiratory failure Post-op diagnosis: other (Retained secretions and bronchitis) Procedure: The patient is in the ICU on the ventilator. He has extensive bilateral infiltrates with increased secretions. Therapeutic bronchoscopy will be done to clear airways. He is sedated on the ventilator in the ICU. Procedure: The fiberoptic bronchoscope was passed to the ET tube into the airways. The bronchopulmonary segment were identified but no specimens obtained. Findings: The ET tube is in the distal trachea. There is very thick secretions in the ET tube that were cleared with the bronchoscope. The main bronchi have very thick mucus and plugs present. There are some blood-tinged secretions present. There is considerable bronchitis present. The right upper lobe, right middle lobe, right lower lobe are all open but do have considerable bronchitis. The left upper lobe, lingula, left lower lobe are all open. Both lungs are irrigated and clear the secretions. Once the airways were clear the procedure was stopped. He tolerated the procedure fairly well without problems. Impression: Extensive bilateral infiltrates with retained secretions and bronchitis. Plan: We will continue ventilatory support. Anesthesia: conscious sedation Surgeon / Physician: Isidro Lanza Estimated blood loss: none Specimens: none sent Condition: critical Disposition: ICU Results - Labs CBC & BMP: 01/02/17 04:02 01/02/17 04:00 Discharge Plan - Discharge Medications No Action Ergocalciferol (Vitamin D2) [Vitamin D2] 50,000 unit PO Q7D Phenytoin ER Cap [Dilantin Cap] 200 mg PO TID Zinc Oxide [Zinc Oxide 40% Oint] 1 applic TOP TID Donepezil [Aricept] 5 mg PO BEDTIME - Follow Up or Referral - Forms/Instructions
--- NOTE | 2017-01-02 08:21 | Cardiology Progress Note ---
Assessment and Plan (1) Septic shock Status: Resolved Assessment and plan: 56y NAM, morbid presented with septic shock, due to lower extremity cellulitis. Cardiac biomarkers suggestive of myocardial injury, without ischemic EKG changes. Initially, had prolonged QTC, resolved with improved metabolic status. Comorbities- obstructive sleep apnea, morbid obesity, alcohol abuse, seizures, CRISTOPHER resolved, thrombocytopenia, anemia. -Cardiac injury. No ACS. LVEF was preserved, 65%. He had severe metabolic derangement and hypotension. Hemodynamics improved. He will need ischemic evaluation, once recovers from acute issues. -Start Coreg 3.125 mg bid. Off pressor. No recurrence of malignant arrhythmia. Increased dose of beta-corby, as tolerated by blood pressure -Continue aspirin. -Hold off statin due to his comorbidities. -Continue to monitor and replete electrolytes, avoid QTC prolonging agents. Current Visit: Yes (2) History of seizures Status: Chronic Current Visit: Yes (3) Hypotension Status: Resolved Current Visit: Yes (4) Cellulitis of right lower extremity Status: Resolved Current Visit: Yes (5) Confusion Status: Acute Current Visit: Yes (6) Elevated troponin Status: Acute Current Visit: Yes (7) Thrombocytopenia Status: Acute Current Visit: Yes (8) ANDRIA (obstructive sleep apnea) Status: Chronic Current Visit: Yes (9) Cirrhosis Status: Acute Current Visit: Yes (10) Hypokalemia Status: Acute Current Visit: Yes (11) Respiratory failure Status: Acute Current Visit: Yes Qualifiers: Chronicity: acute on chronic Respiratory failure complication: hypoxia and hypercapnia Qualified Code(s): J96.21 - Acute and chronic respiratory failure with hypoxia; J96.22 - Acute and chronic respiratory failure with hypercapnia Cardiology - PN: Subj Interval history: Blood pressure is borderline. Off pressors. No recurrence of sustained ventricular arrhythmia. Exam (Progress Note) - Constitutional Vitals: Period Temp Pulse Resp BP Sys/Frazier Pulse Ox Last 24 Hr 97.5 F-100.3 F 54-101 21-28 82-134/37-63 92-100 General appearance: morbidly obese - Head Head exam: Present: normal inspection - Eye Eye exam: Absent: periorbital swelling - ENT ENT exam: Present: normal external ear exam - Neck Neck exam: Present: normal inspection. Absent: tenderness - Respiratory Respiratory exam: Present: clear to auscultation bilaterally - Cardiovascular Cardiovascular exam: Present: regular rate and rhythm. Absent: gallop - GI/Abdominal GI/Abdominal exam: Present: hypoactive bowel sounds. Absent: distended - Extremities Exam Extremities exam: Present: normal inspection, normal capillary refill, edema (1+ ) - Neurological Exam Neurological exam: Present: other (Unresponsive) - Skin Skin exam: Present: normal color, warm. Absent: cyanosis Result/EKG - Labs CBC & BMP: 01/02/17 04:02 01/02/17 04:00 Lab Results: I have reviewed the past 24 hour labs Labs: Laboratory Results - last 24 hr 01/01/17 01/01/17 01/01/17 12:06 18:32 23:55 WBC RBC Hgb Hct MCV MCH MCHC RDW Plt Count MPV Neut % (Auto) Lymph % (Auto) Mcleod % (Auto) Eos % (Auto) Baso % (Auto) Neut # (Auto) Lymph # (Auto) Mcleod # (Auto) Eos # (Auto) Baso # (Auto) Immature Gran % Nucleated RBC % Immature Gran # Nucleated RBCs # ABG pH ABG pCO2 ABG pO2 ABG HCO3 ABG Total CO2 ABG O2 Saturation ABG Base Excess FiO2 Sodium Potassium Chloride Carbon Dioxide Anion Gap BUN Creatinine GFR Calculation BUN/Creatinine Ratio Glucose POC Glucose 98 124 H 114 H Calculated Osmolality Calcium Phosphorus Magnesium Total Bilirubin AST ALT Alkaline Phosphatase Total Protein Albumin Globulin Albumin/Globulin Ratio 01/02/17 01/02/17 01/02/17 03:00 04:00 04:02 WBC 7.7 D RBC 3.00 L Hgb 9.2 L Hct 28.5 L MCV 95.0 MCH 31 MCHC 32.3 RDW 15.4 Plt Count 103 L D MPV 10.8 Neut % (Auto) 71.5 Lymph % (Auto) 12.6 L Mcleod % (Auto) 7.4 Eos % (Auto) 6.5 Baso % (Auto) 0.1 Neut # (Auto) 5.5 Lymph # (Auto) 1.0 L Mcleod # (Auto) 0.6 Eos # (Auto) 0.5 Baso # (Auto) 0.0 Immature Gran % 1.9 Nucleated RBC % 0.0 Immature Gran # 0.15 Nucleated RBCs # 0.00 ABG pH 7.408 ABG pCO2 39.4 ABG pO2 146.7 H ABG HCO3 24.3 ABG Total CO2 25.5 ABG O2 Saturation 98.6 ABG Base Excess -0.3 FiO2 40.00 Sodium 146 H Potassium 3.0 L Chloride 112 H Carbon Dioxide 24 Anion Gap 13.0 BUN 54 H D Creatinine 1.30 GFR Calculation 83 BUN/Creatinine Ratio 41.00 H Glucose 122 H POC Glucose Calculated Osmolality 305.6 H Calcium 7.4 L Phosphorus 4.2 Magnesium 2.1 Total Bilirubin 6.90 H AST 90 H ALT 31 Alkaline Phosphatase 122 H Total Protein 5.8 L Albumin 1.6 L Globulin 4.2 H Albumin/Globulin Ratio 0.3 L 01/02/17 06:22 WBC RBC Hgb Hct MCV MCH MCHC RDW Plt Count MPV Neut % (Auto) Lymph % (Auto) Mcleod % (Auto) Eos % (Auto) Baso % (Auto) Neut # (Auto) Lymph # (Auto) Mcleod # (Auto) Eos # (Auto) Baso # (Auto) Immature Gran % Nucleated RBC % Immature Gran # Nucleated RBCs # ABG pH ABG pCO2 ABG pO2 ABG HCO3 ABG Total CO2 ABG O2 Saturation ABG Base Excess FiO2 Sodium Potassium Chloride Carbon Dioxide Anion Gap BUN Creatinine GFR Calculation BUN/Creatinine Ratio Glucose POC Glucose 140 H Calculated Osmolality Calcium Phosphorus Magnesium Total Bilirubin AST ALT Alkaline Phosphatase Total Protein Albumin Globulin Albumin/Globulin Ratio
[2017-01-02] MEDS: POTASSIUM CHLORIDE 20 MEQ/15 ML UDCUP PER TUBE SCH ×4 (08:28→20:17)
[2017-01-02] MEDS: THIAMINE 200 MG/2 ML VIAL IV SCH (09:58)
[2017-01-02] MEDS: LACTULOSE 20 GM/30 ML UDCUP PER TUBE SCH ×2 (11:41→20:17)
[2017-01-02] MEDS: CARVEDILOL 3.125 MG TABLET PO SCH ×2 (11:41→20:17)
[2017-01-02] MEDS: RANITIDINE 150 MG/10 ML 30 ML BOTTLE NG SCH ×2 (11:41→20:18)
[2017-01-02] MEDS: ASPIRIN EC 325 MG TABLET PO SCH (11:41)
--- NOTE | 2017-01-02 12:02 | Consultation ---
Assessment and Plan - Time spent with patient Time spent with patient: Less than 30 minutes (1) Ventilator dependence Status: Acute Assessment and plan: I recommend tracheostomy tube placement be performed tomorrow in surgery risks and benefits were discussed with the and they desired to proceed with surgery that will be put on the schedule Thank you very much for this consult Current Visit: Yes (2) Respiratory failure Status: Acute Current Visit: Yes Qualifiers: Chronicity: acute on chronic Respiratory failure complication: hypoxia and hypercapnia Qualified Code(s): J96.21 - Acute and chronic respiratory failure with hypoxia; J96.22 - Acute and chronic respiratory failure with hypercapnia History of Present Illness - Data of Consult Patient: new to practice Consult date: 01/02/17 Requesting Physician: Isidro Lanza - Consult Narrative Reason for consult: Ventilator dependent respiratory failure History of present illness: Mr. 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 CC: Steve Allan MD - Home Medications and Allergies Home Medications: Home Medications Medication Instructions Recorded Confirmed Type Albuterol Neb [Proventil Neb] 2.5 mg RESP TX RT Q1H PRN #0 01/02/17 Rx Albuterol/Ipratropium Neb [Duoneb] 3 ml RESP TX RT Q6H 01/02/17 Rx Aspirin EC Tab 325 mg PO DAILY tablet 01/02/17 Rx Aztreonam [Azactam] 2,000 mg IV Q8H vial 01/02/17 Rx DAPTOmycin [Cubicin] 500 mg IV Q24H vial 01/02/17 Rx Dextrose 50% [D50] 25 gm IV PRN PRN #0 vial 01/02/17 Rx Diazepam Inj [Valium Inj] 10 mg IV Q6H syringe 01/02/17 Rx Furosemide Tab [Lasix Tab] 40 mg PER TUBE DAILY tablet 01/02/17 Rx Glucagon 1 mg IM PRN PRN #0 vial 01/02/17 Rx Heparin Lock Flush 50 units IV PRN PRN #0 syringe 01/02/17 Rx Insulin Regular [HumuLIN R] See Protocol SUBCUT Q6HR unit 01/02/17 Rx LORazepam INJ [Ativan Inj] 1 mg IV Q4H PRN #0 vial 01/02/17 Rx Lactulose Liquid [Chronulac] 20 gm PER TUBE BID 01/02/17 Rx Magnesium Sulf Tate [Magnesium 2 gm IV .PER PROTOCOL PRN #0 01/02/17 Rx Sulfate Inj] Magnesium Sulf Tate [Magnesium 4 gm IV .PER PROTOCOL PRN #0 01/02/17 Rx Sulfate Inj] Metoclopramide Inj [Reglan Inj] 5 mg IV Q6HR vial 01/02/17 Rx Norepinephrine [Levophed] 8 mg IV TITRATE vial 01/02/17 Rx Ondansetron Inj [Zofran Inj] 4 mg IV Q4H PRN #0 vial 01/02/17 Rx Phenytoin Inj [Dilantin Inj] 150 mg IV Q8H vial 01/02/17 Rx Potassium Chloride Liquid 20 meq PER TUBE Q4H 01/02/17 Rx Potassium Chloride Tate 10 meq IV .PER PROTOCOL PRN #0 01/02/17 Rx Potassium Chloride Tate 20 meq IV .PER PROTOCOL PRN #0 01/02/17 Rx Ranitidine Liquid [Zantac Syrup] 150 mg NG BID bottle 01/02/17 Rx Thiamine Inj [Vitamin B1 Inj] 100 mg IV DAILY vial 01/02/17 Rx Allergies/Adverse Reactions: Allergies Allergy/AdvReac Type Severity Reaction Status Date / Time No Known Allergies Allergy Verified 12/25/16 18:16 ROS unobtainable: due to endotracheal tube Medical,Surgical,& Family Hx - Medical History Medical History: noncontributory Cardio: No history of: Hypertension Neurology: History of: Cerebrovascular Accident, Seizures Endocrine: No history of: Diabetes Mellitus (NIDDM) Respiratory: History of: Obstructive Sleep Apnea No history of: COPD Other: History of: Skin Problems (cellulitis) - Surgical History Abdominal Surgeries: Surgical HX of: Hernia Repair - Family History Family History: Reports;: Family Diabetes - Social History Smoking Status: Never smoker Frequency of Alcohol Use: Frequently Type of Drug Use: None Exam - Constitutional Vitals: Period Temp Pulse Resp BP Sys/Frazier Pulse Ox Last 24 Hr 97.2 F-99.6 F 54-73 21-28 80-116/37-60 92-100 General appearance: no acute distress, over weight, other (Intubated and sedated ) - Head Head exam: Present: normal inspection, other (Facial edema mild secondary to traumatic intubation per reports) - ENT ENT exam: Present: normal exam, normal external ear exam, normal oropharynx, other (Overall unobscured head and neck exam secondary to facial edema endotracheal tube and nasogastric tube but no gross masses or lesions or areas of concern) - Neck Neck exam: Present: normal inspection - Respiratory Respiratory exam: Present: other (Currently on the ventilator) - GI/Abdominal GI/Abdominal exam: Present: soft (Obese) - Neurological Exam Neurological exam: Present: other (Sedated on the ventilator) - Psychiatric Psychiatric exam: Present: other (Sedated on the ventilator) - Skin Skin exam: Present: normal color, warm Results - Labs CBC & BMP: 01/02/17 04:02 01/02/17 04:00 Lab Results: I have reviewed the past 24 hour labs
[2017-01-02] MEDS: DESITIN 4OZ/NYSTATIN 15 GRAM MIXTURE PASTE TOP SCH ×2 (14:16→20:18)
[2017-01-02] MEDS: MULTIVITAMIN INJ 10 ML in DEXTROSE 5% 1,000 ML IV SCH (17:58)
[2017-01-02] MEDS: NOREPINEPHRINE 8 MG in SODIUM CHLORIDE 0.9% 242 ML IV SCH (23:19)
[2017-01-03] MEDS: INSULIN REGULAR 100 UNIT/ML SUBCUT SCH ×5 (00:08→23:57)
[2017-01-03] MEDS: METOCLOPRAMIDE 10 MG/2 ML VIAL IV SCH ×5 (00:08→23:57)
[2017-01-03] MEDS: AZTREONAM 2,000 MG in SODIUM CHLORIDE 0.9% 100 ML IV SCH ×4 (00:08→23:57)
[2017-01-03] MEDS: ALBUTEROL/IPRATROPIUM 3 ML NEB RESP TX SCH ×4 (01:04→19:38)
[2017-01-03] MEDS: DIAZEPAM 10 MG/2 ML SYRINGE IV SCH ×4 (02:00→20:36)
[2017-01-03 03:21] LABS: ABG Base Excess -0.5 MMOL/L (-2.5-2.5); ABG HCO3 23.7 MMOL/L (20-26); ABG PCO2 37.8 MM HG (35-48); ABG PH 7.415 (7.35-7.45); ABG PO2 103.7 MM HG (80-95); ABG TCO2 24.9 MMOL/L (23-27); Allen Test Positive; Pt O2 Delivery Device Ventilator
[2017-01-03 03:23] LABS: ABG Oxygen Saturation 97.8 % (95-100)
[2017-01-03 04:56] LABS: Calcium 7.4 MG/DL (8.5-10.1); Magnesium 2.3 MG/DL (1.8-2.4); Osmolality,Calculated 305.4 MOS/KG (273-304); Potassium 3.9 MMOL/L (3.5-5.1)
[2017-01-03 05:19] LABS: Basophils % 0.3 % (0.0-0.8); Eosinophils # 0.6 10*3/uL (0.0-0.87); Eosinophils % 8.1 % (0.00-10.9); Hematocrit 29.5 VOL% (42.0-52.0); Hemoglobin 9.8 GM/DL (14.0-18.0); Immature Granulocytes % 1.7 %; Immature Granulocytes Absolute 0.12 #; Lymphocytes % 13.9 % (21.2-54.2); Mean Corpuscular HGB Conc 33.2 GM/DL (32-36); Mean Corpuscular Hemoglobin 31 PG (27-34); Mean Corpuscular Volume 92.5 FL (87-102); Mean Platelet Volume 10.3 FL (9.6-12.0); Monocytes # 0.9 10*3/uL (0.11-0.8); Monocytes % 12.2 % (1.7-12.7); Neutrophils # 4.5 10*3/uL (1.4-7.4); Neutrophils % 63.8 % (38.7-73.9); Platelet Count 143 T/CUMM (130-400); Red Blood Count 3.19 MC/CUMM (3.8-5.5); Red Cell Distribution Width 15.8 % (9.3-17.3); White Blood Count 7.1 T/CUMM (4-12)
[2017-01-03] MEDS: POTASSIUM CHLORIDE RIDER 20 MEQ in PREMIX 1 EACH IV PRN (06:18)
[2017-01-03] MEDS: PHENYTOIN 100 MG/2 ML VIAL IV SCH ×3 (06:19→21:00)
--- NOTE | 2017-01-03 06:29 | Pulmonology Progress Note ---
Pulmonary - PN: Subj Interval history: Patient is a 56-year-old that came in with septic shock and hypotension. He is felt to have a component of cirrhosis. He has cellulitis of his leg. He has a past history of having a CVA and seizures. He has been poorly responsive and having worsening respiratory insufficiency and CO2 retention. He has developed extensive bilateral infiltrates. He has been sedated on the ventilator. He is off Levophed now. He is scheduled to get a tracheostomy tube today. After that he will probably go to [facility]. He still has bilateral infiltrates and relative hypoxemia. We will try to lower his PEEP a little. Exam (Progress Note) - Constitutional Vitals: Period Temp Pulse Resp BP Sys/Frazier Pulse Ox Last 24 Hr 97.2 F-99.6 F 51-71 12-28 80-123/37-73 93-98 Exam: General appearance: over weight, other (He is sedated and comfortable on the ventilator. His edema is better and he is fairly stable on the ventilator) - Head Head exam: Present: normal inspection, normocephalic - Eye Eye exam: Present: EOMI, scleral icterus Pupils: Present: GAYLE - ENT ENT exam: Present: The ET tube is in good position. He has less facial swelling now. - Neck Neck exam: Present: He has a very short large neck - Respiratory Respiratory exam: Present: He has good breath sounds bilaterally but he still has coarse breath sounds with bilateral rhonchi. - Cardiovascular Cardiovascular exam: Present: regular rate and rhythm. Absent: gallop, systolic murmur - GI/Abdominal GI/Abdominal exam: Present: distended, normal bowel sounds, soft. He has a BMS system in place. He has not been tolerating tube feedings very well. Absent: organomegaly, tenderness - Extremities Exam Extremities exam: Present: edema (There is brawny edema of the lower extremities ). Absent: calf tenderness - Neurological Exam Neurological exam: Present: altered (He is arousable and requires sedation.) - Skin Skin exam: Present: warm, dry Results - Labs CBC & BMP: 01/03/17 04:10 01/03/17 04:10 Labs: PO2 is 103 with a PCO2 of 37 and pH of 7.41 - Diagnostic Findings Procedure: Chest x-ray: image reviewed by me, report reviewed by me (Chest x- ray still shows extensive infiltrates) Assessment and Plan (1) History of seizures Status: Chronic Assessment and plan: The patient has had a CVA and history of seizures and is on Dilantin. He does respond okay. Current Visit: Yes (2) Acute renal failure Status: Resolved Assessment and plan: Patient came in with some renal insufficiency but his creatinine has been better. His creatinine is down to 1.0 today. Current Visit: Yes (3) Cellulitis of right lower extremity Status: Resolved Assessment and plan: Patient has edema and cellulitis of his legs. His legs are wrapped and stable. Current Visit: Yes (4) Septic shock Status: Resolved Assessment and plan: Patient originally presented with hypotension and some component of shock. He is off pressors now and his blood pressure stable. Current Visit: Yes (5) Cirrhosis Status: Acute Assessment and plan: The patient is getting more jaundiced and possibly has some hepatic encephalopathy. Ammonia level is down. He does have a bilirubin of 6.9. Current Visit: Yes (6) ANDRIA (obstructive sleep apnea) Status: Chronic Assessment and plan: The patient is on the ventilator at present. He will get a tracheostomy tube today. Current Visit: Yes (7) Respiratory failure Status: Acute Assessment and plan: The patient had respiratory failure and is now on the ventilator. He still has extensive infiltrates. He will get a tracheostomy tube today. Current Visit: Yes Qualifiers: Chronicity: acute on chronic Respiratory failure complication: hypoxia and hypercapnia Qualified Code(s): J96.21 - Acute and chronic respiratory failure with hypoxia; J96.22 - Acute and chronic respiratory failure with hypercapnia
--- NOTE | 2017-01-03 07:34 | XRay Report ---
Referring Physician: Steve Allan Exam: XR chest 1V portable Date: January 03, 2017 at 3:12 AM Reason: Shortness of breath Comparison: Chest one view portable January 02, 2017 Findings: A right-sided central venous catheter, endotracheal tube and feeding tube are again in place. The heart is largely obscured by diffuse pulmonary opacities. These opacities could represent pulmonary edema and/or pneumonia. No pneumothorax is identified, but mild bilateral pleural fluid is suspected. The osseous structures appear stable. Impression: There are again prominent opacities within both lungs which have overall slightly increased bilaterally. PROCEDURE INTERPRETED AT [facility] DEPARTMENT OF RADIOLOGY Final Report Signed by: Dr. Beti Blair
[2017-01-03] MEDS: PROPOFOL 1,000 MG/100 ML BOTTLE IV SCH ×2 (07:45→18:30)
--- NOTE | 2017-01-03 08:41 | Hospitalist Progress Note ---
Assessment and Plan (1) Respiratory failure Status: Acute Assessment and plan: The patient is admitted to the hospital with respiratory failure. The patient' s pulmonary edema worsened due to fluid resuscitation he is now requiring mechanical ventilation. The patient's infection is improving with treatment including IV antibiotics of aztreonam and daptomycin. The patient will continue on Lasix enterally with a daily dose. Will recheck electrolytes tomorrow. The patient is scheduled for tracheostomy today and is accepted for transfer to [facility]. Current Visit: Yes Qualifiers: Chronicity: acute on chronic Respiratory failure complication: hypoxia and hypercapnia Qualified Code(s): J96.21 - Acute and chronic respiratory failure with hypoxia; J96.22 - Acute and chronic respiratory failure with hypercapnia (2) Hypotension Status: Resolved Current Visit: Yes (3) History of seizures Status: Chronic Current Visit: Yes (4) Anasarca associated with disorder of kidney Status: Acute Current Visit: Yes (5) Cellulitis of right lower extremity Status: Resolved Current Visit: Yes (6) Septic shock Status: Resolved Current Visit: Yes Hospitalist: Subjective Interval history: The patient had no new events overnight. The patient is scheduled for tracheostomy today. Exam - Constitutional Vitals: Period Temp Pulse Resp BP Sys/Frazier Pulse Ox Last 24 Hr 98.2 F-99.6 F 51-71 12-24 81-123/41-73 93-98 Exam: Constitutional System: No distress. No tremulousness. The patient is orally intubated and mechanically ventilated. He is sedated with Diprivan Head: Normocephalic, atraumatic. Ears, Nose and Throat System: No evidence of Otitis or Mastoiditis. No epistaxis or discharge Eyes System: Pupils equal, round, and reactive. Extraocular muscles intact. Neck: Supple, without adenopathy, 1+ jugular venous distention. No thyromegaly , neck mass, or prior surgery apparent. Respiratory System: Chest rales in dependent areas to auscultation. Cardiovascular System: Heart with regular rate and rhythm. No murmur. GI System: Abdomen obese, soft, nontender. Hypo-active bowel sounds present. Musculoskeletal System: limbs with 1+ pedal edema and cellulitis. Full distal pulses. Neurological System: Exam not possible due to sedation Results - Labs CBC & BMP: 01/03/17 04:10 01/03/17 04:10 Lab Results: I have reviewed the past 24 hour labs
[2017-01-03] MEDS ORDERED: VECURONIUM 10 MG VIAL IV ONE (08:55)
[2017-01-03] MEDS: CARVEDILOL 3.125 MG TABLET PO SCH ×2 (09:00→21:00)
[2017-01-03] MEDS ORDERED: SEVOFLURANE 1 UNIT/15 MINUTE INH ONE (10:01)
[2017-01-03] MEDS: DESITIN 4OZ/NYSTATIN 15 GRAM MIXTURE PASTE TOP SCH ×2 (11:00→21:00)
[2017-01-03] MEDS: LACTULOSE 20 GM/30 ML UDCUP PER TUBE SCH ×2 (11:15→21:00)
[2017-01-03] MEDS: ASPIRIN EC 325 MG TABLET PO SCH (11:15)
[2017-01-03] MEDS: FUROSEMIDE 40 MG TABLET PER TUBE SCH (11:15)
[2017-01-03] MEDS: RANITIDINE 150 MG/10 ML 30 ML BOTTLE NG SCH ×2 (11:15→21:05)
[2017-01-03] MEDS: THIAMINE 200 MG/2 ML VIAL IV SCH (11:15)
--- NOTE | 2017-01-03 12:15 | Anesthesia ---
Anesthesia Post OP - Post Ansesthetic Evaluation Patient seen in post op: Yes Resp: within normal limits CV: within normal limits Mental: within normal limits Temp: within normal limits [id number]: within normal limits Nausea and Vomiting: within normal limits Pain: within normal limits
--- NOTE | 2017-01-03 14:13 | Cardiology Progress Note ---
Assessment and Plan (1) Septic shock Status: Resolved Assessment and plan: 56y DAVID, morbid presented with septic shock, due to lower extremity cellulitis. Cardiac biomarkers suggestive of myocardial injury, without ischemic EKG changes. Initially, had prolonged QTC, resolved with improved metabolic status. Comorbities- obstructive sleep apnea, morbid obesity, alcohol abuse, seizures, CRISTOPHER resolved, thrombocytopenia, anemia. -Cardiac injury. No ACS. LVEF was preserved, 65%. He had severe metabolic derangement and hypotension. Hemodynamics improved. He will need ischemic evaluation, once recovers from acute issues. -Cont Coreg 3.125 mg bid. Still borderline blood pressure. Once improves, we will increase beta-corby. -Hold off statin due to his comorbidities. -Continue to monitor and replete electrolytes, avoid QTC prolonging agents. -He has significant peripheral edema. Sodium increasing. With his borderline blood pressure, I suspect intravascular volume depletion. Continue low-dose Lasix. Alb/prealb low, osm high. If trend continues, we may need to hold the Lasix for a while. Current Visit: Yes (2) History of seizures Status: Chronic Current Visit: Yes (3) Hypotension Status: Resolved Current Visit: Yes (4) Cellulitis of right lower extremity Status: Resolved Current Visit: Yes (5) Confusion Status: Acute Current Visit: Yes (6) Elevated troponin Status: Acute Current Visit: Yes (7) Thrombocytopenia Status: Acute Current Visit: Yes (8) ANDRIA (obstructive sleep apnea) Status: Chronic Current Visit: Yes (9) Cirrhosis Status: Acute Current Visit: Yes (10) Hypokalemia Status: Acute Current Visit: Yes (11) Respiratory failure Status: Acute Current Visit: Yes Qualifiers: Chronicity: acute on chronic Respiratory failure complication: hypoxia and hypercapnia Qualified Code(s): J96.21 - Acute and chronic respiratory failure with hypoxia; J96.22 - Acute and chronic respiratory failure with hypercapnia Cardiology - PN: Subj Interval history: Blood pressure slightly improved, right now he is off pressors but had to be on a low-dose support recently. No recurrence of sustained arrhythmia. Sodium now elevated. Exam (Progress Note) - Constitutional Vitals: Period Temp Pulse Resp BP Sys/Frazier Pulse Ox Last 24 Hr 98.2 F-99.6 F 51-82 12-25 81-157/41-79 89-100 General appearance: morbidly obese - Head Head exam: Present: normal inspection - Eye Eye exam: Absent: periorbital swelling, laceration to eyelids - ENT ENT exam: Present: normal external ear exam - Neck Neck exam: Present: other (Thick neck) - Respiratory Respiratory exam: Present: clear to auscultation bilaterally. Absent: wheezes - Cardiovascular Cardiovascular exam: Present: regular rate and rhythm - GI/Abdominal GI/Abdominal exam: Present: hypoactive bowel sounds - Extremities Exam Extremities exam: Present: normal inspection, normal capillary refill, edema (3+ ) - Neurological Exam Neurological exam: Present: other (unresponsive) - Skin Skin exam: Present: normal color, warm. Absent: cyanosis Result/EKG - Labs CBC & BMP: 01/03/17 04:10 01/03/17 04:10 Lab Results: I have reviewed the past 24 hour labs Labs: Laboratory Results - last 24 hr 01/02/17 01/03/17 01/03/17 17:49 00:01 03:10 WBC RBC Hgb Hct MCV MCH MCHC RDW Plt Count MPV Neut % (Auto) Lymph % (Auto) Rankin % (Auto) Eos % (Auto) Baso % (Auto) Neut # (Auto) Lymph # (Auto) Rankin # (Auto) Eos # (Auto) Baso # (Auto) Immature Gran % Nucleated RBC % Immature Gran # Nucleated RBCs # ABG pH 7.415 ABG pCO2 37.8 ABG pO2 103.7 H ABG HCO3 23.7 ABG Total CO2 24.9 ABG O2 Saturation 97.8 ABG Base Excess -0.5 FiO2 40.00 Sodium Potassium Chloride Carbon Dioxide Anion Gap BUN Creatinine GFR Calculation BUN/Creatinine Ratio Glucose POC Glucose 97 116 H Calculated Osmolality Calcium Magnesium 01/03/17 01/03/17 01/03/17 04:10 04:10 05:37 WBC 7.1 RBC 3.19 L Hgb 9.8 L Hct 29.5 L MCV 92.5 MCH 31 MCHC 33.2 RDW 15.8 Plt Count 143 D MPV 10.3 Neut % (Auto) 63.8 Lymph % (Auto) 13.9 L Rankin % (Auto) 12.2 Eos % (Auto) 8.1 Baso % (Auto) 0.3 Neut # (Auto) 4.5 Lymph # (Auto) 1.0 L Rankin # (Auto) 0.9 H Eos # (Auto) 0.6 Baso # (Auto) 0.0 Immature Gran % 1.7 Nucleated RBC % 0.0 Immature Gran # 0.12 Nucleated RBCs # 0.00 ABG pH ABG pCO2 ABG pO2 ABG HCO3 ABG Total CO2 ABG O2 Saturation ABG Base Excess FiO2 Sodium 147 H Potassium 3.9 Chloride 114 H Carbon Dioxide 25 Anion Gap 11.9 BUN 51 H Creatinine 1.00 GFR Calculation 115 BUN/Creatinine Ratio 51.00 H Glucose 92 POC Glucose 87 Calculated Osmolality 305.4 H Calcium 7.4 L Magnesium 2.3 01/03/17 11:24 WBC RBC Hgb Hct MCV MCH MCHC RDW Plt Count MPV Neut % (Auto) Lymph % (Auto) Rankin % (Auto) Eos % (Auto) Baso % (Auto) Neut # (Auto) Lymph # (Auto) Rankin # (Auto) Eos # (Auto) Baso # (Auto) Immature Gran % Nucleated RBC % Immature Gran # Nucleated RBCs # ABG pH ABG pCO2 ABG pO2 ABG HCO3 ABG Total CO2 ABG O2 Saturation ABG Base Excess FiO2 Sodium Potassium Chloride Carbon Dioxide Anion Gap BUN Creatinine GFR Calculation BUN/Creatinine Ratio Glucose POC Glucose 93 Calculated Osmolality Calcium Magnesium - EKG EKG results: interpreted by me
[2017-01-03] MEDS: NOREPINEPHRINE 8 MG in SODIUM CHLORIDE 0.9% 242 ML IV SCH (22:48)
[2017-01-04] MEDS: ALBUTEROL/IPRATROPIUM 3 ML NEB RESP TX SCH ×4 (00:40→19:26)
[2017-01-04] MEDS: PROPOFOL 1,000 MG/100 ML BOTTLE IV SCH ×5 (01:35→22:08)
[2017-01-04] MEDS: DIAZEPAM 10 MG/2 ML SYRINGE IV SCH ×4 (01:35→21:36)
[2017-01-04 03:46] LABS: Pt O2 Delivery Device Ventilator
[2017-01-04 03:47] LABS: ABG Base Excess -0.2 MMOL/L (-2.5-2.5); ABG HCO3 24.2 MMOL/L (20-26); ABG Oxygen Saturation 92.6 % (95-100); ABG PCO2 41.5 MM HG (35-48); ABG PH 7.385 (7.35-7.45); ABG TCO2 22.5 MMOL/L (23-27)
[2017-01-04 04:21] LABS: Basophils % 0.2 % (0.0-0.8); Eosinophils # 0.4 10*3/uL (0.0-0.87); Hematocrit 31.4 VOL% (42.0-52.0); Hemoglobin 10.1 GM/DL (14.0-18.0); Immature Granulocytes % 1.1 %; Immature Granulocytes Absolute 0.09 #; Lymphocytes # 0.6 10*3/uL (1.4-4.0); Lymphocytes % 7.6 % (21.2-54.2); Mean Corpuscular HGB Conc 32.2 GM/DL (32-36); Mean Corpuscular Hemoglobin 30 PG (27-34); Mean Corpuscular Volume 94.6 FL (87-102); Mean Platelet Volume 10.2 FL (9.6-12.0); Monocytes # 0.7 10*3/uL (0.11-0.8); Monocytes % 7.9 % (1.7-12.7); NRBC # 0.02 10*3/uL; Neutrophils # 6.5 10*3/uL (1.4-7.4); Neutrophils % 78.2 % (38.7-73.9); Platelet Count 169 T/CUMM (130-400); Red Blood Count 3.32 MC/CUMM (3.8-5.5); Red Cell Distribution Width 16.7 % (9.3-17.3); White Blood Count 8.4 T/CUMM (4-12)
[2017-01-04 04:41] LABS: Calcium 7.5 MG/DL (8.5-10.1); Osmolality,Calculated 309.1 MOS/KG (273-304); Potassium 4.1 MMOL/L (3.5-5.1)
[2017-01-04] MEDS: METOCLOPRAMIDE 10 MG/2 ML VIAL IV SCH ×3 (05:35→17:45)
[2017-01-04] MEDS: PHENYTOIN 100 MG/2 ML VIAL IV SCH ×3 (05:36→21:37)
[2017-01-04] MEDS: INSULIN REGULAR 100 UNIT/ML SUBCUT SCH ×3 (05:58→17:30)
--- NOTE | 2017-01-04 07:26 | XRay Report ---
XR chest 1V portable Indication: Respiratory failure. Chest one view: Comparison yesterday shows new tracheostomy. Central line, cardiomegaly and fluffy diffuse alveolar consolidation of both lungs appears stable. Lungs are better inflated than previous with improved inspiration noted. Impression: Improved inspiration of the lungs, but continued diffuse interstitial lung disease, likely ARDS. Tracheostomy. PROCEDURE INTERPRETED AT [facility] DEPARTMENT OF RADIOLOGY Final Report Signed by: David Luevano M.D.
--- NOTE | 2017-01-04 08:41 | Hospitalist Progress Note ---
Assessment and Plan (1) Respiratory failure Status: Acute Assessment and plan: The patient is admitted to the hospital with respiratory failure. The patient' s pulmonary edema worsened due to fluid resuscitation he is now requiring mechanical ventilation. The patient's infection is improving with treatment including IV antibiotics of aztreonam and daptomycin. The patient had become mildly volume depleted so I reduced the dose of Lasix yesterday to a once daily enteral dose. Creatinine is stabilized and BUN improving. Will recheck electrolytes tomorrow. The patient had tracheostomy yesterday and is accepted for transfer to [facility]. I am hoping the patient can go to [facility] on Friday Current Visit: Yes Qualifiers: Chronicity: acute on chronic Respiratory failure complication: hypoxia and hypercapnia Qualified Code(s): J96.21 - Acute and chronic respiratory failure with hypoxia; J96.22 - Acute and chronic respiratory failure with hypercapnia (2) Hypotension Status: Resolved Current Visit: Yes (3) History of seizures Status: Chronic Current Visit: Yes (4) Anasarca associated with disorder of kidney Status: Acute Current Visit: Yes (5) Cellulitis of right lower extremity Status: Resolved Current Visit: Yes (6) Septic shock Status: Resolved Current Visit: Yes Hospitalist: Subjective Interval history: The patient had tracheostomy yesterday. The patient has marginal gas exchange. The patient had no complications overnight and is resting well. The patient is tolerating tube feeding at goal rate. Exam - Constitutional Vitals: Period Temp Pulse Resp BP Sys/Frazier Pulse Ox Last 24 Hr 97.9 F-100.6 F 68-95 22-30 93-157/45-79 88-99 Exam: Constitutional System: No distress. No tremulousness. The patient is intubated via tracheostomy and mechanically ventilated. He is sedated with Diprivan Head: Normocephalic, atraumatic. Ears, Nose and Throat System: No evidence of Otitis or Mastoiditis. No epistaxis or discharge Eyes System: Pupils equal, round, and reactive. Extraocular muscles intact. Neck: Supple, without adenopathy, 1+ jugular venous distention. No thyromegaly , neck mass, or prior surgery apparent. Respiratory System: Chest rhonchi in dependent areas to auscultation. Cardiovascular System: Heart with regular rate and rhythm. No murmur. GI System: Abdomen obese, soft, nontender. Hypo-active bowel sounds present. Musculoskeletal System: limbs with 1+ pedal edema and cellulitis. Full distal pulses. Neurological System: Exam not possible due to sedation Results - Labs CBC & BMP: 01/04/17 03:40 01/04/17 03:40 Lab Results: I have reviewed the past 24 hour labs
[2017-01-04] MEDS: RANITIDINE 150 MG/10 ML 30 ML BOTTLE NG SCH ×2 (09:15→21:36)
[2017-01-04] MEDS: LACTULOSE 20 GM/30 ML UDCUP PER TUBE SCH ×2 (09:15→21:34)
[2017-01-04] MEDS: AZTREONAM 2,000 MG in SODIUM CHLORIDE 0.9% 100 ML IV SCH ×2 (09:15→16:30)
[2017-01-04] MEDS: ASPIRIN EC 325 MG TABLET PO SCH (09:15)
[2017-01-04] MEDS: THIAMINE 200 MG/2 ML VIAL IV SCH (09:15)
[2017-01-04] MEDS: FUROSEMIDE 40 MG TABLET PER TUBE SCH (09:15)
[2017-01-04] MEDS: CARVEDILOL 3.125 MG TABLET PO SCH ×2 (09:15→21:34)
--- NOTE | 2017-01-04 09:35 | Pulmonology Progress Note ---
Pulmonary - PN: Subj Interval history: This is a 56-year-old male patient whom I am seeing for Dr. Ravi Lanza. This patient has cirrhosis of the liver. He was admitted in respiratory distress and required intubation. Intubation was difficult and he had a lot of swelling. She had diffuse infiltrates on his lungs this is thought to probably be adult respiratory distress syndrome. Dr. Lanza is planning a tracheostomy tube later on. Today the patient's O2 had dropped of left 6 of PEEP but I switched him to an IMV of 24 and have added 15 of CPAP and I hope this will improve his oxygenation. His chest x-ray shows 5 lobe cannonball-like alveolar infiltrates and this is almost certainly related to sepsis Microbiology. Sputum is growing staph aureus and Cee albicans. I reviewed the patient's antibiotics. I have added oxacillin. He is on Cubicin with Cubicin will not work in the alveoli, but will be fine for his wound. ABGs FiO2 of 50% PEEP is 6 show a pH of 7.38, PCO2 41.5, PO2 of 66 and a bicarb of 24. Lab. Electrolytes are normal. Creatinine is 0.9 with a BUN of 42. White count is 8400 78 segs. H&H 10.1/31.4. Physical exam. Vital signs. See below Psychiatric. Response slightly to stimuli Neurology. Impossible to evaluate thoroughly Neck. Symmetrical. No meningismus Lymphatics. No submandibular cervical supraclavicular or epitrochlear adenopathy Chest. Velcro rales Heart. No gallop Abdomen. Nondistended. Rare bowel sounds Extremities. No evidence of deep venous thrombophlebitis The remainder of the physical exam is noncontributory. Plan. 1. Oxacillin 2 g IV piggyback every 6 hours for staph aureus from the sputum. 2. Daily chest x-ray, ABGs, lab Exam (Progress Note) - Constitutional Vitals: Period Temp Pulse Resp BP Sys/Frazier Pulse Ox Last 24 Hr 97.9 F-100.6 F 68-95 22-30 93-157/45-79 88-99 Results - Labs CBC & BMP: 01/04/17 03:40 01/04/17 03:40
--- NOTE | 2017-01-04 11:09 | Cardiology Progress Note ---
Assessment and Plan (1) Septic shock Status: Resolved Assessment and plan: 56y NAM, morbid presented with septic shock, due to lower extremity cellulitis. Cardiac biomarkers suggestive of myocardial injury, without ischemic EKG changes. Initially, had prolonged QTC, resolved with improved metabolic status. Comorbities- obstructive sleep apnea, morbid obesity, alcohol abuse, seizures, CRISTOPHER resolved, thrombocytopenia, anemia. -Cardiac injury. No ACS. LVEF was preserved, 65%. He had severe metabolic derangement and hypotension. Hemodynamics improved. He will need ischemic evaluation, once recovers from acute issues. -Cont Coreg 3.125 mg bid. May increase if BP stable -Hold off statin due to his comorbidities. Cirrhosis -Continue to monitor and replete electrolytes, avoid QTC prolonging agents. -Worsening hypernatremia, hyperosmolarity, with peripheral edema. Hold Lasix for now. Current Visit: Yes (2) History of seizures Status: Chronic Current Visit: Yes (3) Hypotension Status: Resolved Current Visit: Yes (4) Cellulitis of right lower extremity Status: Resolved Current Visit: Yes (5) Confusion Status: Acute Current Visit: Yes (6) Elevated troponin Status: Acute Current Visit: Yes (7) Thrombocytopenia Status: Acute Current Visit: Yes (8) ANDRIA (obstructive sleep apnea) Status: Chronic Current Visit: Yes (9) Cirrhosis Status: Acute Current Visit: Yes (10) Hypokalemia Status: Acute Current Visit: Yes (11) Respiratory failure Status: Acute Current Visit: Yes Qualifiers: Chronicity: acute on chronic Respiratory failure complication: hypoxia and hypercapnia Qualified Code(s): J96.21 - Acute and chronic respiratory failure with hypoxia; J96.22 - Acute and chronic respiratory failure with hypercapnia Cardiology - PN: Subj Interval history: He had fever last night. Still tachypneic, on vent. No recurrence of sustained ventricular arrhythmia. Blood pressure is stable. Exam (Progress Note) - Constitutional Vitals: Period Temp Pulse Resp BP Sys/Frazier Pulse Ox Last 24 Hr 97.9 F-100.6 F 68-95 22-30 93-122/45-60 88-99 General appearance: no acute distress, morbidly obese, other (Unresponsive) - Head Head exam: Present: normal inspection - Eye Eye exam: Absent: periorbital swelling, laceration to eyelids - ENT ENT exam: Present: normal external ear exam - Neck Neck exam: Present: other (Thick neck) - Respiratory Respiratory exam: Present: decreased breath sounds - Cardiovascular Cardiovascular exam: Present: regular rate and rhythm. Absent: gallop - GI/Abdominal GI/Abdominal exam: Present: hypoactive bowel sounds. Absent: distended, guarding - Extremities Exam Extremities exam: Present: normal inspection, normal capillary refill, edema (1+ ) - Neurological Exam Neurological exam: Present: other ( unresponsive) - Skin Skin exam: Present: normal color, warm. Absent: cyanosis Result/EKG - Labs CBC & BMP: 01/04/17 03:40 01/04/17 03:40 Lab Results: I have reviewed the past 24 hour labs Labs: Laboratory Results - last 24 hr 01/03/17 01/03/17 01/03/17 11:24 17:09 23:46 WBC RBC Hgb Hct MCV MCH MCHC RDW Plt Count MPV Neut % (Auto) Lymph % (Auto) [place] % (Auto) Eos % (Auto) Baso % (Auto) Neut # (Auto) Lymph # (Auto) [place] # (Auto) Eos # (Auto) Baso # (Auto) Immature Gran % Nucleated RBC % Immature Gran # Nucleated RBCs # ABG pH ABG pCO2 ABG pO2 ABG HCO3 ABG Total CO2 ABG O2 Saturation ABG Base Excess FiO2 Sodium Potassium Chloride Carbon Dioxide Anion Gap BUN Creatinine GFR Calculation BUN/Creatinine Ratio Glucose POC Glucose 93 118 H 176 H Calculated Osmolality Calcium 01/04/17 01/04/17 01/04/17 03:10 03:40 03:40 WBC 8.4 RBC 3.32 L Hgb 10.1 L Hct 31.4 L MCV 94.6 MCH 30 MCHC 32.2 RDW 16.7 Plt Count 169 MPV 10.2 Neut % (Auto) 78.2 H Lymph % (Auto) 7.6 L [place] % (Auto) 7.9 Eos % (Auto) 5.0 Baso % (Auto) 0.2 Neut # (Auto) 6.5 Lymph # (Auto) 0.6 L [place] # (Auto) 0.7 Eos # (Auto) 0.4 Baso # (Auto) 0.0 Immature Gran % 1.1 Nucleated RBC % 0.2 Immature Gran # 0.09 Nucleated RBCs # 0.02 ABG pH 7.385 ABG pCO2 41.5 ABG pO2 66.0 L ABG HCO3 24.2 ABG Total CO2 22.5 L ABG O2 Saturation 92.6 L ABG Base Excess -0.2 FiO2 50.00 Sodium 149 H Potassium 4.1 Chloride 116 H Carbon Dioxide 27 Anion Gap 10.1 BUN 42 H Creatinine 0.90 GFR Calculation 130 BUN/Creatinine Ratio 46.00 H Glucose 148 H POC Glucose Calculated Osmolality 309.1 H Calcium 7.5 L - EKG EKG results: interpreted by me
[2017-01-04] MEDS: DESITIN 4OZ/NYSTATIN 15 GRAM MIXTURE PASTE TOP SCH ×2 (12:00→21:37)
[2017-01-04] MEDS: OXACILLIN 2,000 MG in SODIUM CHLORIDE 0.9% 100 ML IV SCH ×2 (14:00→21:06)
[2017-01-04] MEDS: NOREPINEPHRINE 8 MG in SODIUM CHLORIDE 0.9% 242 ML IV SCH ×2 (21:38→22:23)
[2017-01-05] MEDS: METOCLOPRAMIDE 10 MG/2 ML VIAL IV SCH ×4 (00:16→17:55)
[2017-01-05] MEDS: AZTREONAM 2,000 MG in SODIUM CHLORIDE 0.9% 100 ML IV SCH ×3 (00:16→16:45)
[2017-01-05] MEDS: INSULIN REGULAR 100 UNIT/ML SUBCUT SCH ×4 (00:23→17:55)
[2017-01-05] MEDS: ALBUTEROL/IPRATROPIUM 3 ML NEB RESP TX SCH ×4 (00:50→19:27)
[2017-01-05] MEDS: OXACILLIN 2,000 MG in SODIUM CHLORIDE 0.9% 100 ML IV SCH ×4 (02:24→19:55)
[2017-01-05] MEDS: DIAZEPAM 10 MG/2 ML SYRINGE IV SCH ×4 (02:24→20:00)
[2017-01-05] MEDS: PROPOFOL 1,000 MG/100 ML BOTTLE IV SCH ×3 (02:56→23:28)
[2017-01-05 03:41] LABS: ABG Base Excess -1.3 MMOL/L (-2.5-2.5); ABG HCO3 23.3 MMOL/L (20-26); ABG Oxygen Saturation 94.4 % (95-100); ABG PH 7.358 (7.35-7.45); ABG PO2 74.6 MM HG (80-95); ABG TCO2 22.1 MMOL/L (23-27); Allen Test Positive; Pt O2 Delivery Device Ventilator
[2017-01-05 04:14] LABS: Basophils % 0.3 % (0.0-0.8); Eosinophils # 0.3 10*3/uL (0.0-0.87); Eosinophils % 2.3 % (0.00-10.9); Hematocrit 30.2 VOL% (42.0-52.0); Hemoglobin 9.7 GM/DL (14.0-18.0); Immature Granulocytes % 1.7 %; Lymphocytes # 1.1 10*3/uL (1.4-4.0); Lymphocytes % 9.4 % (21.2-54.2); Mean Corpuscular HGB Conc 32.1 GM/DL (32-36); Mean Corpuscular Hemoglobin 31 PG (27-34); Mean Corpuscular Volume 95.3 FL (87-102); Mean Platelet Volume 10.4 FL (9.6-12.0); Monocytes # 0.9 10*3/uL (0.11-0.8); Monocytes % 7.9 % (1.7-12.7); Neutrophils # 9.3 10*3/uL (1.4-7.4); Neutrophils % 78.4 % (38.7-73.9); Platelet Count 223 T/CUMM (130-400); Red Blood Count 3.17 MC/CUMM (3.8-5.5); Red Cell Distribution Width 17.2 % (9.3-17.3); White Blood Count 11.8 T/CUMM (4-12)
[2017-01-05 04:58] LABS: Magnesium 2.5 MG/DL (1.8-2.4); Osmolality,Calculated 310.1 MOS/KG (273-304); Potassium 4.3 MMOL/L (3.5-5.1)
[2017-01-05] MEDS: PHENYTOIN 100 MG/2 ML VIAL IV SCH ×3 (05:46→21:26)
--- NOTE | 2017-01-05 08:46 | Hospitalist Progress Note ---
Assessment and Plan (1) Respiratory failure Status: Acute Assessment and plan: The patient is admitted to the hospital with respiratory failure. The patient' s pulmonary edema worsened due to fluid resuscitation he is now requiring mechanical ventilation. The patient's infection is improving with treatment including IV antibiotics of aztreonam and daptomycin. The patient had become mildly volume depleted so I reduced the dose of Lasix yesterday to a once daily enteral dose. Creatinine is stabilized and BUN improving. Will recheck electrolytes tomorrow. The patient had tracheostomy yesterday and is accepted for transfer to [facility]. I am hoping the patient can go to [facility] on Friday. Chest x-ray today reveals increased infiltrate. I am going to try a dose of IV Lasix to see if it will improve lung water. Current Visit: Yes Qualifiers: Chronicity: acute on chronic Respiratory failure complication: hypoxia and hypercapnia Qualified Code(s): J96.21 - Acute and chronic respiratory failure with hypoxia; J96.22 - Acute and chronic respiratory failure with hypercapnia (2) Hypotension Status: Resolved Current Visit: Yes (3) History of seizures Status: Chronic Current Visit: Yes (4) Anasarca associated with disorder of kidney Status: Acute Current Visit: Yes (5) Cellulitis of right lower extremity Status: Resolved Current Visit: Yes (6) Septic shock Status: Resolved Current Visit: Yes Hospitalist: Subjective Interval history: The patient is hemodynamically stable. He continues on mechanical ventilation via tracheostomy. There have been no new events. The patient is tolerating tube feeding at goal rate. Exam - Constitutional Vitals: Period Temp Pulse Resp BP Sys/Frazier Pulse Ox Last 24 Hr 98.7 F-100.6 F 61-96 16-31 80-126/39-61 89-98 Exam: Constitutional System: No distress. No tremulousness. The patient is intubated via tracheostomy and mechanically ventilated. He is sedated with Diprivan Head: Normocephalic, atraumatic. Ears, Nose and Throat System: No evidence of Otitis or Mastoiditis. No epistaxis or discharge Eyes System: Pupils equal, round, and reactive. Extraocular muscles intact. Neck: Supple, without adenopathy, 1+ jugular venous distention. No thyromegaly , neck mass, or prior surgery apparent. Respiratory System: Chest rhonchi in dependent areas to auscultation. Cardiovascular System: Heart with regular rate and rhythm. No murmur. GI System: Abdomen obese, soft, nontender. Hypo-active bowel sounds present. Musculoskeletal System: limbs with 1+ pedal edema and cellulitis. Full distal pulses. Neurological System: Exam not possible due to sedation Results - Labs CBC & BMP: 01/05/17 04:08 01/05/17 04:08 Lab Results: I have reviewed the past 24 hour labs
[2017-01-05] MEDS ORDERED: FUROSEMIDE 40 MG/4 ML VIAL IV ONE (08:47)
[2017-01-05] MEDS: LACTULOSE 20 GM/30 ML UDCUP PER TUBE SCH ×2 (09:04→21:26)
[2017-01-05] MEDS: DESITIN 4OZ/NYSTATIN 15 GRAM MIXTURE PASTE TOP SCH ×2 (09:05→21:26)
[2017-01-05] MEDS: ASPIRIN EC 325 MG TABLET PO SCH (09:05)
[2017-01-05] MEDS: CARVEDILOL 3.125 MG TABLET PO SCH ×2 (09:05→21:26)
[2017-01-05] MEDS: THIAMINE 200 MG/2 ML VIAL IV SCH (09:06)
[2017-01-05] MEDS: RANITIDINE 150 MG/10 ML 30 ML BOTTLE NG SCH ×2 (09:06→21:27)
--- NOTE | 2017-01-05 09:14 | Pulmonology Progress Note ---
Pulmonary - PN: Subj Interval history: This is a 56-year-old male patient whom I am seeing for Dr. Ravi Lanza. This patient has cirrhosis of the liver. He was admitted in respiratory distress and required intubation. Intubation was difficult and he had a lot of swelling. She had diffuse infiltrates on his lungs this is thought to probably be adult respiratory distress syndrome. Dr. Lanza is planning a tracheostomy tube later on. Today the patient's O2 had dropped of left 6 of PEEP but I switched him to an IMV of 24 and have added 15 of CPAP and I hope this will improve his oxygenation. His chest x-ray shows 5 lobe cannonball-like alveolar infiltrates and this is almost certainly related to sepsis Microbiology. Sputum is growing staph aureus and Cee albicans. I reviewed the patient's antibiotics. I have added oxacillin. He is on Cubicin with Cubicin will not work in the alveoli, but will be fine for his wound. ABGs FiO2 of 50% PEEP is 6 show a pH of 7.38, PCO2 41.5, PO2 of 66 and a bicarb of 24. Lab. Electrolytes are normal. Creatinine is 0.9 with a BUN of 42. White count is 8400 78 segs. H&H 10.1/31.4. 01/05/2017. Patient's bilateral 5 lobe alveolar infiltrates continue to worsen. He has air bronchograms bilaterally. ABGs on FiO2 of 60% show a pH 7.36, PCO2 43, PO2 is 74.6 and a bicarb of 23.3. Sodium is 149, potassium 4.3, creatinine 1.1 and a BUN of 50. White blood cell count is 11,800 with 78 segs. H&H is 9.7 /30.2. Platelets 223,000. There are no new cultures. We will continue with present medicines. Medicines have been reviewed and labs been reviewed. Oxacillin was started on 01/04/2017 Physical exam. Vital signs. See below Psychiatric. Response slightly to stimuli Neurology. Impossible to evaluate thoroughly Neck. Symmetrical. No meningismus Lymphatics. No submandibular cervical supraclavicular or epitrochlear adenopathy Chest. Velcro rales Heart. No gallop Abdomen. Nondistended. Rare bowel sounds Extremities. No evidence of deep venous thrombophlebitis The remainder of the physical exam is noncontributory. Plan. 1. 01/04/2017 oxacillin 2 g IV piggyback every 6 hours for staph aureus from the sputum. 2. Daily chest x-ray, ABGs, lab 3. See my note 01/05/2007 Exam (Progress Note) - Constitutional Vitals: Period Temp Pulse Resp BP Sys/Frazier Pulse Ox Last 24 Hr 98.7 F-100.6 F 61-96 16-31 80-126/39-61 89-98 Results - Labs CBC & BMP: 01/05/17 04:08 01/05/17 04:08
--- NOTE | 2017-01-05 09:16 | XRay Report ---
XR chest 1V portable Indication: Tracheostomy. Chest one view: Since yesterday, tracheostomy, central line, NG tube and cardiomegaly are stable. Relatively stable but still severe alveolar opacification of both lung [place] noted diffusely. Impression: Little significant change. PROCEDURE INTERPRETED AT [facility] DEPARTMENT OF RADIOLOGY Final Report Signed by: David Luevano M.D.
--- NOTE | 2017-01-05 09:50 | Cardiology Progress Note ---
Assessment and Plan (1) Septic shock Status: Resolved Assessment and plan: 56y NAM, morbid presented with septic shock, due to lower extremity cellulitis. Cardiac biomarkers suggestive of myocardial injury, without ischemic EKG changes. Initially, had prolonged QTC, resolved with improved metabolic status. Comorbities- obstructive sleep apnea, morbid obesity, alcohol abuse, seizures, CRISTOPHER resolved, thrombocytopenia, anemia. -Cardiac injury. No ACS. LVEF was preserved, 65%. He had severe metabolic derangement and hypotension. Hemodynamics improved. He will need ischemic evaluation, once recovers from acute issues. -Cont Coreg 3.125 mg bid. Increase, if blood pressure remains stable. -Hold off statin due to his comorbidities. Cirrhosis -Continue to monitor and replete electrolytes, avoid QTC prolonging agents. -Hypernatremia, hyperosmolarity, with peripheral edema. He got iv. Lasix today. If electrolyte changes worsen, may need free water supplementation. On tube feeds. Current Visit: Yes (2) History of seizures Status: Chronic Current Visit: Yes (3) Hypotension Status: Resolved Current Visit: Yes (4) Cellulitis of right lower extremity Status: Resolved Current Visit: Yes (5) Confusion Status: Acute Current Visit: Yes (6) Elevated troponin Status: Acute Current Visit: Yes (7) Thrombocytopenia Status: Acute Current Visit: Yes (8) ANDRIA (obstructive sleep apnea) Status: Chronic Current Visit: Yes (9) Cirrhosis Status: Acute Current Visit: Yes (10) Hypokalemia Status: Acute Current Visit: Yes (11) Respiratory failure Status: Acute Current Visit: Yes Qualifiers: Chronicity: acute on chronic Respiratory failure complication: hypoxia and hypercapnia Qualified Code(s): J96.21 - Acute and chronic respiratory failure with hypoxia; J96.22 - Acute and chronic respiratory failure with hypercapnia Cardiology - PN: Subj Interval history: He is on sedation with low-dose propofol. When it is held, he is agitated and difficult to ventilate. No recurrence of sustained ventricular tachyarrhythmia. Exam (Progress Note) - Constitutional Vitals: Period Temp Pulse Resp BP Sys/Frazier Pulse Ox Last 24 Hr 98.7 F-100.6 F 61-96 16-31 80-126/39-61 89-98 General appearance: no acute distress, morbidly obese, other (Unresponsive) - Head Head exam: Present: atraumatic. Absent: contusion - Eye Eye exam: Absent: periorbital swelling, laceration to eyelids - ENT ENT exam: Present: normal external ear exam - Neck Neck exam: Present: other (Tracheostomy) - Respiratory Respiratory exam: Present: clear to auscultation bilaterally. Absent: prolonged expiratory phase - Cardiovascular Cardiovascular exam: Present: regular rate and rhythm - GI/Abdominal GI/Abdominal exam: Present: hypoactive bowel sounds. Absent: distended, guarding - Extremities Exam Extremities exam: Present: normal inspection, normal capillary refill, edema (2+ ) - Neurological Exam Neurological exam: Present: other (Unresponsive) - Skin Skin exam: Present: normal color, warm. Absent: cyanosis Result/EKG - Labs CBC & BMP: 01/05/17 04:08 01/05/17 04:08 Lab Results: I have reviewed the past 24 hour labs Labs: Laboratory Results - last 24 hr 01/04/17 01/04/17 01/05/17 11:59 16:36 00:18 WBC RBC Hgb Hct MCV MCH MCHC RDW Plt Count MPV Neut % (Auto) Lymph % (Auto) [place] % (Auto) Eos % (Auto) Baso % (Auto) Neut # (Auto) Lymph # (Auto) [place] # (Auto) Eos # (Auto) Baso # (Auto) Immature Gran % Nucleated RBC % Immature Gran # Nucleated RBCs # ABG pH ABG pCO2 ABG pO2 ABG HCO3 ABG Total CO2 ABG O2 Saturation ABG Base Excess FiO2 Sodium Potassium Chloride Carbon Dioxide Anion Gap BUN Creatinine GFR Calculation BUN/Creatinine Ratio Glucose POC Glucose 139 H 112 H 135 H Calculated Osmolality Calcium Magnesium 01/05/17 01/05/17 01/05/17 03:17 04:08 04:08 WBC 11.8 D RBC 3.17 L Hgb 9.7 L Hct 30.2 L MCV 95.3 MCH 31 MCHC 32.1 RDW 17.2 Plt Count 223 D MPV 10.4 Neut % (Auto) 78.4 H Lymph % (Auto) 9.4 L [place] % (Auto) 7.9 Eos % (Auto) 2.3 Baso % (Auto) 0.3 Neut # (Auto) 9.3 H Lymph # (Auto) 1.1 L [place] # (Auto) 0.9 H Eos # (Auto) 0.3 Baso # (Auto) 0.0 Immature Gran % 1.7 Nucleated RBC % 0.0 Immature Gran # 0.20 Nucleated RBCs # 0.00 ABG pH 7.358 ABG pCO2 43.0 ABG pO2 74.6 L ABG HCO3 23.3 ABG Total CO2 22.1 L ABG O2 Saturation 94.4 L ABG Base Excess -1.3 FiO2 60.00 Sodium 149 H Potassium 4.3 Chloride 117 H Carbon Dioxide 24 Anion Gap 12.3 BUN 50 H Creatinine 1.10 GFR Calculation 101 BUN/Creatinine Ratio 45.00 H Glucose 135 H POC Glucose Calculated Osmolality 310.1 H Calcium 8.0 L Magnesium 2.5 H 01/05/17 05:33 WBC RBC Hgb Hct MCV MCH MCHC RDW Plt Count MPV Neut % (Auto) Lymph % (Auto) [place] % (Auto) Eos % (Auto) Baso % (Auto) Neut # (Auto) Lymph # (Auto) [place] # (Auto) Eos # (Auto) Baso # (Auto) Immature Gran % Nucleated RBC % Immature Gran # Nucleated RBCs # ABG pH ABG pCO2 ABG pO2 ABG HCO3 ABG Total CO2 ABG O2 Saturation ABG Base Excess FiO2 Sodium Potassium Chloride Carbon Dioxide Anion Gap BUN Creatinine GFR Calculation BUN/Creatinine Ratio Glucose POC Glucose 142 H Calculated Osmolality Calcium Magnesium - EKG EKG results: interpreted by me
[2017-01-05] MEDS: NOREPINEPHRINE 8 MG in SODIUM CHLORIDE 0.9% 242 ML IV SCH ×2 (10:00→21:37)
[2017-01-06] MEDS: AZTREONAM 2,000 MG in SODIUM CHLORIDE 0.9% 100 ML IV SCH ×3 (00:32→16:17)
[2017-01-06] MEDS: METOCLOPRAMIDE 10 MG/2 ML VIAL IV SCH ×4 (00:33→19:16)
[2017-01-06] MEDS: ALBUTEROL/IPRATROPIUM 3 ML NEB RESP TX SCH ×4 (00:43→19:30)
[2017-01-06] MEDS: INSULIN REGULAR 100 UNIT/ML SUBCUT SCH ×5 (00:43→23:59)
[2017-01-06] MEDS: OXACILLIN 2,000 MG in SODIUM CHLORIDE 0.9% 100 ML IV SCH ×4 (03:10→21:13)
[2017-01-06] MEDS: DIAZEPAM 10 MG/2 ML SYRINGE IV SCH ×4 (03:18→21:58)
[2017-01-06 04:09] LABS: ABG Base Excess -2.5 MMOL/L (-2.5-2.5); ABG HCO3 22.2 MMOL/L (20-26); ABG Oxygen Saturation 95.3 % (95-100); ABG PCO2 50.3 MM HG (35-48); ABG PH 7.293 (7.35-7.45); ABG PO2 85.1 MM HG (80-95); ABG TCO2 22.4 MMOL/L (23-27); Pt O2 Delivery Device Ventilator
[2017-01-06 04:41] LABS: Basophils % 0.2 % (0.0-0.8); Eosinophils # 0.3 10*3/uL (0.0-0.87); Eosinophils % 3.1 % (0.00-10.9); Hematocrit 31.8 VOL% (42.0-52.0); Hemoglobin 9.7 GM/DL (14.0-18.0); Immature Granulocytes % 1.6 %; Immature Granulocytes Absolute 0.17 #; Lymphocytes % 9.2 % (21.2-54.2); Mean Corpuscular HGB Conc 30.5 GM/DL (32-36); Mean Corpuscular Hemoglobin 30 PG (27-34); Mean Corpuscular Volume 99.7 FL (87-102); Mean Platelet Volume 10.3 FL (9.6-12.0); Monocytes % 9.1 % (1.7-12.7); Neutrophils # 8.1 10*3/uL (1.4-7.4); Neutrophils % 76.8 % (38.7-73.9); Platelet Count 259 T/CUMM (130-400); Red Blood Count 3.19 MC/CUMM (3.8-5.5); Red Cell Distribution Width 17.3 % (9.3-17.3); White Blood Count 10.6 T/CUMM (4-12)
[2017-01-06] MEDS: NOREPINEPHRINE 8 MG in SODIUM CHLORIDE 0.9% 242 ML IV SCH ×3 (04:52→20:32)
[2017-01-06 05:15] LABS: Albumin 1.3 G/DL (3.4-5.0); Bilirubin,Total 5.3 MG/DL (0.2-1.0); Calcium 7.7 MG/DL (8.5-10.1); Magnesium 2.5 MG/DL (1.8-2.4); Osmolality,Calculated 318.7 MOS/KG (273-304); Phosphorous 7.8 MG/DL (2.5-4.9); Potassium 4.4 MMOL/L (3.5-5.1)
[2017-01-06] MEDS: PHENYTOIN 100 MG/2 ML VIAL IV SCH ×3 (05:45→21:14)
[2017-01-06] MEDS: PROPOFOL 1,000 MG/100 ML BOTTLE IV SCH ×2 (05:53→12:39)
--- NOTE | 2017-01-06 06:51 | Cardiology Progress Note ---
Cardiology - PN: Subj Interval history: Cardiology note 56-year-old man admitted with septic shock due to lower extremity cellulitis Multiple comorbidities. Remains intubated and sedated on propofol for agitation and restlessness Telemetry shows sinus rhythm in the 60s O2 sat 96 on 60% FiO2 Blood pressure 100/52 on levo fed Decreased breath sounds scattered rhonchi Regular rhythm no gallop Abdomen soft benign Lab data today Sodium 152 potassium 4.4 chloride 118 CO2 25 BUN 59 creatinine 1.20 magnesium 2.5 Impression impression Septic shock. Blood cultures remain negative Obstructive sleep apnea Alcohol abuse with cirrhosis Seizure disorder Recent echo showed ejection fraction 65% Morbid obesity Plan CPAP trials Tube feedings Wean Levophed as tolerated Exam (Progress Note) - Constitutional Vitals: Period Temp Pulse Resp BP Sys/Frazier Pulse Ox Last 24 Hr 98.2 F-99 F 57-80 12-67 80-140/36-63 90-100 Result/EKG - Labs CBC & BMP: 01/06/17 04:27 01/06/17 04:27 Labs: Laboratory Results - last 24 hr 01/05/17 01/05/17 01/05/17 11:43 17:42 23:48 WBC RBC Hgb Hct MCV MCH MCHC RDW Plt Count MPV Neut % (Auto) Lymph % (Auto) [place] % (Auto) Eos % (Auto) Baso % (Auto) Neut # (Auto) Lymph # (Auto) [place] # (Auto) Eos # (Auto) Baso # (Auto) Immature Gran % Nucleated RBC % Immature Gran # Nucleated RBCs # ABG pH ABG pCO2 ABG pO2 ABG HCO3 ABG Total CO2 ABG O2 Saturation ABG Base Excess FiO2 Sodium Potassium Chloride Carbon Dioxide Anion Gap BUN Creatinine GFR Calculation BUN/Creatinine Ratio Glucose POC Glucose 146 H 165 H 135 H Calculated Osmolality Calcium Phosphorus Magnesium Total Bilirubin AST ALT Alkaline Phosphatase Total Protein Albumin Globulin Albumin/Globulin Ratio 01/06/17 01/06/17 01/06/17 03:51 04:27 04:27 WBC 10.6 RBC 3.19 L Hgb 9.7 L Hct 31.8 L MCV 99.7 MCH 30 MCHC 30.5 L RDW 17.3 Plt Count 259 MPV 10.3 Neut % (Auto) 76.8 H Lymph % (Auto) 9.2 L [place] % (Auto) 9.1 Eos % (Auto) 3.1 Baso % (Auto) 0.2 Neut # (Auto) 8.1 H Lymph # (Auto) 1.0 L [place] # (Auto) 1.0 H Eos # (Auto) 0.3 Baso # (Auto) 0.0 Immature Gran % 1.6 Nucleated RBC % 0.0 Immature Gran # 0.17 Nucleated RBCs # 0.00 ABG pH 7.293 L ABG pCO2 50.3 H ABG pO2 85.1 ABG HCO3 22.2 ABG Total CO2 22.4 L ABG O2 Saturation 95.3 ABG Base Excess -2.5 FiO2 60.00 Sodium 152 H Potassium 4.4 Chloride 118 H Carbon Dioxide 25 Anion Gap 13.4 BUN 59 H Creatinine 1.20 GFR Calculation 91 BUN/Creatinine Ratio 49.00 H Glucose 119 H POC Glucose Calculated Osmolality 318.7 H Calcium 7.7 L Phosphorus 7.8 H Magnesium 2.5 H Total Bilirubin 5.30 H AST 164 H ALT 42 Alkaline Phosphatase 112 Total Protein 6.0 L Albumin 1.3 L Globulin 4.7 H Albumin/Globulin Ratio 0.2 L
--- NOTE | 2017-01-06 07:22 | XRay Report ---
Referring Physician: Caden Rai Exam: XR chest 1V portable Date: January 06, 2017 at 3:10 AM Reason: ARDS, on ventilator Comparison: Chest one view portable January 05, 2017 Findings: A right-sided central venous catheter, feeding tube and tracheostomy catheter are again in place. The heart is likely stable in size but is partially obscured by diffuse opacities within both lungs. These opacities could represent pulmonary edema, pneumonia and/or ARDS. No pneumothorax is identified, but there may be mild bilateral pleural fluid. The osseous structures appear stable. Impression: There is slight increased opacification of the left lung base. The study is otherwise similar to before. PROCEDURE INTERPRETED AT [facility] DEPARTMENT OF RADIOLOGY Final Report Signed by: Dr. Beti Blair
--- NOTE | 2017-01-06 08:27 | Hospitalist Progress Note ---
Assessment and Plan (1) Respiratory failure with hypoxia and hypercapnia Status: Acute Assessment and plan: Continue to wean vent as tolerated. Managed by Pulmonary Medicine. Appreciate their assistance. Current Visit: Yes (2) Hypotension Status: Acute Assessment and plan: Remains on Levophed. Will wean as tolerated. Current Visit: Yes (3) Hypernatremia Status: Acute Assessment and plan: Increase free water flushes with tube feedings. Current Visit: Yes (4) Respiratory acidosis Status: Acute Assessment and plan: Vent management per Pulmonary. Current Visit: Yes (5) History of seizures Status: Chronic Assessment and plan: Continue Dilantin. Check levels today. Current Visit: Yes (6) Hypomagnesemia Status: Acute Assessment and plan: Resolved with replacement. Current Visit: Yes (7) Acute renal failure Status: Resolved Assessment and plan: Resolving Current Visit: Yes (8) Cellulitis of right lower extremity Status: Resolved Assessment and plan: Continue Oxacillin and Aztreonam. Will d/c Daptomycin with the addition of Oxacillin. MRSA has not been isolated thus far. Current Visit: Yes (9) Septic shock Status: Resolved Current Visit: Yes (10) Cirrhosis Status: Chronic Assessment and plan: Continue to monitor liver tests as needed. Continue Lactulose. Current Visit: Yes (11) ANDRIA (obstructive sleep apnea) Status: Chronic Assessment and plan: Currently ventilated. Per Pulmonary Current Visit: Yes (12) Hypokalemia Status: Resolved Current Visit: Yes (13) Ventilator dependence Status: Acute Assessment and plan: Management per Pulmonary Current Visit: Yes Hospitalist: Subjective Interval history: Patient is a 56 yo male admitted with acute hypoxic/hypercapneic respiratory failure secondary to septic shock related to cellulitis. He remains sedated and intubated with a significant FIO2 requirement of 60%. He continues on pressors as well- weaning. On multiple broad spectrum antibiotics to include Daptomycin, Oxacillin, and Aztreonam. Patient has been accepted to [facility]. Not sure that he is clinically ready today. Will need to stabilize hemodynamically and get pressors off. Exam - Constitutional Vitals: Period Temp Pulse Resp BP Sys/Frazier Pulse Ox Last 24 Hr 98.2 F-99 F 57-80 12-67 80-140/36-63 90-100 - Head Head exam: Present: normocephalic, atraumatic - Respiratory Respiratory exam: Present: other (Course breath sounds througout) - Cardiovascular Cardiovascular exam: Present: regular rate and rhythm - GI/Abdominal GI/Abdominal exam: Present: hypoactive bowel sounds, other (Liquid stool in rectal tube/bag noted. (On Lactulose)) - Extremities Exam Extremities exam: Present: edema - Neurological Exam Neurological exam: Present: other (Sedated) Results - Labs CBC & BMP: 01/06/17 04:27 01/06/17 04:27 Labs: I/O's= 625/1730
[2017-01-06] MEDS: LACTULOSE 20 GM/30 ML UDCUP PER TUBE SCH ×2 (09:16→21:14)
[2017-01-06] MEDS: THIAMINE 200 MG/2 ML VIAL IV SCH (09:16)
[2017-01-06] MEDS: CARVEDILOL 3.125 MG TABLET PO SCH ×2 (09:17→21:58)
[2017-01-06] MEDS: DESITIN 4OZ/NYSTATIN 15 GRAM MIXTURE PASTE TOP SCH ×2 (09:18→23:51)
[2017-01-06] MEDS: ASPIRIN EC 325 MG TABLET PO SCH (09:18)
[2017-01-06] MEDS: RANITIDINE 150 MG/10 ML 30 ML BOTTLE NG SCH ×2 (09:31→21:14)
--- NOTE | 2017-01-06 09:48 | Pulmonology Progress Note ---
Pulmonary - PN: Subj Interval history: Patient is a 56-year-old that came in with septic shock and hypotension. He is felt to have a component of cirrhosis. He has cellulitis of his leg. He has a past history of having a CVA and seizures. He has been poorly responsive and having worsening respiratory insufficiency and CO2 retention. He has developed extensive bilateral infiltrates. He has been sedated on the ventilator. He has done fairly well over the weekend although his x-ray still looks terrible. He still has extensive bilateral infiltrates and is requiring ventilatory support. He is still on low-dose Levophed. He has good urine output. His weight is down a little. His oxygenation is fair. Exam (Progress Note) - Constitutional Vitals: Period Temp Pulse Resp BP Sys/Frazier Pulse Ox Last 24 Hr 98.2 F-99 F 57-80 12-67 80-140/36-63 90-100 Exam: General appearance: over weight, other (He is sedated and resting okay on the ventilator. He still requires maximal ventilatory support.) - Head Head exam: Present: normal inspection, normocephalic - Eye Eye exam: Present: EOMI, scleral icterus Pupils: Present: GAYLE - ENT ENT exam: Present: He has a tracheostomy tube in place. His facial swelling is better. Neck exam: Present: He has a very short large neck, the tracheostomy tube is doing okay. - Respiratory Respiratory exam: Present: He has good breath sounds bilaterally but he still has coarse breath sounds with bilateral rales and rhonchi. - Cardiovascular Cardiovascular exam: Present: regular rate and rhythm. Absent: gallop, systolic murmur - GI/Abdominal GI/Abdominal exam: Present: His abdomen is soft and less distended and he is tolerating some feedings now. - Extremities Exam Extremities exam: Present: edema (There is brawny edema of the lower extremities ). Absent: calf tenderness - Neurological Exam Neurological exam: Present: altered (He is arousable and requires sedation.) - Skin Skin exam: Present: warm, dry Results - Labs CBC & BMP: 01/06/17 04:27 01/06/17 04:27 Labs: His PO2 is 85 on 60%. His PCO2 is 50 with a pH of 7.29 - Diagnostic Findings Procedure: Chest x-ray: image reviewed by me, report reviewed by me (Chest x- ray shows extensive bilateral infiltrates.) Assessment and Plan (1) History of seizures Status: Chronic Assessment and plan: The patient has had a CVA and history of seizures and is on Dilantin. He does respond okay. Current Visit: Yes (2) Acute renal failure Status: Resolved Assessment and plan: Patient came in with some renal insufficiency but his creatinine has been better. His creatinine is 1.2 today. Current Visit: Yes (3) Cellulitis of right lower extremity Status: Resolved Assessment and plan: Patient has edema and cellulitis of his legs. His legs are wrapped and stable. Current Visit: Yes (4) Septic shock Status: Resolved Assessment and plan: Patient originally presented with hypotension and some component of shock. He does require a little bit of Levophed when he is on sedation. Current Visit: Yes (5) Cirrhosis Status: Chronic Assessment and plan: The patient is getting more jaundiced and possibly has some hepatic encephalopathy. Ammonia level is down. His bilirubin is a little better at 5.3. Current Visit: Yes (6) ANDRIA (obstructive sleep apnea) Status: Chronic Assessment and plan: The patient is on the ventilator at present. He has a tracheostomy tube now. Current Visit: Yes (7) Respiratory failure Status: Acute Assessment and plan: The patient had respiratory failure and is now on the ventilator. He still has extensive infiltrates. He is still requiring maximal ventilatory support. Current Visit: Yes Qualifiers: Chronicity: acute on chronic Respiratory failure complication: hypoxia and hypercapnia Qualified Code(s): J96.21 - Acute and chronic respiratory failure with hypoxia; J96.22 - Acute and chronic respiratory failure with hypercapnia
--- NOTE | 2017-01-06 12:06 | General Surgery Consult Note ---
Assessment and Plan - Time spent with patient Time spent with patient: Greater than 30 minutes (1) Decubitus ulcer of sacral region, unstageable Status: Acute Assessment and plan: 01/06/17 Unstageable sacral decubitus ulcer. We will initiate Santyl in lieu of OR debridement. He will need vigilant offloading. An efficient use of staff would be a rotating, alternating bariatric pressure relieving surface, if we can get this. We will watch nutrition and hopefully this will respond with just conservative measures. Certainly it is still unclear as to what the etiology of his medical issues are, but we will continue to watch and be conservative at this point. Bilateral lower extremity chronic venous stasis disease without current ulcers. He's on Lovenox and SCDs but would also benefit from light weight compression socks and good local care. He also needs vigilant offloading and surveillance. Current Visit: Yes History of Present Illness Chief complaint: Sacral decubitus History of present illness: Mr. Rolon is a 56 year old male Home Medications Medication Instructions Recorded Confirmed Type Albuterol Neb [Proventil Neb] 2.5 mg RESP TX RT Q1H PRN #0 01/02/17 Rx Albuterol/Ipratropium Neb [Duoneb] 3 ml RESP TX RT Q6H 01/02/17 Rx Aspirin EC Tab 325 mg PO DAILY tablet 01/02/17 Rx Aztreonam [Azactam] 2,000 mg IV Q8H vial 01/02/17 Rx DAPTOmycin [Cubicin] 500 mg IV Q24H vial 01/02/17 Rx Dextrose 50% [D50] 25 gm IV PRN PRN #0 vial 01/02/17 Rx Diazepam Inj [Valium Inj] 10 mg IV Q6H syringe 01/02/17 Rx Furosemide Tab [Lasix Tab] 40 mg PER TUBE DAILY tablet 01/02/17 Rx Glucagon 1 mg IM PRN PRN #0 vial 01/02/17 Rx Heparin Lock Flush 50 units IV PRN PRN #0 syringe 01/02/17 Rx Insulin Regular [HumuLIN R] See Protocol SUBCUT Q6HR unit 01/02/17 Rx LORazepam INJ [Ativan Inj] 1 mg IV Q4H PRN #0 vial 01/02/17 Rx Lactulose Liquid [Chronulac] 20 gm PER TUBE BID 01/02/17 Rx Magnesium Sulf Tate [Magnesium 2 gm IV .PER PROTOCOL PRN #0 01/02/17 Rx Sulfate Inj] Magnesium Sulf Tate [Magnesium 4 gm IV .PER PROTOCOL PRN #0 01/02/17 Rx Sulfate Inj] Metoclopramide Inj [Reglan Inj] 5 mg IV Q6HR vial 01/02/17 Rx Norepinephrine [Levophed] 8 mg IV TITRATE vial 01/02/17 Rx Ondansetron Inj [Zofran Inj] 4 mg IV Q4H PRN #0 vial 01/02/17 Rx Phenytoin Inj [Dilantin Inj] 150 mg IV Q8H vial 01/02/17 Rx Potassium Chloride Liquid 20 meq PER TUBE Q4H 01/02/17 Rx Potassium Chloride Tate 10 meq IV .PER PROTOCOL PRN #0 01/02/17 Rx Potassium Chloride Tate 20 meq IV .PER PROTOCOL PRN #0 01/02/17 Rx Ranitidine Liquid [Zantac Syrup] 150 mg NG BID bottle 01/02/17 Rx Thiamine Inj [Vitamin B1 Inj] 100 mg IV DAILY vial 01/02/17 Rx Allergies Allergy/AdvReac Type Severity Reaction Status Date / Time No Known Allergies Allergy Verified 12/25/16 18:16 Medical,Surgical,& Family Hx - Medical History Cardio: No history of: Hypertension Neurology: History of: Cerebrovascular Accident, Seizures Endocrine: No history of: Diabetes Mellitus (NIDDM) Respiratory: History of: Obstructive Sleep Apnea No history of: COPD Other: History of: Skin Problems (cellulitis) - Surgical History Abdominal Surgeries: Surgical HX of: Hernia Repair - Family History Family History: Reports;: Family Diabetes - Social History Smoking Status: Never smoker Frequency of Alcohol Use: Frequently Type of Drug Use: None ROS unobtainable: due to endotracheal tube Exam - Constitutional Vitals: Period Temp Pulse Resp BP Sys/Frazier Pulse Ox Last 24 Hr 98.0 F-99 F 55-71 12-67 80-115/36-63 92-100 General appearance: over weight, other (Sedated on vent) - ENT Mouth exam: Present: dry mucosa, other (ET tube in place) - Respiratory Respiratory exam: Present: other (General rhonchi and mechanically ventilated respiratory sounds) - Cardiovascular Cardiovascular exam: Present: RRR - GI/Abdominal GI/Abdominal exam: Present: other (Obese, hypoactive bowel sounds. No apparent tenderness. No masses, no gross ascites. Generalized abdominal anasarca.) - Anus/Rectum Anus/Rectum: other (BMS in place. No prolapse or bleeding. ) - Extremities Exam Extremities exam: Present: other (BLE with chronic venous stasis skin changes, particularly in the gaiter area, right >left, without ulceration or cellulitis at present. No heel pressure changes. SCDs inplace; 2+ edema with pitting. No gross ischemic changes. ) - Back Exam Back exam: Present: other (Large 15x9cm sacral/buttocks decubitus ulcer is present; this is primarily central unstageable and fixed eschar with some blistering/skin peeling at the immediate edges. There is no purulence, no fluctuance. I see no other pressure changes. ) Results - Labs CBC & BMP: 01/06/17 04:27 01/06/17 04:27 Lab Results: I have reviewed the past 24 hour labs
[2017-01-06] MEDS: SKIN HEALING OINT (AQUAPHOR) 50 GM TUBE TOP SCH (15:45)
[2017-01-06] MEDS: COLLAGENASE OINT 30 GM TUBE TOP SCH ×2 (16:00→23:51)
[2017-01-07] MEDS: AZTREONAM 2,000 MG in SODIUM CHLORIDE 0.9% 100 ML IV SCH ×2 (00:15→08:36)
[2017-01-07] MEDS: METOCLOPRAMIDE 10 MG/2 ML VIAL IV SCH ×3 (00:15→13:24)
[2017-01-07] MEDS: ALBUTEROL/IPRATROPIUM 3 ML NEB RESP TX SCH ×3 (00:33→12:14)
[2017-01-07] MEDS: OXACILLIN 2,000 MG in SODIUM CHLORIDE 0.9% 100 ML IV SCH ×3 (02:15→14:24)
[2017-01-07] MEDS: DIAZEPAM 10 MG/2 ML SYRINGE IV SCH ×3 (02:27→14:27)
[2017-01-07 03:57] LABS: ABG Base Excess -1.1 MMOL/L (-2.5-2.5); ABG HCO3 23.5 MMOL/L (20-26); ABG Oxygen Saturation 94.8 % (95-100); ABG PH 7.317 (7.35-7.45); ABG TCO2 23.4 MMOL/L (23-27); Allen Test Positive; Pt O2 Delivery Device Ventilator
[2017-01-07 05:04] LABS: Basophils % 0.2 % (0.0-0.8); Eosinophils # 0.4 10*3/uL (0.0-0.87); Eosinophils % 4.3 % (0.00-10.9); Hematocrit 30.6 VOL% (42.0-52.0); Hemoglobin 9.9 GM/DL (14.0-18.0); Immature Granulocytes % 1.2 %; Lymphocytes # 0.9 10*3/uL (1.4-4.0); Lymphocytes % 10.5 % (21.2-54.2); Mean Corpuscular HGB Conc 32.4 GM/DL (32-36); Mean Corpuscular Hemoglobin 31 PG (27-34); Mean Corpuscular Volume 95.3 FL (87-102); Mean Platelet Volume 10.1 FL (9.6-12.0); Monocytes # 0.9 10*3/uL (0.11-0.8); Monocytes % 10.4 % (1.7-12.7); Neutrophils # 6.2 10*3/uL (1.4-7.4); Neutrophils % 73.4 % (38.7-73.9); Platelet Count 303 T/CUMM (130-400); Red Blood Count 3.21 MC/CUMM (3.8-5.5); Red Cell Distribution Width 17.6 % (9.3-17.3); White Blood Count 8.4 T/CUMM (4-12)
[2017-01-07 05:47] LABS: Calcium 7.8 MG/DL (8.5-10.1); Magnesium 2.6 MG/DL (1.8-2.4); Osmolality,Calculated 324.2 MOS/KG (273-304); Potassium 4.1 MMOL/L (3.5-5.1)
[2017-01-07] MEDS: INSULIN REGULAR 100 UNIT/ML SUBCUT SCH ×2 (05:57→12:05)
[2017-01-07] MEDS: PHENYTOIN 100 MG/2 ML VIAL IV SCH ×2 (05:57→13:25)
--- NOTE | 2017-01-07 06:40 | Cardiology Progress Note ---
Cardiology - PN: Subj Interval history: Cardiology note 56-year-old man admitted with septic shock due to lower extremity cellulitis To prevent has been off since 8 PM last night and patient unresponsive Blood pressure 102/5 off levophed O2 sat 97 on 60% FiO2 Regular rhythm no gallop Decreased breath sounds few rhonchi in the bases Abdomen soft nontender 1+ edema Lab data today White count 8.4 hemoglobin 9.9 hematocrit 30.6 Sodium 136 potassium 4.1 chloride 122 CO2 27 BUN 59 creatinine 1.0 Glucose 78 magnesium 2.6 Impression Septic shock due to lower extremity cellulitis Alcoholic cirrhosis Hypotension resolved Obstructive sleep apnea Morbid obesity Recent echo showed ejection fraction 65% Altered mental status Plan Continue IV antibiotics Tube feedings Follow neuro exam Transfer to [facility] Exam (Progress Note) - Constitutional Vitals: Period Temp Pulse Resp BP Sys/Frazier Pulse Ox Last 24 Hr 97.8 F-98.2 F 52-80 12-37 87-131/3-76 89-100 Result/EKG - Labs CBC & BMP: 01/07/17 04:50 01/07/17 04:50 Labs: Laboratory Results - last 24 hr 01/06/17 01/06/17 01/06/17 05:50 06:02 10:11 WBC RBC Hgb Hct MCV MCH MCHC RDW Plt Count MPV Neut % (Auto) Lymph % (Auto) [place] % (Auto) Eos % (Auto) Baso % (Auto) Neut # (Auto) Lymph # (Auto) [place] # (Auto) Eos # (Auto) Baso # (Auto) Immature Gran % Nucleated RBC % Immature Gran # Nucleated RBCs # ABG pH ABG pCO2 ABG pO2 ABG HCO3 ABG Total CO2 ABG O2 Saturation ABG Base Excess FiO2 Sodium Potassium Chloride Carbon Dioxide Anion Gap BUN Creatinine GFR Calculation BUN/Creatinine Ratio Glucose POC Glucose 151 H 166 H Calculated Osmolality Calcium Magnesium Phenytoin 5.8 L 01/06/17 01/06/17 01/06/17 11:49 18:12 23:40 WBC RBC Hgb Hct MCV MCH MCHC RDW Plt Count MPV Neut % (Auto) Lymph % (Auto) [place] % (Auto) Eos % (Auto) Baso % (Auto) Neut # (Auto) Lymph # (Auto) [place] # (Auto) Eos # (Auto) Baso # (Auto) Immature Gran % Nucleated RBC % Immature Gran # Nucleated RBCs # ABG pH ABG pCO2 ABG pO2 ABG HCO3 ABG Total CO2 ABG O2 Saturation ABG Base Excess FiO2 Sodium Potassium Chloride Carbon Dioxide Anion Gap BUN Creatinine GFR Calculation BUN/Creatinine Ratio Glucose POC Glucose 127 H 123 H 148 H Calculated Osmolality Calcium Magnesium Phenytoin 01/07/17 01/07/17 01/07/17 03:15 04:50 04:50 WBC 8.4 RBC 3.21 L Hgb 9.9 L Hct 30.6 L MCV 95.3 MCH 31 MCHC 32.4 RDW 17.6 H Plt Count 303 MPV 10.1 Neut % (Auto) 73.4 Lymph % (Auto) 10.5 L [place] % (Auto) 10.4 Eos % (Auto) 4.3 Baso % (Auto) 0.2 Neut # (Auto) 6.2 Lymph # (Auto) 0.9 L [place] # (Auto) 0.9 H Eos # (Auto) 0.4 Baso # (Auto) 0.0 Immature Gran % 1.2 Nucleated RBC % 0.0 Immature Gran # 0.10 Nucleated RBCs # 0.00 ABG pH 7.317 L ABG pCO2 50.0 H ABG pO2 79.0 L ABG HCO3 23.5 ABG Total CO2 23.4 ABG O2 Saturation 94.8 L ABG Base Excess -1.1 FiO2 60.00 Sodium 156 H Potassium 4.1 Chloride 122 H Carbon Dioxide 27 Anion Gap 11.1 BUN 59 H Creatinine 1.00 GFR Calculation 111 BUN/Creatinine Ratio 59.00 H Glucose 78 POC Glucose Calculated Osmolality 324.2 H Calcium 7.8 L Magnesium 2.6 H Phenytoin 01/07/17 05:42 WBC RBC Hgb Hct MCV MCH MCHC RDW Plt Count MPV Neut % (Auto) Lymph % (Auto) [place] % (Auto) Eos % (Auto) Baso % (Auto) Neut # (Auto) Lymph # (Auto) [place] # (Auto) Eos # (Auto) Baso # (Auto) Immature Gran % Nucleated RBC % Immature Gran # Nucleated RBCs # ABG pH ABG pCO2 ABG pO2 ABG HCO3 ABG Total CO2 ABG O2 Saturation ABG Base Excess FiO2 Sodium Potassium Chloride Carbon Dioxide Anion Gap BUN Creatinine GFR Calculation BUN/Creatinine Ratio Glucose POC Glucose 71 L Calculated Osmolality Calcium Magnesium Phenytoin
--- NOTE | 2017-01-07 06:48 | XRay Report ---
Referring Physician: Isidro Lanza MD Exam: XR chest 1V portable Date: January 07, 2017 at 3:13 AM Reason: Shortness of breath Comparison: Chest one view portable January 06, 2017 Findings: A right-sided central venous catheter, feeding tube and tracheostomy catheter are again in place. The heart is again largely obscured by diffuse pulmonary opacities. These opacities could represent pulmonary edema, pneumonia and/or ARDS. No pneumothorax is identified, but there may be bilateral pleural fluid. The osseous structures appear stable. Impression: There is diffuse opacification of both lungs, which has increased on the left. There may also be increased left pleural fluid. PROCEDURE INTERPRETED AT [facility] DEPARTMENT OF RADIOLOGY Final Report Signed by: Dr. Beti Blair
--- NOTE | 2017-01-07 07:04 | Pulmonology Progress Note ---
Pulmonary - PN: Subj Interval history: Patient is a 56-year-old that came in with septic shock and hypotension. He is felt to have a component of cirrhosis. He has cellulitis of his leg. He has a past history of having a CVA and seizures. He has been poorly responsive and having worsening respiratory insufficiency and CO2 retention. He has developed extensive bilateral infiltrates. He has been sedated on the ventilator. He has done fairly well over the weekend although his x-ray still looks terrible. He still has extensive bilateral infiltrates and is requiring ventilatory support. He is off sedation now and not really responding. He does have chronic liver disease however. His chest x-ray shows extensive infiltrates and he basically has ARDS. Exam (Progress Note) - Constitutional Vitals: Period Temp Pulse Resp BP Sys/Frazier Pulse Ox Last 24 Hr 97.8 F-98.2 F 52-80 12-37 87-131/3-76 89-100 Exam: General appearance: over weight, other (He is sedated and resting okay on the ventilator. He still requires maximal ventilatory support.) - Head Head exam: Present: normal inspection, normocephalic - Eye Eye exam: Present: EOMI, scleral icterus Pupils: Present: GAYLE - ENT ENT exam: Present: He has a tracheostomy tube in place. His facial swelling is better. Neck exam: Present: He has a very short large neck, the tracheostomy tube is doing okay. - Respiratory Respiratory exam: Present: He has good breath sounds bilaterally but he still has coarse breath sounds with rhonchi bilaterally. - Cardiovascular Cardiovascular exam: Present: regular rate and rhythm. Absent: gallop, systolic murmur - GI/Abdominal GI/Abdominal exam: Present: His abdomen is soft and less distended. He has hypoactive bowel sounds and is not tolerating feedings. - Extremities Exam Extremities exam: Present: edema (There is brawny edema of the lower extremities ). Absent: calf tenderness - Neurological Exam Neurological exam: Present: altered (He is not very arousable now. ) - Skin Skin exam: Present: warm, dry Results - Labs CBC & BMP: 01/07/17 04:50 01/07/17 04:50 Labs: PO2 of 79 with a PCO2 of 50 and a pH of 7.31 - Diagnostic Findings Procedure: Chest x-ray: image reviewed by me, report reviewed by me (Chest x- ray shows extensive bilateral infiltrates.) Assessment and Plan (1) History of seizures Status: Chronic Assessment and plan: The patient has had a CVA and history of seizures and is on Dilantin. He does respond okay. Current Visit: Yes (2) Acute renal failure Status: Resolved Assessment and plan: Patient came in with some renal insufficiency but his creatinine has been better. His creatinine is 1.0 today. Current Visit: Yes (3) Cellulitis of right lower extremity Status: Resolved Assessment and plan: Patient has edema and cellulitis of his legs. His legs are wrapped and stable. Current Visit: Yes (4) Septic shock Status: Resolved Assessment and plan: Patient originally presented with hypotension and some component of shock. His hemodynamics are little better now. Current Visit: Yes (5) Cirrhosis Status: Chronic Assessment and plan: The patient has cirrhosis and may not be metabolizing his medication very well. He is still sedated at present. Current Visit: Yes (6) ANDRIA (obstructive sleep apnea) Status: Chronic Assessment and plan: The patient is on the ventilator at present. He has a tracheostomy tube now. Current Visit: Yes (7) Respiratory failure Status: Acute Assessment and plan: The patient had respiratory failure and is now on the ventilator. He still has extensive infiltrates. Basically has ARDS and will try to adjust his ventilator. Current Visit: Yes Qualifiers: Chronicity: acute on chronic Respiratory failure complication: hypoxia and hypercapnia Qualified Code(s): J96.21 - Acute and chronic respiratory failure with hypoxia; J96.22 - Acute and chronic respiratory failure with hypercapnia
[2017-01-07] MEDS: PROPOFOL 1,000 MG/100 ML BOTTLE IV SCH (07:45)
[2017-01-07] MEDS: COLLAGENASE OINT 30 GM TUBE TOP SCH (09:22)
[2017-01-07] MEDS: DESITIN 4OZ/NYSTATIN 15 GRAM MIXTURE PASTE TOP SCH (09:22)
[2017-01-07] MEDS: CARVEDILOL 3.125 MG TABLET PO SCH (09:22)
[2017-01-07] MEDS: SKIN HEALING OINT (AQUAPHOR) 50 GM TUBE TOP SCH (09:23)
--- NOTE | 2017-01-07 09:33 | Discharge Summary ---
Hospital Course - Hospital Course Hospital Course: 56 yo male for transfer for LTAC care at [facility]. See initial discharge summary from 02 January. He had been admitted with sepsis syndrome associated with lower extremity cellulitis with pattern of ARDS requiring tracheostomy. Initial discharge held due to ongoing pulmonary ventilatory issues and intermittent use of vasopressors. He apparently has been accepted for transfer today. Discharge Plan - Discharge Data Disposition: Disch/Xfer to Case Management Social Worker Hos - Discharge Medications New Albuterol Neb [Proventil Neb] 2.5 mg RESP TX RT Q1H PRN #0 PRN Reason: Shortness Of Breath/Wheezing Aspirin EC Tab 325 mg PO DAILY tablet Aztreonam [Azactam] 2,000 mg IV Q8H vial Dextrose 50% [D50] 25 gm IV PRN PRN #0 vial PRN Reason: Hypoglycemia with IV access Diazepam Inj [Valium Inj] 10 mg IV Q6H syringe Furosemide Tab [Lasix Tab] 40 mg PER TUBE DAILY tablet Glucagon 1 mg IM PRN PRN #0 vial PRN Reason: Hypoglycemia w/o IV access Insulin Regular [HumuLIN R] See Protocol SUBCUT Q6HR unit LORazepam INJ [Ativan Inj] 1 mg IV Q4H PRN #0 vial PRN Reason: Delirium Tremens Lactulose Liquid [Chronulac] 20 gm PER TUBE BID Magnesium Sulf Tate [Magnesium Sulfate Inj] 2 gm IV .PER PROTOCOL PRN #0 PRN Reason: Per Protocol Metoclopramide Inj [Reglan Inj] 5 mg IV Q6HR vial Norepinephrine [Levophed] 8 mg IV TITRATE vial Ondansetron Inj [Zofran Inj] 4 mg IV Q4H PRN #0 vial PRN Reason: Nausea Potassium Chloride Liquid 20 meq PER TUBE Q4H Potassium Chloride Tate 10 meq IV .PER PROTOCOL PRN #0 PRN Reason: Per Protocol Potassium Chloride Tate 20 meq IV .PER PROTOCOL PRN #0 PRN Reason: Per Protocol Ranitidine Liquid [Zantac Syrup] 150 mg NG BID bottle Albuterol/Ipratropium Neb [Duoneb] 3 ml RESP TX RT Q6H DAPTOmycin [Cubicin] 500 mg IV Q24H vial Heparin Lock Flush 50 units IV PRN PRN #0 syringe PRN Reason: central line lock Magnesium Sulf Tate [Magnesium Sulfate Inj] 4 gm IV .PER PROTOCOL PRN #0 PRN Reason: Per Protocol Phenytoin Inj [Dilantin Inj] 150 mg IV Q8H vial Thiamine Inj [Vitamin B1 Inj] 100 mg IV DAILY vial Discontinued Ergocalciferol (Vitamin D2) [Vitamin D2] 50,000 unit PO Q7D Phenytoin ER Cap [Dilantin Cap] 200 mg PO TID Zinc Oxide [Zinc Oxide 40% Oint] 1 applic TOP TID Donepezil [Aricept] 5 mg PO BEDTIME - Follow Up or Referral - Forms/Instructions Exam - Constitutional Vitals: Period Temp Pulse Resp BP Sys/Frazier Pulse Ox Last 24 Hr 97.8 F-98.2 F 52-80 12-37 87-131/3-76 89-100 Discharge Results Procedures and tests throughout hospitalization: Pending Orders 01/08/17 04:00 BMP w/ Mg [Basic Metabolic Panel w/Mg] IN AM CBC [Comp Blood Count Auto Diff] IN AM 01/09/17 04:00 BMP w/ Mg [Basic Metabolic Panel w/Mg] IN AM CBC [Comp Blood Count Auto Diff] IN AM 01/10/17 04:00 CBC [Comp Blood Count Auto Diff] IN AM Labs on day of discharge: Labs from last 24 hours 01/07/17 01/07/17 01/07/17 05:42 04:50 04:50 WBC 8.4 RBC 3.21 L Hgb 9.9 L Hct 30.6 L MCV 95.3 MCH 31 MCHC 32.4 RDW 17.6 H Plt Count 303 MPV 10.1 Neut % (Auto) 73.4 Lymph % (Auto) 10.5 L Hooker % (Auto) 10.4 Eos % (Auto) 4.3 Baso % (Auto) 0.2 Neut # (Auto) 6.2 Lymph # (Auto) 0.9 L Hooker # (Auto) 0.9 H Eos # (Auto) 0.4 Baso # (Auto) 0.0 Immature Gran % 1.2 Nucleated RBC % 0.0 Immature Gran # 0.10 Nucleated RBCs # 0.00 ABG pH ABG pCO2 ABG pO2 ABG HCO3 ABG Total CO2 ABG O2 Saturation ABG Base Excess FiO2 Sodium 156 H Potassium 4.1 Chloride 122 H Carbon Dioxide 27 Anion Gap 11.1 BUN 59 H Creatinine 1.00 GFR Calculation 111 BUN/Creatinine Ratio 59.00 H Glucose 78 POC Glucose 71 L Calculated Osmolality 324.2 H Calcium 7.8 L Magnesium 2.6 H Phenytoin 01/07/17 01/06/17 01/06/17 03:15 23:40 18:12 WBC RBC Hgb Hct MCV MCH MCHC RDW Plt Count MPV Neut % (Auto) Lymph % (Auto) Hooker % (Auto) Eos % (Auto) Baso % (Auto) Neut # (Auto) Lymph # (Auto) Hooker # (Auto) Eos # (Auto) Baso # (Auto) Immature Gran % Nucleated RBC % Immature Gran # Nucleated RBCs # ABG pH 7.317 L ABG pCO2 50.0 H ABG pO2 79.0 L ABG HCO3 23.5 ABG Total CO2 23.4 ABG O2 Saturation 94.8 L ABG Base Excess -1.1 FiO2 60.00 Sodium Potassium Chloride Carbon Dioxide Anion Gap BUN Creatinine GFR Calculation BUN/Creatinine Ratio Glucose POC Glucose 148 H 123 H Calculated Osmolality Calcium Magnesium Phenytoin 01/06/17 01/06/17 11:49 10:11 WBC RBC Hgb Hct MCV MCH MCHC RDW Plt Count MPV Neut % (Auto) Lymph % (Auto) Hooker % (Auto) Eos % (Auto) Baso % (Auto) Neut # (Auto) Lymph # (Auto) Hooker # (Auto) Eos # (Auto) Baso # (Auto) Immature Gran % Nucleated RBC % Immature Gran # Nucleated RBCs # ABG pH ABG pCO2 ABG pO2 ABG HCO3 ABG Total CO2 ABG O2 Saturation ABG Base Excess FiO2 Sodium Potassium Chloride Carbon Dioxide Anion Gap BUN Creatinine GFR Calculation BUN/Creatinine Ratio Glucose POC Glucose 127 H Calculated Osmolality Calcium Magnesium Phenytoin 5.8 L DS: Provider Date of admission: 12/25/16 19:42 Primary care physician: Pita Munoz MD Attending physician on admission: Phil Marley MD Consults: 12/25/16 20:14 Consult to Sleep Center [CONS] Routine Reason for Sleep Center: Sleep Center Physician Consult Comment: severe maame 12/25/16 21:02 Consult to Case Mgmt/Social Srvs [CONS] Routine Reason for Case Mgmt/Social Srvs: Rehab Consult to Pharmacy [CONS] Routine Reason for Pharmacy Consult: Dose/Manage Antibiotics Consult to Physician [CONS] Routine Comment: elevated troponin Consulting Provider: Marce Sepulveda When should Consulting Provider be notified: Now Person Notified: Dr. Sepulveda Date Notified: 12/25/16 Time Notified: 21:30 12/25/16 21:20 Consult to Pharmacy [CONS] Routine Reason for Pharmacy Consult: Adjust Meds Renal Funct 12/26/16 08:24 Consult to Physician [CONS] Routine Comment: suspecetd abcess left thigh Consulting Provider: Jonny Fuentes Consulting Provider Notified: Yes Consult to Specialist Group: Surgery When should Consulting Provider be notified: Now Person Notified: MARCE Date Notified: 12/26/16 Time Notified: 08:35 12/26/16 08:40 Consult to Wound Care [facility] [CONS] Routine Reason for Wound Care: Wound Care Management Consult Comment: Right calf wound, surgeon to assess left thigh ?abscess 12/27/16 07:35 Consult to Physician [CONS] Routine Comment: respiratory failure Consulting Provider: Isidro Lanza Consulting Provider Notified: Yes Consult to Specialist Group: Pulmonology When should Consulting Provider be notified: Now Person Notified: MAUREEN Date Notified: 12/27/16 Time Notified: 08:40 12/30/16 19:17 Consult to Dietitian [CONS] Routine Reason for Dietitian: TF-Initiate/Manage 12/31/16 07:50 Consult to Case Mgmt/Social Srvs [CONS] Routine Reason for Case Mgmt/Social Srvs: LTAC 01/02/17 08:28 Consult to Physician [CONS] Routine Comment: trach if possible before transfer to [facility] Consulting Provider: Buck Canela Consulting Provider Notified: Yes When should Consulting Provider be notified: Now Consult to Specialist Group: ENT When should Consulting Provider be notified: Now Person Notified: Dr Canela Date Notified: 01/02/17 Time Notified: 08:30 Consult Notification Comment: notified of consult 01/06/17 06:56 Consult to Wound Care - [place] [CONS] Routine Reason for Wound Care: Wound Care Management Consult Comment: recons. sacrum (see pics) 01/06/17 08:50 Consult to Physician [CONS] Routine Comment: wound right buttock with escar Consulting Provider: Richy Mcmahan Consulting Provider Notified: Yes Consult to Specialist Group: Surgery When should Consulting Provider be notified: Now Person Notified: Angelic hanley Date Notified: 01/06/17 Time Notified: 09:00 Discharging clinician: Caleb Alvarado MD Expected date of discharge: 01/07/17
[2017-01-07] MEDS: ASPIRIN EC 325 MG TABLET PO SCH (09:35)
[2017-01-07] MEDS: LACTULOSE 20 GM/30 ML UDCUP PER TUBE SCH (09:35)
[2017-01-07] MEDS: THIAMINE 200 MG/2 ML VIAL IV SCH (09:35)
[2017-01-07] MEDS: RANITIDINE 150 MG/10 ML 30 ML BOTTLE NG SCH (09:35)
[2017-01-07 17:43] VITALS: BP 97/47
== END 2017-01-07 17:15 | DRG 4 ==
LOC: EDBD → EDUNIT# → N.ED 18:07 → SUATTDRO 19:42 → N.EDINP 19:42 → N.ICU 20:54
PROVIDERS: ADMIT Internal Medicine; ATTEND Internal Medicine Cardiovascular Disease